=== PATIENT | male | born 1970 | race Caucasian/White ===

== ENCOUNTER 2022-06-09 16:10 | Inpatient (IN) | payer OTHER, BC, SELFPAY ==
[2022-06-09] VITALS (7 sets, daily range): BP systolic 112–177; BP diastolic 81–109; PULSE 61–67; RESP 16–20; TEMP 35.5; O2SAT 96–100; BMI 30.8
--- NOTE | 2022-06-09 17:40 | ED.GENADULT ---
HPI - General Adult General Date Seen: 06/09/22 Chief complaint: Abdominal Pain Stated complaint: Vomiting Headache Chills Time Seen by Provider: 06/09/22 17:03 Source: patient Mode of arrival: ambulatory Limitations: no limitations History of Present Illness HPI narrative: 52 Year old gentleman presents here with his son, has a history for the last 13 hours of epigastric generalized abdominal pain with pain into his back. He also has some neck discomfort, but relates this to the vomiting 11 times that he is done, and the recent surgery he had a C1-C2 fusion done at [facility] in [place] 3 weeks ago.Describes the pain as 10 out of 10 No fevers or chills, is not COVID vaccinated but then did have COVID in September. Emesis, no blood in his stools, no dysuria, does drink 6 oz of alcohol per day and recent hospitalizations secondary to pancreatitis. Is not currently on any pain medications post fusion. Severity: severe Quality: sharp and constant Pain Consistency: constant Relieving factors: movement Exacerbating factors: movement Associated symptoms: denies other symptoms, nausea/vomiting and weakness Treatments prior to arrival: none Related Data Allergies Allergy/AdvReac Type Severity Reaction Status Date / Time Penicillins Allergy Verified 06/09/22 20:29 Review of Systems Status of ROS: Reports: 10 or more systems reviewed and unremarkable except as noted in History and below [facility] Social History Smoking Status: Never smoker How many standard drinks containing alcohol do you have on a typical day: 5 or 6 How often do you have six or more drinks on one occasion: Daily or almost daily AUDIT-C Alcohol total score: 6 Non-prescribed substance use: denies use service: No Exam Const: Vital Signs, click to edit/add: Vital Signs - 24 hr 06/09/22 16:27 Temperature 95.9 F L Pulse Rate [Pulse Oximeter] 66 Respiratory Rate 20 Blood Pressure [Ri ght Upper Arm] 177/109 H Pulse Oximetry 100 Oxygen Delivery Me thod Room Air Documenting provider has reviewed patient's vital signs: yes Common normals: oriented x3 HENMT: Common normals: normocephalic, head/scalp atraumatic, hearing grossly normal bilaterally, external ears normal, EAC's normal, TM's normal bilaterally, external nose normal, nasal mucous membranes and turbinates normal, moist oral mucous membranes, oropharynx normal, dentition normal and gingiva normal Head and scalp: normocephalic and atraumatic Nose: external nose normal and nasal mucous membranes and turbinates normal External ear: external ears normal External auditory canal: EAC's normal Tympanic membrane: TM's normal bilaterally Eye: Common normals: PERRL, EOMs intact bilaterally, conjunctivae normal, no scleral icterus, no papilledema, normal visual dillard by confrontation and fundi normal bilaterally Conjunctiva: conjunctiva(e) normal Pupil: PERRL Direct Ophthalmoscopy: no papilledema and fundi normal bilaterally Neck & C-Spine: Common normals: full ROM, no lymphadenopathy, supple, no meningeal signs, no JVD, thyroid normal and no carotid bruits Thyroid: thyroid normal Other: I would from recent surgery, well healed, no swelling of his neck, Lymph: Lymphatic: no lymphadenopathy noted and no lymphedema noted Chest: Common normals: inspection of chest normal, palpation of chest normal, inspection of breasts normal and palpation of breasts normal Resp: Common normals: normal respiratory effort, no retractions, no use of accessory muscles, clear to auscultation bilaterally and percussion normal Auscultation: clear to auscultation bilaterally Percussion: percussion normal Cardio: Common normals: no JVD, regular rate, regular rhythm, S1 normal heart sound, S2 normal heart sound, no gallops, no clicks, no murmurs, no rub and peripheral pulses 2+ throughout Rate: regular rate Rhythm: regular rhythm Heart sounds: S1 normal and S2 normal Peripheral pulses: pulses 2+ throughout GI: Common normals: no hepatosplenomegaly Inspection: normal to inspection Auscultation: hypoactive bowel sounds Palpation: tender Details: epigastric and no hepatosplenomegaly Percussion: normal to percussion Rectal Exam - Male: deferred : Common normals: no CVA tenderness, external exam normal, testes normal, scrotum normal, no scrotal swelling and no hernias present Bladder/kidney exam: no CVA tenderness Back & Pelvis: Common normals: no CVA tenderness, thoracic and lumbar spine normal to inspection, no thoracic nor lumbar tenderness, thoraco-lumbar ROM normal and straight leg raise negative bilaterally Extremity: Common normals: normal to inspection, full ROM, normal capillary refill, no joint enlargement, no clubbing, cyanosis or edema, no calf tenderness and no pedal edema Neuro: Common normals: oriented x3, CN's II-XII intact bilaterally, moves all extremities, no focal motor deficits, no sensory deficits noted, deep tendon reflexes 2+ bilaterally and gait normal Meningeal signs: no meningeal signs Psych: Common normals: mental status grossly normal, thought process normal, cooperative, affect normal, speech normal, activity/motor behavior normal, denies hallucinations, denies homicidal ideation and denies suicidal ideation Speech: normal speech Thought process: normal thought process Skin: Common normals: no rashes or lesions noted, no wounds, skin turgor normal, no jaundice, no petechiae and no mottling General skin exam: no rashes or lesions noted, turgor normal and other ( melvin complexion over face,) Course Course Hospital Course: Patient's troponin is elevated, with delta of 0.10, over almost [address] spoke to Dr. Iftikhar Germain at [facility], he was unsure of the cause of the elevated troponin, but in this setting he thinks it is somehow related to alcohol, and the duodenitis. He has a lower suspicion even though the elevation is true, that this is cardiac in nature. He recommends however watching the patient, repeating the troponin, to see with the true delta is over the course of the night, consideration of an echo in the morning. Given the fact we do not have Cardiology here I did phone around the [facility], but have been unable to secure any bed at all in any institution, I did call [facility], [facility], [facility], and the [facility], [facility], and the [facility], and [facility], and [facility]. None of these had any availability for hospitalization. Given this fact we will attempt to have the patient admitted here if nothing else watched in the emergency room overnight. If he does worsen I would consider repeating his troponin, other than this morning, leaving him on telemetry, and treating him. He has pain is improved here with the use of the Dilaudid, and I did give him Protonix also. 10:47 p.m. I spoke to the patient explained to him that I have called every place in the [facility], I cannot get him admission anywhere with Cardiology, Cardiology however figures we can keep him here safely on telemetry and repeating his troponins, if he develops chest pain or his troponin bump significantly, to call them back. Heparin is not needed specially with the case of duodenitis that he has had. We views Dilaudid to good effect here along with the Protonix. I did speak to Dr. Cain Bender from inpatient who accepted him. Reevaluation(s) Reevaluation #1: Patient's pain is markedly better with the Dilaudid, aspirin Protonix, repeating his troponin, in the morning or q.6h as suggested. With further follow-up with cardiology if he becomes unstable or develops chest pain. Time: 22:10 Vital Signs Vital signs: Initial Vital Signs Temperature 95.9 F L 06/09/22 16:27 Temperature Source Temporal Artery Scan 06/09/22 16:27 Pulse Rate 66 06/09/22 16:27 Pulse Rhythm 06/09/22 16:27 Respiratory Rate 20 06/09/22 16:27 Blood Pressure 177/109 H 06/09/22 16:27 Blood Pressure Mean 131 06/09/22 16:27 Pulse Oximetry 100 06/09/22 16:27 Oxygen Delivery Method 06/09/22 16:27 Vital Signs Temperature 95.9 F L 06/09/22 16:27 Pulse Rate 66 06/09/22 16:27 Respiratory Rate 20 06/09/22 16:27 Blood Pressure 177/109 H 06/09/22 16:27 Pulse Oximetry 100 06/09/22 16:27 Oxygen Delivery Method 06/09/22 16:27 Temperature 95.9 F L 06/09/22 16:27 Pulse Rate 66 06/09/22 16:27 Respiratory Rate 20 06/09/22 16:27 Blood Pressure 177/109 H 06/09/22 16:27 Pulse Oximetry 100 06/09/22 16:27 Oxygen Delivery Method 06/09/22 16:27 Medical Decision Making MDM Narrative Medical decision making narrative: During this evaluation of this patient I considered multiple differential diagnosis is which included the life-threatening such as appendicitis, aortic aneurysm, mesenteric ischemia, bowel perforation, volvulus, and bowel obstruction. Other differential diagnosis is include but are not limited to cholecystitis, pancreatitis, hepatitis, gastritis, GERD, diverticulitis, peptic ulcer disease, pyelonephritis/UTI, renal colic/stone, testicular torsion as well as other acute scrotal processes, inflammatory bowel disease, as well as other etiologies Medical Records Medical records reviewed: Yes I reviewed the patient's medical records Lab Data Lab results reviewed: Yes I reviewed the patient's lab results Labs: Lab Results 06/09/22 06/09/22 06/09/22 Range/Units 17:26 17:46 17:46 WBC (4.50-11.00) K/uL RBC (4.30-5.90) m/uL Hgb (13.5-17.5) gm/dL Hct (37.0-53.0) % MCV (80-100) fL MCH (26-34) pg MCHC (32-36) gm/dL RDW Coeff of Juaquin (11.5-15.5) % Plt Count (140-440) K/uL Neut % (Auto) (42.0-72.0) % Lymph % (Auto) (20-44) % [place] % (Auto) (0.0-11.0) % Eos % (Auto) (0.0-7.0) % Baso % (Auto) (0.0-3.0) % Neut # (Auto) (1.7-7.0) K/uL Lymph # (Auto) (0.90-2.90) K/uL [place] # (Auto) (0.00-0.90) K/UL Eos # (Auto) (0.00-0.50) K/uL Baso # (Auto) (0.00-0.30) K/uL Abs Immat Gran (auto) (0.00-0.30) K/uL D-Dimer Quant (PE/DVT) (0.00-0.50) ug/ml Sodium (135-149) mmol/L Potassium (3.6-5.1) mmol/L Chloride (96-114) mmol/L Carbon Dioxide (20-32) mmol/L BUN (7-30) mg/dL Creatinine (0.5-1.5) mg/dL Estimated Creat Clear Estimated GFR ml/min Glucose (60-115) mg/dL Lactate (0.5-1.9) mmol/L Calcium (8.4-10.6) mg/dL Total Bilirubin (0.1-1.5) mg/dL Direct Bilirubin (0.0-0.5) mg/dL AST (12-35) U/L ALT (4-50) U/L Alkaline Phosphatase (40-150) U/L Troponin I (0.01-0.04) ng/mL C-Reactive Protein (0.5-1.0) mg/dL Total Protein (6.0-8.3) g/dL Albumin (3.3-5.0) g/dL Amylase (18-89) U/L Lipase (23-300) U/L Urine Color Yellow (Yellow) Urine Appearance Clear (Clear) Urine pH 8.5 (5.0-8.5) Ur Specific [place] 1.015 (1.000-1.030) Urine Protein 1+ A (Negative) Urine Glucose (UA) Negative (Negative) Urine Ketones Negative (Negative) Urine Blood Negative (Negative) Urine Nitrite Negative (Negative) Urine Bilirubin Negative (Negative) Urine Urobilinogen 1.0 (0.2-1.0) Ur Leukocyte Esterase Negative (Negative) Urine RBC 2-5 A (0-2) Urine WBC 2-5 (0-5) Ur Squamous Epith Cells None (None-Few) Urine Bacteria None (None) Urine Opiates Screen Negative (Negative) Ur Oxycodone Screen POSITIVE A* (Negative) Urine Methadone Screen Negative (Negative) Ur Propoxyphene Screen Negative (Negative) Ur Barbiturates Screen Negative (Negative) U Tricyclic Antidepress Negative (Negative) Ur Phencyclidine Scrn Negative (Negative) Ur Amphetamines Screen Negative (Negative) U Methamphetamines Scrn Negative (Negative) U Benzodiazepines Scrn Negative (Negative) Urine Cocaine Screen Negative (Negative) U Marijuana (THC) Screen Negative (Negative) Ur Drug Screen Comment See Note Ethyl Alcohol (0.01-0.03) % SARS-CoV-2 (PCR) (Negative) Influenza Type A (PCR) (Negative) Influenza Type B (PCR) (Negative) RSV (PCR) (Negative) POC Troponin I 0.19 H (0.01-0.04) ng/ml 06/09/22 06/09/22 06/09/22 Range/Units 17:56 17:56 17:56 WBC 13.77 H (4.50-11.00) K/uL RBC 4.47 (4.30-5.90) m/uL Hgb 14.7 (13.5-17.5) gm/dL Hct 42.3 (37.0-53.0) % MCV 95 (80-100) fL MCH 33 (26-34) pg MCHC 35 (32-36) gm/dL RDW Coeff of Juaquin 12.3 (11.5-15.5) % Plt Count 181 (140-440) K/uL Neut % (Auto) 88.9 H (42.0-72.0) % Lymph % (Auto) 6.7 L (20-44) % [place] % (Auto) 4.0 (0.0-11.0) % Eos % (Auto) 0.0 (0.0-7.0) % Baso % (Auto) 0.2 (0.0-3.0) % Neut # (Auto) 12.20 H (1.7-7.0) K/uL Lymph # (Auto) 0.90 (0.90-2.90) K/uL [place] # (Auto) 0.60 (0.00-0.90) K/UL Eos # (Auto) 0.00 (0.00-0.50) K/uL Baso # (Auto) 0.00 (0.00-0.30) K/uL Abs Immat Gran (auto) 0.03 (0.00-0.30) K/uL D-Dimer Quant (PE/DVT) (0.00-0.50) ug/ml Sodium 137 (135-149) mmol/L Potassium 3.7 (3.6-5.1) mmol/L Chloride 103 (96-114) mmol/L Carbon Dioxide 21 (20-32) mmol/L BUN 8 (7-30) mg/dL Creatinine 0.9 (0.5-1.5) mg/dL Estimated Creat Clear 99.14 Estimated GFR 103 ml/min Glucose 143 H (60-115) mg/dL Lactate 2.7 H (0.5-1.9) mmol/L Calcium 9.9 (8.4-10.6) mg/dL Total Bilirubin 1.2 (0.1-1.5) mg/dL Direct Bilirubin 0.6 H (0.0-0.5) mg/dL AST 65 H (12-35) U/L ALT 29 (4-50) U/L Alkaline Phosphatase 171 H (40-150) U/L Troponin I (0.01-0.04) ng/mL C-Reactive Protein < 0.5 L (0.5-1.0) mg/dL Total Protein 9.0 H (6.0-8.3) g/dL Albumin 4.5 (3.3-5.0) g/dL Amylase 69 (18-89) U/L Lipase 80 (23-300) U/L Urine Color (Yellow) Urine Appearance (Clear) Urine pH (5.0-8.5) Ur Specific [place] (1.000-1.030) Urine Protein (Negative) Urine Glucose (UA) (Negative) Urine Ketones (Negative) Urine Blood (Negative) Urine Nitrite (Negative) Urine Bilirubin (Negative) Urine Urobilinogen (0.2-1.0) Ur Leukocyte Esterase (Negative) Urine RBC (0-2) Urine WBC (0-5) Ur Squamous Epith Cells (None-Few) Urine Bacteria (None) Urine Opiates Screen (Negative) Ur Oxycodone Screen (Negative) Urine Methadone Screen (Negative) Ur Propoxyphene Screen (Negative) Ur Barbiturates Screen (Negative) U Tricyclic Antidepress (Negative) Ur Phencyclidine Scrn (Negative) Ur Amphetamines Screen (Negative) U Methamphetamines Scrn (Negative) U Benzodiazepines Scrn (Negative) Urine Cocaine Screen (Negative) U Marijuana (THC) Screen (Negative) Ur Drug Screen Comment Ethyl Alcohol < 0.01 L (0.01-0.03) % SARS-CoV-2 (PCR) (Negative) Influenza Type A (PCR) (Negative) Influenza Type B (PCR) (Negative) RSV (PCR) (Negative) POC Troponin I (0.01-0.04) ng/ml 06/09/22 06/09/22 06/09/22 Range/Units 17:56 17:56 18:15 WBC (4.50-11.00) K/uL RBC (4.30-5.90) m/uL Hgb (13.5-17.5) gm/dL Hct (37.0-53.0) % MCV (80-100) fL MCH (26-34) pg MCHC (32-36) gm/dL RDW Coeff of Juaquin (11.5-15.5) % Plt Count (140-440) K/uL Neut % (Auto) (42.0-72.0) % Lymph % (Auto) (20-44) % [place] % (Auto) (0.0-11.0) % Eos % (Auto) (0.0-7.0) % Baso % (Auto) (0.0-3.0) % Neut # (Auto) (1.7-7.0) K/uL Lymph # (Auto) (0.90-2.90) K/uL [place] # (Auto) (0.00-0.90) K/UL Eos # (Auto) (0.00-0.50) K/uL Baso # (Auto) (0.00-0.30) K/uL Abs Immat Gran (auto) (0.00-0.30) K/uL D-Dimer Quant (PE/DVT) 2.03 H (0.00-0.50) ug/ml Sodium (135-149) mmol/L Potassium (3.6-5.1) mmol/L Chloride (96-114) mmol/L Carbon Dioxide (20-32) mmol/L BUN (7-30) mg/dL Creatinine (0.5-1.5) mg/dL Estimated Creat Clear Estimated GFR ml/min Glucose (60-115) mg/dL Lactate (0.5-1.9) mmol/L Calcium (8.4-10.6) mg/dL Total Bilirubin (0.1-1.5) mg/dL Direct Bilirubin (0.0-0.5) mg/dL AST (12-35) U/L ALT (4-50) U/L Alkaline Phosphatase (40-150) U/L Troponin I 0.21 H* (0.01-0.04) ng/mL C-Reactive Protein (0.5-1.0) mg/dL Total Protein (6.0-8.3) g/dL Albumin (3.3-5.0) g/dL Amylase (18-89) U/L Lipase (23-300) U/L Urine Color (Yellow) Urine Appearance (Clear) Urine pH (5.0-8.5) Ur Specific [place] (1.000-1.030) Urine Protein (Negative) Urine Glucose (UA) (Negative) Urine Ketones (Negative) Urine Blood (Negative) Urine Nitrite (Negative) Urine Bilirubin (Negative) Urine Urobilinogen (0.2-1.0) Ur Leukocyte Esterase (Negative) Urine RBC (0-2) Urine WBC (0-5) Ur Squamous Epith Cells (None-Few) Urine Bacteria (None) Urine Opiates Screen (Negative) Ur Oxycodone Screen (Negative) Urine Methadone Screen (Negative) Ur Propoxyphene Screen (Negative) Ur Barbiturates Screen (Negative) U Tricyclic Antidepress (Negative) Ur Phencyclidine Scrn (Negative) Ur Amphetamines Screen (Negative) U Methamphetamines Scrn (Negative) U Benzodiazepines Scrn (Negative) Urine Cocaine Screen (Negative) U Marijuana (THC) Screen (Negative) Ur Drug Screen Comment Ethyl Alcohol (0.01-0.03) % SARS-CoV-2 (PCR) Negative SARS-CoV-2 (Negative) Influenza Type A (PCR) Negative PCR FLU A (Negative) Influenza Type B (PCR) Negative PCR FLU B (Negative) RSV (PCR) Negative PCR RSV (Negative) POC Troponin I (0.01-0.04) ng/ml 06/09/22 06/09/22 Range/Units 19:21 20:56 WBC (4.50-11.00) K/uL RBC (4.30-5.90) m/uL Hgb (13.5-17.5) gm/dL Hct (37.0-53.0) % MCV (80-100) fL MCH (26-34) pg MCHC (32-36) gm/dL RDW Coeff of Juaquin (11.5-15.5) % Plt Count (140-440) K/uL Neut % (Auto) (42.0-72.0) % Lymph % (Auto) (20-44) % [place] % (Auto) (0.0-11.0) % Eos % (Auto) (0.0-7.0) % Baso % (Auto) (0.0-3.0) % Neut # (Auto) (1.7-7.0) K/uL Lymph # (Auto) (0.90-2.90) K/uL [place] # (Auto) (0.00-0.90) K/UL Eos # (Auto) (0.00-0.50) K/uL Baso # (Auto) (0.00-0.30) K/uL Abs Immat Gran (auto) (0.00-0.30) K/uL D-Dimer Quant (PE/DVT) (0.00-0.50) ug/ml Sodium (135-149) mmol/L Potassium (3.6-5.1) mmol/L Chloride (96-114) mmol/L Carbon Dioxide (20-32) mmol/L BUN (7-30) mg/dL Creatinine (0.5-1.5) mg/dL Estimated Creat Clear Estimated GFR ml/min Glucose (60-115) mg/dL Lactate (0.5-1.9) mmol/L Calcium (8.4-10.6) mg/dL Total Bilirubin (0.1-1.5) mg/dL Direct Bilirubin (0.0-0.5) mg/dL AST (12-35) U/L ALT (4-50) U/L Alkaline Phosphatase (40-150) U/L Troponin I (0.01-0.04) ng/mL C-Reactive Protein (0.5-1.0) mg/dL Total Protein (6.0-8.3) g/dL Albumin (3.3-5.0) g/dL Amylase (18-89) U/L Lipase (23-300) U/L Urine Color (Yellow) Urine Appearance (Clear) Urine pH (5.0-8.5) Ur Specific [place] (1.000-1.030) Urine Protein (Negative) Urine Glucose (UA) (Negative) Urine Ketones (Negative) Urine Blood (Negative) Urine Nitrite (Negative) Urine Bilirubin (Negative) Urine Urobilinogen (0.2-1.0) Ur Leukocyte Esterase (Negative) Urine RBC (0-2) Urine WBC (0-5) Ur Squamous Epith Cells (None-Few) Urine Bacteria (None) Urine Opiates Screen (Negative) Ur Oxycodone Screen (Negative) Urine Methadone Screen (Negative) Ur Propoxyphene Screen (Negative) Ur Barbiturates Screen (Negative) U Tricyclic Antidepress (Negative) Ur Phencyclidine Scrn (Negative) Ur Amphetamines Screen (Negative) U Methamphetamines Scrn (Negative) U Benzodiazepines Scrn (Negative) Urine Cocaine Screen (Negative) U Marijuana (THC) Screen (Negative) Ur Drug Screen Comment Ethyl Alcohol (0.01-0.03) % SARS-CoV-2 (PCR) (Negative) Influenza Type A (PCR) (Negative) Influenza Type B (PCR) (Negative) RSV (PCR) (Negative) POC Troponin I 0.21 H 0.29 H (0.01-0.04) ng/ml Imaging Data CT scan - abdomen: Attestation: I have reviewed the pertinent imaging results. My impression: Inflammatory changes around the duodenum and head of the pancreas, Radiologist's impression: Inflammatory changes around the duodenum consistent with duodenitis or possible early ulcer formation, no evidence of aortic dissection. ECG Data Attestation: I personally reviewed and interpreted this ECG as follows: Interpretation: EKG shows no evidence of acute ST wave changes, repeat EKG shows similar. Critical Care Time Critical Care Time Critical Care Time: Yes Attestation: The patient required my highest level preparedness to intervene emergently and I personally spent this critical care time directly and personally managing the patient. This critical care time included: Obtaining a history; Examining the patient; Pulse oximetry; Ordering and reviewing of studies; Arranging urgent treatment with development of a management plan; Evaluation of patients response to treatment; Frequent reassessment discussions with other providers. This critical care time was performed to assess and manage the high probability of imminent life-threatening deterioration that could result in multiorgan failure. It was exclusive of separate billable procedures and treating other patients and teaching time. Total Critical Care Time in Minutes: 60 Discharge Plan Discharge Clinical Impression: Elevated troponin, Duodenitis Patient Disposition: Admitted As Inpatient Follow Up/Referrals: Provider,Not a Local [Primary Care Provider] -
[2022-06-09 18:01] LABS: Amphetamine Screen Urine Negative (Negative); Barbiturate Screen Urine Negative (Negative); Benzodiazepines Screen Urine Negative (Negative); Cannabinoid Screen Urine Negative (Negative); Cocaine Screen Urine Negative (Negative); Methadone Screen Urine Negative (Negative); Methamphetamines Screen Urine Negative (Negative); Opiate Screen Urine Negative (Negative); Phencyclidine Screen Urine Negative (Negative); Tricyclic Antidepressant Urine Negative (Negative)
[2022-06-09 18:02] LABS: Lactate* 2.7 mmol/L (0.5-1.9)
[2022-06-09 18:05] LABS: Basophils Percent Auto 0.2 % (0.0-3.0); Hematocrit 42.3 % (37.0-53.0); Hemoglobin* 14.7 gm/dL (13.5-17.5); Immature Granulocytes Abs Auto 0.03 K/uL (0.00-0.30); Lymphocytes Percent Auto 6.7 % (20-44); Mean Corpuscular HGB Conc 35 gm/dL (32-36); Mean Corpuscular Hemoglobin 33 pg (26-34); Mean Corpuscular Volume 95 fL (80-100); Neutrophils Percent Auto 88.9 % (42.0-72.0); Platelet Count* 181 K/uL (140-440); RDW Coefficient of Variation % 12.3 % (11.5-15.5); Red Blood Count 4.47 m/uL (4.30-5.90); Slide Review Reflex No; White Blood Count* 13.77 K/uL (4.50-11.00)
[2022-06-09 18:07] LABS: Appearance Urine Clear (Clear); Bilirubin Urine Negative (Negative); Blood Urine Negative (Negative); Color Urine Yellow (Yellow); Glucose Urine Negative (Negative); Ketones Urine Negative (Negative); Leukocyte Esterase Urine Negative (Negative); Nitrite Urine Negative (Negative); Protein Urine 1+ (Negative); Specific Gravity Urine 1.015 (1.000-1.030); pH Urine 8.5 (5.0-8.5)
[2022-06-09] MEDS: HYDROmorphone 0.5 mg/0.5 ml inj IVP ×2 (18:07→20:10)
[2022-06-09] MEDS: ONDANSETRON 2 MG/ML inj 4 MG IVP (18:07)
[2022-06-09 18:09] LABS: Troponin, Point-of-Care* 0.19 ng/ml (0.01-0.04)
[2022-06-09 18:14] LABS: Oxycodone Screen Urine POSITIVE (Negative)
[2022-06-09] MEDS: 0.9 % SODIUM CHLORIDE 1000 ml 1,000 ML IV (18:14)
[2022-06-09 18:21] LABS: Albumin* 4.5 g/dL (3.3-5.0); Chloride* 103 mmol/L (96-114); Potassium* 3.7 mmol/L (3.6-5.1); Sodium* 137 mmol/L (135-149)
[2022-06-09 18:23] LABS: Amylase* 69 U/L (18-89); Creatinine* 0.9 mg/dL (0.5-1.5); Est. Creatinine Clearance* 99.14; Estimated Glomerular Filt Rate 103 ml/min
[2022-06-09 18:24] LABS: Alkaline Phosphatase* 171 U/L (40-150); Aspartate Amino Transferase* 65 U/L (12-35); Bilirubin Direct* 0.6 mg/dL (0.0-0.5); Bilirubin Total* 1.2 mg/dL (0.1-1.5); Blood Urea Nitrogen* 8 mg/dL (7-30); Calcium* 9.9 mg/dL (8.4-10.6); Carbon Dioxide* 21 mmol/L (20-32); Glucose* 143 mg/dL (60-115); Lipase* 80 U/L (23-300)
[2022-06-09 18:25] LABS: Alanine Aminotransferase* 29 U/L (4-50)
[2022-06-09 18:31] LABS: C Reactive Protein* < 0.5 mg/dL (0.5-1.0); Ethanol* < 0.01 % (0.01-0.03)
[2022-06-09 18:38] LABS: PCR FLU A Negative PCR FLU A (Negative); PCR FLU B Negative PCR FLU B (Negative); PCR RSV Negative PCR RSV (Negative)
[2022-06-09 18:42] LABS: SARS PCR* Negative SARS-CoV-2 (Negative)
[2022-06-09 18:49] LABS: Troponin I* 0.21 ng/mL (0.01-0.04)
--- NOTE | 2022-06-09 18:53 | ED.NURSE ---
Critical lab: Troponin 0.21, handed to at 1850
--- NOTE | 2022-06-09 19:12 | CRLHL7_ITS ---
For Patients: As a result of the Century Cures Act, medical imaging exams and procedure reports are released immediately into your electronic medical record. You may view this report before your referring provider. If you have questions, please contact your health care provider. INDICATION: ELEVATED TROPONIN TECHNIQUE: Chest 2 views. COMPARISON: 02/27/21 FINDINGS: Cardiovascular and mediastinum: Heart size and vasculature are normal in caliber and appearance. Mediastinum is within normal limits. Lungs and pleural spaces: Lungs are clear. No sign of infiltrate or mass. No sign of pleural effusion. No pneumothorax. Bones and soft tissues: No significant findings. IMPRESSION: Unremarkable chest. Dictated by: Iftikhar De Jesus MD @ 06/09/2022 19:52:33 (Electronically Signed)
[2022-06-09] MEDS: ASPIRIN 81 MG TAB.CHEW 324 MG PO (19:23)
[2022-06-09 19:32] LABS: Troponin, Point-of-Care* 0.21 ng/ml (0.01-0.04)
--- NOTE | 2022-06-09 19:43 | CRLHL7_ITS ---
For Patients: As a result of the Century Cures Act, medical imaging exams and procedure reports are released immediately into your electronic medical record. You may view this report before your referring provider. If you have questions, please contact your health care provider. INDICATION: ELEVATED TROPONIN ABD PAIN TECHNIQUE: CT chest without contrast and CT chest, abdomen and pelvis acquired with 95 cc Isovue 370 intravenous contrast. Contrast, dissection protocol. COMPARISON: None. FINDINGS: CHEST: Cardiovascular structures: The unenhanced images demonstrate no evidence of aortic intramural hematoma. The entire aorta is normal in caliber and there is no sign of aortic dissection. Heart size is normal. Mediastinum and jin: No mass or adenopathy. Lungs and pleura: Lungs are clear. No pleural effusions. Incidental right apical bleb. Chest wall and axilla: No mass or adenopathy. Bones: Unremarkable for age. ABDOMEN AND PELVIS: Liver: Fatty infiltration. Gallbladder and bile ducts: Unremarkable. Pancreas: Unremarkable. Spleen: Unremarkable. Adrenal glands: Unremarkable. Kidneys: Unremarkable. GI tract: Wall thickening of the proximal duodenum, measuring up to 1 cm. Adjacent inflammatory changes noted in the surrounding fat. No free air. No abscess. Vascular structures: Unremarkable. Lymph nodes: Mildly enlarged reactive lymph nodes in the upper retroperitoneum noted measuring up to 1.2 cm. Miscellaneous: Unremarkable. No free air or significant free fluid. Pelvic Organs: Unremarkable. Bones: Unremarkable for age. IMPRESSION: No evidence of aortic dissection or pulmonary embolism. Moderately severe duodenitis involving the proximal duodenum with reactive adenopathy. This may be secondary to duodenal ulcer. No abscess or free air. Please note that all CT scans at this facility use dose modulation, iterative reconstruction, and/or weight-based dosing when appropriate to reduce radiation dose to as low as reasonably achievable. Dictated by Iftikhar Negrete MD @ 06/09/2022 8:57:44 PM (Electronically Signed)
[2022-06-09 19:44] LABS: D Dimer Quantitative* 2.03 ug/ml (0.00-0.50)
[2022-06-09] MEDS: 0.9 % SODIUM CHLORIDE 500 ML 500 ML IV (20:10)
[2022-06-09 21:22] LABS: Troponin, Point-of-Care* 0.29 ng/ml (0.01-0.04)
[2022-06-09] MEDS: PANTOPRAZOLE SODIUM 40 MG INJ IVP (21:52)
--- NOTE | 2022-06-09 23:50 | ED.NURSE ---
report to med surg, pt transported via [facility] by [facility]
[2022-06-10] VITALS (13 sets, daily range): BP systolic 117–151; BP diastolic 80–96; PULSE 52–71; RESP 16–18; TEMP 36.6–36.8; O2SAT 97–99
--- NOTE | 2022-06-10 01:18 | P.IMCN_ITS ---
Date of Consult Consult date: 06/10/22 Primary Care Provider: Not a Local Provider Consult Narrative Narrative: Deepak Lerma Hospitalist ADMISSION SUPPORT NOTE eHospitalist was contacted by Dr. Bender with request of admission support. Chief complaint: Epigastric pain HPI: The patient reports that around 5 AM he just was not feeling well. He developed pain in his upper abdomen that radiated to his back and then he also developed pain in his neck with associated headache. He then started vomiting and had about 11 episodes of bilious vomiting. The pain in his upper abdomen was constant, described as stabbing in nature however the pain in his back and neck were just a constant ache. Work-up in the ED revealed concern for duodenitis. Review of systems other than mentioned above is negative Home Medications: Patient unable to remember the name of his medications Pertinent Medical History: GERD, depression, gout, BPH, hypertension, neck surgery about 3 and half weeks ago, back surgery Pertinent Social History: , quit smoking about 12 years ago, denies drugs of abuse however drinks about 6 beers per night on average. 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 [facility] Medical History Acid reflux Anxiety Depression Enlarged prostate Gout Hypertension Social History Highest level of school completed/degree received: high school graduate Smoking Status: Former smoker What tobacco products do you use: cigarettes Smoking quit date/years: <= 15 years ago Do you use any of these nicotine containing products: None Second hand tobacco smoke exposure: No How often do you have a drink containing alcohol: 4 or more times a week Alcohol type: beer Alcohol type details: 6 beers/day How many standard drinks containing alcohol do you have on a typical day: 5 or 6 How often do you have six or more drinks on one occasion: Daily or almost daily AUDIT-C Alcohol total score: 10 Non-prescribed substance use: denies use Caffeine: Yes (rare) service: No Meds Home Medications and Allergies Home Medications Medication Instructions Recorded Confirmed Type Unobtainable 06/10/22 06/10/22 History Allergies Allergy/AdvReac Type Severity Reaction Status Date / Time Penicillins Allergy Verified 06/09/22 20:29 Exam Narrative: Exam Narrative: Exam (performed via interactive video with assistance of bedside nurse): General: Alert, cooperative, no acute distress HEENT: Pupils reported ERRL, oral mucosa pink and moist without erythema Lungs: Clear to auscultation bilaterally without crackle or wheeze CV: Regular rate and rhythm without loud murmur rub or gallop Abd does exhibit signs of pain with palpation done by bedside nurse in the upper abdomen with voluntary guarding, soft Ext: No pitting edema noted Skin: No rashes, bruises or lesions appreciated on gross visualization of exposed skin Neuro: Alert, oriented x 3. CN III -VII, XI, XII grossly intact, moves all extremities without any significant focal deficit appreciated Const: Vital Signs, click to edit/add: Vital Signs - 24 hr 06/09/22 16:27 06/09/22 23:40 06/09/22 23:00 Temperature 95.9 F L Pulse Rate Pulse Rate [Pulse Oximeter] 66 67 66 Pulse Rate [Right Pulse Oximeter] Respiratory Rate 20 16 16 Blood Pressure [Ri ght Arm] Blood Pressure [Ri ght Upper Arm] 177/109 H 137/86 130/104 H Pulse Oximetry 100 98 97 Oxygen Delivery Wy thod Room Air Room Air Room Air 06/09/22 22:20 06/09/22 21:40 06/09/22 21:00 Temperature Pulse Rate Pulse Rate [Pulse Oximeter] 61 61 61 Pulse Rate [Right Pulse Oximeter] Respiratory Rate 16 16 16 Blood Pressure [Ri ght Arm] Blood Pressure [Ri ght Upper Arm] 138/102 H 112/88 147/81 H Pulse Oximetry 97 96 97 Oxygen Delivery Wy thod Room Air Room Air Room Air 06/09/22 20:20 06/10/22 00:19 06/10/22 00:23 Temperature Pulse Rate 63 Pulse Rate [Pulse Oximeter] 64 Pulse Rate [Right Pulse Oximeter] Respiratory Rate 16 16 Blood Pressure [Ri ght Arm] Blood Pressure [Ri ght Upper Arm] 145/90 H Pulse Oximetry 98 97 Oxygen Delivery Wy thod Room Air Room Air 06/10/22 00:59 Temperature 98 F Pulse Rate Pulse Rate [Pulse Oximeter] Pulse Rate [Right Pulse Oximeter] 65 Respiratory Rate 16 Blood Pressure [Ri ght Arm] 151/95 H Blood Pressure [Ri ght Upper Arm] Pulse Oximetry 97 Oxygen Delivery Wy thod Room Air Labs Labs: Short CBC 06/09/22 Range/Units 17:56 WBC 13.77 H (4.50-11.00) K/uL Hgb 14.7 (13.5-17.5) gm/dL Hct 42.3 (37.0-53.0) % Plt Count 181 (140-440) K/uL BMP 06/09/22 17:56 Sodium 137 Potassium 3.7 Chloride 103 Carbon Dioxide 21 BUN 8 Creatinine 0.9 Glucose 143 H Calcium 9.9 Cardiac Enzymes 06/09/22 Range/Units 18:15 Troponin I 0.21 H* (0.01-0.04) ng/mL Liver Function 06/09/22 Range/Units 17:56 Total Bilirubin 1.2 (0.1-1.5) mg/dL Direct Bilirubin 0.6 H (0.0-0.5) mg/dL AST 65 H (12-35) U/L ALT 29 (4-50) U/L Alkaline Phosphatase 171 H (40-150) U/L Albumin 4.5 (3.3-5.0) g/dL Urine 06/09/22 Range/Units 17:46 Urine Color Yellow (Yellow) Urine Appearance Clear (Clear) Urine pH 8.5 (5.0-8.5) Ur Specific [place] 1.015 (1.000-1.030) Urine Protein 1+ A (Negative) Urine Glucose (UA) Negative (Negative) Assessment and Plan Assessment and plan (1) Duodenitis: Status: Acute (2) Elevated troponin: Status: Acute Plan EKG: Per my interpretation showed NSR at 75 bpm with no ischemic changes Assessment and Plan: 1. Upper abdominal pain-secondary to duodenitis with concern for peptic ulcer disease. He will be placed on Protonix twice daily. Kept n.p.o. until he can be seen by surgery. I am uncertain whether an EGD is planned for tomorrow versus outpatient to evaluate and obtain biopsies. 2. Daily alcohol use-of at least 6 beers per day. Concern for alcohol withdrawal. Placed on CIWA with Ativan as well as thiamine and folic acid 3. Hypertension-he does not remember his medications however resume once medications reconciled 4. Depression-resume antidepressants once medications reconciled. Stable. 5. Gout-stable. Continue allopurinol once reconciled 6. BPH-stable. Continue Flomax once reconciled. 7. Elevated troponin-Per report, the ED provider discussed with cardiology who did not feel like the elevated troponin is related to coronary artery disease however more so to duodenitis. Continue to trend troponin. 8. DVT prophylaxis-SCDs 9. CODE STATUS full code discussed with patient Chart review was performed as well as evaluation of the patient via video. Thank you for involving ehospitalist. Please contact [phone] if further assistance is needed.
[2022-06-10] MEDS: OXYCODONE 5 MG TABLET PO ×4 (01:47→20:03)
[2022-06-10] MEDS: ACETAMINOPHEN 325 MG TABLET 650 MG PO ×4 (01:48→20:04)
[2022-06-10 02:02] LABS: Lactate* 0.9 mmol/L (0.5-1.9)
[2022-06-10 02:36] LABS: Troponin I* 0.44 ng/mL (0.01-0.04)
[2022-06-10 06:25] LABS: Basophils Absolute Auto 0.03 K/uL (0.00-0.30); Basophils Percent Auto 0.3 % (0.0-3.0); Eosinophils Absolute Auto 0.08 K/uL (0.00-0.50); Eosinophils Percent Auto 0.8 % (0.0-7.0); Hematocrit 38.4 % (37.0-53.0); Immature Granulocytes Abs Auto 0.02 K/uL (0.00-0.30); Lymphocytes Percent Auto 19.1 % (20-44); Mean Corpuscular HGB Conc 34 gm/dL (32-36); Mean Corpuscular Hemoglobin 33 pg (26-34); Mean Corpuscular Volume 98 fL (80-100); Monocytes Percent Auto 7.2 % (0.0-11.0); Neutrophils Percent Auto 72.4 % (42.0-72.0); Platelet Count* 158 K/uL (140-440); RDW Coefficient of Variation % 12.7 % (11.5-15.5); Red Blood Count 3.91 m/uL (4.30-5.90); White Blood Count* 9.96 K/uL (4.50-11.00)
[2022-06-10 06:43] LABS: Albumin* 3.9 g/dL (3.3-5.0); Chloride* 105 mmol/L (96-114)
[2022-06-10 06:44] LABS: Potassium* 3.4 mmol/L (3.6-5.1); Sodium* 138 mmol/L (135-149)
[2022-06-10 06:46] LABS: Alkaline Phosphatase* 133 U/L (40-150); Aspartate Amino Transferase* 55 U/L (12-35); Bilirubin Total* 0.9 mg/dL (0.1-1.5); Blood Urea Nitrogen* 9 mg/dL (7-30); Carbon Dioxide* 23 mmol/L (20-32); Creatinine* 0.9 mg/dL (0.5-1.5); Est. Creatinine Clearance* 99.14; Estimated Glomerular Filt Rate 103 ml/min; Total Protein* 7.7 g/dL (6.0-8.3)
[2022-06-10 06:47] LABS: Alanine Aminotransferase* 21 U/L (4-50); Calcium* 8.8 mg/dL (8.4-10.6); Glucose* 102 mg/dL (60-115)
[2022-06-10 06:57] LABS: Hemoglobin A1C* 5.08 % (0-5.6)
[2022-06-10 07:05] LABS: Slide Review Reflex No
[2022-06-10 07:16] LABS: Troponin I* 0.69 ng/mL (0.01-0.04)
[2022-06-10] MEDS: 0.9 % SODIUM CHLORIDE 500 ML 500 ML IV (07:36)
[2022-06-10] MEDS: MORPHINE 4 MG/ML INJ IVP ×3 (07:36→22:31)
--- NOTE | 2022-06-10 07:41 | PC.NURSE ---
Pt pleasant and cooperative. indep in room. Rating pain 4/10 in right upper abd, Oxy given with relief. Denies chest pain. Denies palpations. No BM. Lula urine output. BP elevated. Other VSS & WNL. Tele = NSR. No Ativan needed per [facility] protocol. ?
--- NOTE | 2022-06-10 07:50 | P.IMHP_ITS ---
Hospitalist- H&P: HPI History of Present Illness Date Seen: 06/10/22 Chief complaint: Vomiting Headache Chills Narrative: Jonathan Cancino is a 52 year old male who presented to the emergency room last night for abdominal pain. Starting yesterday morning, he began having pain in his epigastrium, radiating into his back. This is accompanied by nausea and bilious emesis. He denied hematemesis. No chest pain or dyspnea. No lower extremity edema. ER course and findings: - CT scan of chest abdomen and pelvis was negative for pancreatitis or acute aortic process; positive for duodenitis - troponin elevated - no acute changes on EKG. ER physician discussed case with Cardiology, who felt that patient could be monitored on telemetry with close follow-up - Admitted by [facility] telehospitalist overnight, started on BID PPI When I see patient this morning, he is hungry and has no other complaints. He specifically denies chest pain or dyspnea. His troponin has continued to increase without acute changes on EKG. Past medical history includes essential hypertension, anxiety, and gout. Also has GERD and BPH. Had a head injury approximately 2 years ago, with some chronic neck pain as result. Had a neck surgery within the past year, no problems with anesthesia. 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 He was admitted to the hospital at that time, seen by Neurology, treated with anti epileptics for a short time, has not been on anti seizure medications for > 6 months and has had no seizures since. Nonsmoker (quit 12 years ago). Drinks 5-6 light beers every night. No history of withdrawal. 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 His half brother had a heart attack, no other significant family history for coronary artery disease. Review of Systems Status of ROS: Reports: 10 or more systems reviewed and unremarkable except as noted in History and below [facility] Medical History (Updated 06/10/22 @ 15:52 by Kimberley Rivera MD) Acid reflux Alcohol abuse, daily use Anxiety Depression Enlarged prostate Essential hypertension Gout Hypertension Perianal abscess Surgical History (Updated 06/10/22 @ 13:20 by Marybel Lopes MD) S/P cervical spinal fusion S/P knee surgery Social History (Updated 06/10/22 @ 13:21 by Marybel Lopes MD) Narrative: Not working currently secondary to disability from spine surgery. Highest level of school completed/degree received: high school graduate Smoking Status: Former smoker What tobacco products do you use: cigarettes Smoking quit date/years: <= 15 years ago Do you use any of these nicotine containing products: None Second hand tobacco smoke exposure: No How often do you have a drink containing alcohol: 4 or more times a week Alcohol type: beer Alcohol type details: 6 beers/day How many standard drinks containing alcohol do you have on a typical day: 5 or 6 How often do you have six or more drinks on one occasion: Daily or almost daily AUDIT-C Alcohol total score: 10 Non-prescribed substance use: denies use Caffeine: Yes (rare) service: No Meds Home Medications and Allergies Home Medications Medication Instructions Recorded Confirmed Type allopurinol 300 mg tablet 300 mg PO DAILY 06/10/22 06/10/22 History atenolol 100 mg tablet 100 mg PO DAILY 06/10/22 06/10/22 History bupropion HCl 300 mg 24 hr tablet, 300 mg PO DAILY 06/10/22 06/10/22 History extended release citalopram 10 mg tablet 10 mg PO DAILY 06/10/22 06/10/22 History hydroxyzine HCl 25 mg tablet 25 mg PO QID PRN 06/10/22 06/10/22 History lisinopril 10 1 tab PO DAILY 06/10/22 06/10/22 History mg-hydrochlorothiazide 12.5 mg tablet omeprazole 20 mg capsule,delayed 20 mg PO DAILY 06/10/22 06/10/22 History release tamsulosin 0.4 mg capsule 0.4 mg PO DAILY 06/10/22 06/10/22 History Allergies Allergy/AdvReac Type Severity Reaction Status Date / Time Penicillins Allergy Verified 06/09/22 20:29 Exam Narrative: Exam Narrative: GEN: Alert and oriented, answering questions appropriately HEENT: Normal external ears, EOMIs bilaterally, no scleral icterus CV: RRR, No concerning murmurs, rubs, or gallops R: LCTA bilaterally without concerning wheezing, rales, or rhonchi Abdomen: Soft, mild tenderness to palpation over the epigastrium Ext: wwp, no concerning edema Skin: No concerning skin lesions or rashes on exposed skin Neuro: Nonfocal Psych: Appropriate Const: Vital Signs, click to edit/add: Vital Signs - 24 hr 06/09/22 16:27 06/09/22 23:40 06/09/22 23:00 Temperature 95.9 F L Pulse Rate Pulse Rate [Pulse Oximeter] 66 67 66 Pulse Rate [Right Pulse Oximeter] Respiratory Rate 20 16 16 Blood Pressure [Ri ght Arm] Blood Pressure [Ri ght Upper Arm] 177/109 H 137/86 130/104 H Pulse Oximetry 100 98 97 Oxygen Delivery Me thod Room Air Room Air Room Air 06/09/22 22:20 06/09/22 21:40 06/09/22 21:00 Temperature Pulse Rate Pulse Rate [Pulse Oximeter] 61 61 61 Pulse Rate [Right Pulse Oximeter] Respiratory Rate 16 16 16 Blood Pressure [Ri ght Arm] Blood Pressure [Ri ght Upper Arm] 138/102 H 112/88 147/81 H Pulse Oximetry 97 96 97 Oxygen Delivery Ia thod Room Air Room Air Room Air 06/09/22 20:20 06/10/22 00:19 06/10/22 00:23 Temperature Pulse Rate 63 Pulse Rate [Pulse Oximeter] 64 Pulse Rate [Right Pulse Oximeter] Respiratory Rate 16 16 Blood Pressure [Ri ght Arm] Blood Pressure [Ri ght Upper Arm] 145/90 H Pulse Oximetry 98 97 Oxygen Delivery Ia thod Room Air Room Air 06/10/22 00:59 06/10/22 02:48 06/10/22 03:17 Temperature 98 F 97.8 F Pulse Rate 71 Pulse Rate [Pulse Oximeter] Pulse Rate [Right Pulse Oximeter] 65 71 Respiratory Rate 16 18 Blood Pressure [Ri ght Arm] 151/95 H 138/89 Blood Pressure [Ri ght Upper Arm] Pulse Oximetry 97 99 Oxygen Delivery Me thod Room Air Room Air 06/10/22 07:46 Temperature 98.2 F Pulse Rate Pulse Rate [Pulse Oximeter] Pulse Rate [Right Pulse Oximeter] 55 L Respiratory Rate 16 Blood Pressure [Ri ght Arm] 144/96 H Blood Pressure [Ri ght Upper Arm] Pulse Oximetry 98 Oxygen Delivery Ia thod Room Air Hospitalist - H&P: Result Labs Labs: Short CBC 06/09/22 06/10/22 Range/Units 17:56 06:05 WBC 13.77 H 9.96 (4.50-11.00) K/uL Hgb 14.7 13.0 L (13.5-17.5) gm/dL Hct 42.3 38.4 (37.0-53.0) % Plt Count 181 158 (140-440) K/uL BMP 06/09/22 06/10/22 17:56 06:05 Sodium 137 138 Potassium 3.7 3.4 L Chloride 103 105 Carbon Dioxide 21 23 BUN 8 9 Creatinine 0.9 0.9 Glucose 143 H 102 Calcium 9.9 8.8 Cardiac Enzymes 06/09/22 06/10/22 06/10/22 Range/Units 18:15 01:55 06:05 Troponin I 0.21 H* 0.44 H* 0.69 H* (0.01-0.04) ng/mL Liver Function 06/09/22 06/10/22 Range/Units 17:56 06:05 Total Bilirubin 1.2 0.9 (0.1-1.5) mg/dL Direct Bilirubin 0.6 H (0.0-0.5) mg/dL AST 65 H 55 H (12-35) U/L ALT 29 21 (4-50) U/L Alkaline Phosphatase 171 H 133 (40-150) U/L Albumin 4.5 3.9 (3.3-5.0) g/dL Urine 06/09/22 Range/Units 17:46 Urine Color Yellow (Yellow) Urine Appearance Clear (Clear) Urine pH 8.5 (5.0-8.5) Ur Specific [place] 1.015 (1.000-1.030) Urine Protein 1+ A (Negative) Urine Glucose (UA) Negative (Negative) ECG ECG interpretation date: 06/10/22 ECG interpretation time: 07:10 Assessment and Plan Assessment and plan (1) NSTEMI (non-ST elevated myocardial infarction): Status: Acute Assessment and Plan: Patient has reassuring EKG findings and no chest pain. Discussed the case with Dr. Turk of Cardiology at [facility]; he does not feel that any acute pharmacologic interventions are necessary at this time. He recommends a nuclear stress test which we are unable to perform today; TTE will be obtained and we will obtain nuclear med stress test as an outpatient. Follow troponins to [facility]. Add statin to home medications. (2) Elevated troponin: Status: Acute (3) Duodenitis: Status: Acute Assessment and Plan: Reviewed case with Dr. Lopes of general surgery, appreciate her input. Will continue to keep patient NPO at this time, continue IV PPI BID. Trend hemoglobin, guaiac stool, H Pylori pending. (4) Essential hypertension: Status: Acute Assessment and Plan: Restart home meds today, BP stable. (5) Alcohol abuse, daily use: Status: Acute Assessment and Plan: Started on thiamine by ARIELLE overnight, no history of withdrawal. Follow CIWA scores.
[2022-06-10] MEDS: lisinopriL 10 MG TABLET PO (08:21)
[2022-06-10] MEDS: buPROPion XL 150 MG TABLET 300 MG PO (08:21)
[2022-06-10] MEDS: FOLIC ACID 1 MG TABLET PO (08:22)
[2022-06-10] MEDS: THIAMINE 100 MG TABLET PO (08:22)
[2022-06-10] MEDS: hydroCHLOROthiazide 12.5 MG CAPSULE PO (08:22)
[2022-06-10] MEDS: TAMSULOSIN HCL 0.4 MG CAPSULE PO (08:23)
[2022-06-10] MEDS: atenoloL 50 MG TABLET 100 MG PO (08:23)
[2022-06-10] MEDS: PANTOPRAZOLE SODIUM 40 MG INJ IVP ×2 (08:23→20:06)
[2022-06-10] MEDS: CITALOPRAM HYDROBROMIDE 20 MG TABLET 10 MG PO (08:23)
[2022-06-10] MEDS: 0.9 % SODIUM CHLORIDE 1000 ml 1,000 ML 100 ML IV ×2 (11:42→22:32)
--- NOTE | 2022-06-10 13:21 | P.GSCN_ITS ---
History of Present Illness Consult details Date Seen: 06/10/22 Consult date: 06/10/22 Narrative: The patient is a 52-year-old male who presents to the emergency department last evening with feeling unwell and developing epigastric and right upper quadrant pain. He states that he was working in his garage until 3:00 a.m. yesterday morning and then at 5:00 a.m. began feeling unwell. He states that he had developed right upper quadrant epigastric pain as well as bloating and vomited 11 times. After that he had some back and neck pain but thinks this is because he recently had a cervical spine fusion 3 weeks ago. He had shortness of breath 20 presented to the emergency department but no chest pain. He did not vomited any blood. He has not had a bowel movement since this occurred but he has not had blood in his stool. In the emergency department he was found to have severe duodenitis. He states that he has had that before and was hospitalized here. He thinks he has had an upper endoscopy previously. He feels better today and would like to eat but his pain is still there (though improved). Review of Systems Status of ROS: Reports: 10 or more systems reviewed and unremarkable except as noted in History and below [facility] Medical History (Updated 06/10/22 @ 13:20 by Marybel Lopes MD) Acid reflux Alcohol abuse, daily use Anxiety Depression Enlarged prostate Essential hypertension Gout Hypertension Perianal abscess Surgical History (Updated 06/10/22 @ 13:20 by Marybel Lopes MD) S/P cervical spinal fusion S/P knee surgery Social History (Updated 06/10/22 @ 13:21 by Marybel Lopes MD) Narrative: Not working currently secondary to disability from spine surgery. Highest level of school completed/degree received: high school graduate Smoking Status: Former smoker What tobacco products do you use: cigarettes Smoking quit date/years: <= 15 years ago Do you use any of these nicotine containing products: None Second hand tobacco smoke exposure: No How often do you have a drink containing alcohol: 4 or more times a week Alcohol type: beer Alcohol type details: 6 beers/day How many standard drinks containing alcohol do you have on a typical day: 5 or 6 How often do you have six or more drinks on one occasion: Daily or almost daily AUDIT-C Alcohol total score: 10 Non-prescribed substance use: denies use Caffeine: Yes (rare) service: No Meds Home Medications and Allergies Home Medications Medication Instructions Recorded Confirmed Type allopurinol 300 mg tablet 300 mg PO DAILY 06/10/22 06/10/22 History atenolol 100 mg tablet 100 mg PO DAILY 06/10/22 06/10/22 History bupropion HCl 300 mg 24 hr tablet, 300 mg PO DAILY 06/10/22 06/10/22 History extended release citalopram 10 mg tablet 10 mg PO DAILY 06/10/22 06/10/22 History hydroxyzine HCl 25 mg tablet 25 mg PO QID PRN 06/10/22 06/10/22 History lisinopril 10 1 tab PO DAILY 06/10/22 06/10/22 History mg-hydrochlorothiazide 12.5 mg tablet omeprazole 20 mg capsule,delayed 20 mg PO DAILY 06/10/22 06/10/22 History release tamsulosin 0.4 mg capsule 0.4 mg PO DAILY 06/10/22 06/10/22 History Allergies Allergy/AdvReac Type Severity Reaction Status Date / Time Penicillins Allergy Verified 06/09/22 20:29 Exam Narrative: Exam Narrative: General appearance: Alert, cooperative, and in no distress Eyes: PERRLA, eye lids clear, and sclera white HENT Head: Normocephalic Pulmonary: CTAB Cardiovascular Heart: RRR Gastrointestinal Abdominal: No scars, tender in epigastric region and RUQ. No rebound or guarding Musculoskeletal: Extremities: Upper: Both upper extremities have normal joint range of motion and intact strength. Lower: Both lower extremities have normal joint range of motion and intact strength. Skin: Normal skin color, texture, and turgor. No rashes or lesions. Neurologic: No focal deficits Psychiatric: Alert, oriented, cooperative, normal affect. Const: Vital Signs, click to edit/add: Vital Signs - 24 hr 06/09/22 16:27 06/09/22 23:40 06/09/22 23:00 Temperature 95.9 F L Pulse Rate Pulse Rate [Pulse Oximeter] 66 67 66 Pulse Rate [Right Pulse Oximeter] Respiratory Rate 20 16 16 Blood Pressure [Ri ght Arm] Blood Pressure [Ri ght Upper Arm] 177/109 H 137/86 130/104 H Pulse Oximetry 100 98 97 Oxygen Delivery Me thod Room Air Room Air Room Air 06/09/22 22:20 06/09/22 21:40 06/09/22 21:00 Temperature Pulse Rate Pulse Rate [Pulse Oximeter] 61 61 61 Pulse Rate [Right Pulse Oximeter] Respiratory Rate 16 16 16 Blood Pressure [Ri ght Arm] Blood Pressure [Ri ght Upper Arm] 138/102 H 112/88 147/81 H Pulse Oximetry 97 [address] [facility] Room Air Room Air Room Air 06/09/22 20:20 06/10/22 00:19 06/10/22 00:23 Temperature Pulse Rate 63 Pulse Rate [Pulse Oximeter] 64 Pulse Rate [Right Pulse Oximeter] Respiratory Rate 16 16 Blood Pressure [Ri ght Arm] Blood Pressure [Ri ght Upper Arm] 145/90 H Pulse Oximetry [address] [facility] Room Air Room Air 06/10/22 00:59 06/10/22 02:48 06/10/22 03:17 Temperature 98 F 97.8 F Pulse Rate 71 Pulse Rate [Pulse Oximeter] Pulse Rate [Right Pulse Oximeter] 65 71 Respiratory Rate 16 18 Blood Pressure [Ri ght Arm] 151/95 H 138/89 Blood Pressure [Ri ght Upper Arm] Pulse Oximetry [address] [facility] Room Air Room Air 06/10/22 07:46 06/10/22 07:55 06/10/22 11:37 Temperature 98.2 F 97.9 F Pulse Rate 62 Pulse Rate [Pulse Oximeter] Pulse Rate [Right Pulse Oximeter] 55 L 55 L Respiratory Rate 16 16 Blood Pressure [Ri ght Arm] 144/96 H 117/80 Blood Pressure [Ri ght Upper Arm] Pulse Oximetry [address] [facility] Room Air Room Air Results Labs Labs: Abnormal lab results 06/09/22 06/09/22 06/09/22 Range/Units 17:26 17:46 17:46 WBC (4.50-11.00) K/uL RBC (4.30-5.90) m/uL Hgb (13.5-17.5) gm/dL Neut % (Auto) (42.0-72.0) % Lymph % (Auto) (20-44) % Neut # (Auto) (1.7-7.0) K/uL D-Dimer Quant (PE/DVT) (0.00-0.50) ug/ml Potassium (3.6-5.1) mmol/L Glucose (60-115) mg/dL Lactate (0.5-1.9) mmol/L Direct Bilirubin (0.0-0.5) mg/dL AST (12-35) U/L Alkaline Phosphatase (40-150) U/L Troponin I (0.01-0.04) ng/mL C-Reactive Protein (0.5-1.0) mg/dL Total Protein (6.0-8.3) g/dL Urine Protein 1+ A (Negative) Urine RBC 2-5 A (0-2) Ur Oxycodone Screen POSITIVE A* (Negative) Ethyl Alcohol (0.01-0.03) % POC Troponin I 0.19 H (0.01-0.04) ng/ml 06/09/22 06/09/22 06/09/22 Range/Units 17:56 17:56 17:56 WBC 13.77 H (4.50-11.00) K/uL RBC (4.30-5.90) m/uL Hgb (13.5-17.5) gm/dL Neut % (Auto) 88.9 H (42.0-72.0) % Lymph % (Auto) 6.7 L (20-44) % Neut # (Auto) 12.20 H (1.7-7.0) K/uL D-Dimer Quant (PE/DVT) (0.00-0.50) ug/ml Potassium (3.6-5.1) mmol/L Glucose 143 H (60-115) mg/dL Lactate 2.7 H (0.5-1.9) mmol/L Direct Bilirubin 0.6 H (0.0-0.5) mg/dL AST 65 H (12-35) U/L Alkaline Phosphatase 171 H (40-150) U/L Troponin I (0.01-0.04) ng/mL C-Reactive Protein < 0.5 L (0.5-1.0) mg/dL Total Protein 9.0 H (6.0-8.3) g/dL Urine Protein (Negative) Urine RBC (0-2) Ur Oxycodone Screen (Negative) Ethyl Alcohol < 0.01 L (0.01-0.03) % POC Troponin I (0.01-0.04) ng/ml 06/09/22 06/09/22 06/09/22 Range/Units 17:56 18:15 19:21 WBC (4.50-11.00) K/uL RBC (4.30-5.90) m/uL Hgb (13.5-17.5) gm/dL Neut % (Auto) (42.0-72.0) % Lymph % (Auto) (20-44) % Neut # (Auto) (1.7-7.0) K/uL D-Dimer Quant (PE/DVT) 2.03 H (0.00-0.50) ug/ml Potassium (3.6-5.1) mmol/L Glucose (60-115) mg/dL Lactate (0.5-1.9) mmol/L Direct Bilirubin (0.0-0.5) mg/dL AST (12-35) U/L Alkaline Phosphatase (40-150) U/L Troponin I 0.21 H* (0.01-0.04) ng/mL C-Reactive Protein (0.5-1.0) mg/dL Total Protein (6.0-8.3) g/dL Urine Protein (Negative) Urine RBC (0-2) Ur Oxycodone Screen (Negative) Ethyl Alcohol (0.01-0.03) % POC Troponin I 0.21 H (0.01-0.04) ng/ml 06/09/22 06/10/22 06/10/22 Range/Units 20:56 01:55 06:05 WBC (4.50-11.00) K/uL RBC 3.91 L (4.30-5.90) m/uL Hgb 13.0 L (13.5-17.5) gm/dL Neut % (Auto) 72.4 H (42.0-72.0) % Lymph % (Auto) 19.1 L (20-44) % Neut # (Auto) 7.20 H (1.7-7.0) K/uL D-Dimer Quant (PE/DVT) (0.00-0.50) ug/ml Potassium (3.6-5.1) mmol/L Glucose (60-115) mg/dL Lactate (0.5-1.9) mmol/L Direct Bilirubin (0.0-0.5) mg/dL AST (12-35) U/L Alkaline Phosphatase (40-150) U/L Troponin I 0.44 H* (0.01-0.04) ng/mL C-Reactive Protein (0.5-1.0) mg/dL Total Protein (6.0-8.3) g/dL Urine Protein (Negative) Urine RBC (0-2) Ur Oxycodone Screen (Negative) Ethyl Alcohol (0.01-0.03) % POC Troponin I 0.29 H (0.01-0.04) ng/ml 06/10/22 Range/Units 06:05 WBC (4.50-11.00) K/uL RBC (4.30-5.90) m/uL Hgb (13.5-17.5) gm/dL Neut % (Auto) (42.0-72.0) % Lymph % (Auto) (20-44) % Neut # (Auto) (1.7-7.0) K/uL D-Dimer Quant (PE/DVT) (0.00-0.50) ug/ml Potassium 3.4 L (3.6-5.1) mmol/L Glucose (60-115) mg/dL Lactate (0.5-1.9) mmol/L Direct Bilirubin (0.0-0.5) mg/dL AST 55 H (12-35) U/L Alkaline Phosphatase (40-150) U/L Troponin I 0.69 H* (0.01-0.04) ng/mL C-Reactive Protein (0.5-1.0) mg/dL Total Protein (6.0-8.3) g/dL Urine Protein (Negative) Urine RBC (0-2) Ur Oxycodone Screen (Negative) Ethyl Alcohol (0.01-0.03) % POC Troponin I (0.01-0.04) ng/ml Diabetes panel 06/09/22 06/10/22 06/10/22 Range/Units 17:56 06:05 06:05 Sodium 137 138 (135-149) mmol/L Potassium 3.7 3.4 L (3.6-5.1) mmol/L Chloride 103 105 (96-114) mmol/L Carbon Dioxide 21 23 (20-32) mmol/L BUN 8 9 (7-30) mg/dL Creatinine 0.9 0.9 (0.5-1.5) mg/dL Glucose 143 H 102 (60-115) mg/dL Hemoglobin A1c 5.08 (0-5.6) % Calcium 9.9 8.8 (8.4-10.6) mg/dL AST 65 H 55 H (12-35) U/L ALT 29 21 (4-50) U/L Alkaline Phosphatase 171 H 133 (40-150) U/L Total Protein 9.0 H 7.7 (6.0-8.3) g/dL Albumin 4.5 3.9 (3.3-5.0) g/dL Calcium panel 06/09/22 06/10/22 Range/Units 17:56 06:05 Calcium 9.9 8.8 (8.4-10.6) mg/dL Albumin 4.5 3.9 (3.3-5.0) g/dL Pituitary panel 06/09/22 06/10/22 Range/Units 17:56 06:05 Sodium 137 138 (135-149) mmol/L Potassium 3.7 3.4 L (3.6-5.1) mmol/L Chloride 103 105 (96-114) mmol/L Carbon Dioxide 21 23 (20-32) mmol/L BUN 8 9 (7-30) mg/dL Creatinine 0.9 0.9 (0.5-1.5) mg/dL Glucose 143 H 102 (60-115) mg/dL Calcium 9.9 8.8 (8.4-10.6) mg/dL Adrenal panel 06/09/22 06/10/22 Range/Units 17:56 06:05 Sodium 137 138 (135-149) mmol/L Potassium 3.7 3.4 L (3.6-5.1) mmol/L Chloride 103 105 (96-114) mmol/L Carbon Dioxide 21 23 (20-32) mmol/L BUN 8 9 (7-30) mg/dL Creatinine 0.9 0.9 (0.5-1.5) mg/dL Glucose 143 H 102 (60-115) mg/dL Calcium 9.9 8.8 (8.4-10.6) mg/dL Total Bilirubin 1.2 0.9 (0.1-1.5) mg/dL AST 65 H 55 H (12-35) U/L ALT 29 21 (4-50) U/L Alkaline Phosphatase 171 H 133 (40-150) U/L Total Protein 9.0 H 7.7 (6.0-8.3) g/dL Albumin 4.5 3.9 (3.3-5.0) g/dL All other labs normal. Imaging Abdomen CT scan report/results: report reviewed (Diagnostic Imaging Report Patient: Jonathan Cancino WMR#: [id number]: 1970Acct:[id number]: EDService Date: 06/09/22Attending Dr: Ordering Physician: Aryan Lunsford M.D. Date of Service: 06/09/22 Procedure(s): CT aortic dissection Accession Number(s): [id number] cc: Provider,Not a Local ) and image reviewed CT scan - chest: report reviewed and image reviewed Assessment and Plan Assessment and plan (1) Duodenitis: Status: Acute (2) Essential hypertension: Status: Acute (3) Elevated troponin: Status: Acute (4) Alcohol abuse, daily use: Status: Acute Plan The patient is a 52-year-old who presents epigastric and right upper quadrant pain with CT showing duodenitis. Hemoglobin drift slightly, however no sign of GI bleed (patient had copious vomiting yesterday without blood and has not had any bloody stools). Consider guaiac testing. I do not see record of the patient having had an endoscopy here previously. Recommend NPO, IV PPI as well as consideration for empiric treatment of H pylori.
[2022-06-10 14:50] LABS: Basophils Absolute Auto 0.05 K/uL (0.00-0.30); Basophils Percent Auto 0.6 % (0.0-3.0); Eosinophils Absolute Auto 0.12 K/uL (0.00-0.50); Eosinophils Percent Auto 1.5 % (0.0-7.0); Hematocrit 39.9 % (37.0-53.0); Hemoglobin* 13.3 gm/dL (13.5-17.5); Immature Granulocytes Abs Auto 0.01 K/uL (0.00-0.30); Lymphocytes Percent Auto 23.8 % (20-44); Mean Corpuscular HGB Conc 33 gm/dL (32-36); Mean Corpuscular Hemoglobin 33 pg (26-34); Mean Corpuscular Volume 99 fL (80-100); Monocytes Percent Auto 7.4 % (0.0-11.0); Neutrophils Absolute Auto 5.33 K/uL (1.7-7.0); Neutrophils Percent Auto 66.6 % (42.0-72.0); Platelet Count* 143 K/uL (140-440); RDW Coefficient of Variation % 12.7 % (11.5-15.5); Red Blood Count 4.02 m/uL (4.30-5.90)
[2022-06-10 14:54] LABS: Slide Review Reflex No
--- NOTE | 2022-06-10 15:00 | PC.NURSE ---
End of shift note: Patient had right upper gastric pain and a headache at the beginning of shift. These areas of pain have improved with PO tylenol and oxycodone. Patient did get 1 dose of IV morphine this morning. Patient denies shortness of breath and chest pain. Troponins have been increasing but EKGs have been normal. Patient's hemaglobin is being trended and order for GUIAC is in place. Also an order for Hpylori is in place. Unfortunately, patient has not had a BM since 06/08/22. Patient had echo this afternoon per cardiology recommendation. Patient will be NPO per General Surgery recommendation. Maybe start clears tomorrow if pain is tolerable. Denies nausea. PIVs are patent in right and left AC. Fluids running at 100/hr. Telemetry is NSR. Voiding small amounts and MD is aware of low urine output. Vital signs are within normal limits. Patient alert an oriented X3. Ambulates independently in room.
[2022-06-10 15:22] LABS: Troponin I* 0.93 ng/mL (0.01-0.04)
--- NOTE | 2022-06-10 18:47 | PC.NURSE ---
End of shift [id number]-- Pleasant and cooperative, alert and oriented patient. VSS and pt is afebrile. SpO2 maintained >90% on RA. Pt did c/o some RUQ abdominal pain this shift which he rated as high as 4-5 out of 10 and was given Morphine and stated relief. Telemetry shows Sinus bradycardia. LS CTA. BS+ x4 and pt denied any nausea this evening. He stated that he is hungry but is NPO per MD order. He was up to the BR and took a shower this evening independently and tolerated it well. Incision to left side of neck is RITA, well approximated and appears to be healing well. Report to oncoming shift.
[2022-06-10 21:22] LABS: Hemoglobin* 12.6 gm/dL (13.5-17.5)
[2022-06-10 22:07] LABS: Troponin I* 0.62 ng/mL (0.01-0.04)
[2022-06-11] VITALS (9 sets, daily range): BP systolic 131–171; BP diastolic 83–103; PULSE 54–64; RESP 16–18; TEMP 36.6–37.1; O2SAT 96–100
[2022-06-11] MEDS: ACETAMINOPHEN 325 MG TABLET 650 MG PO ×4 (02:36→20:48)
[2022-06-11] MEDS: OXYCODONE 5 MG TABLET PO ×4 (06:26→20:48)
[2022-06-11 07:21] LABS: Basophils Absolute Auto 0.04 K/uL (0.00-0.30); Basophils Percent Auto 0.5 % (0.0-3.0); Eosinophils Absolute Auto 0.13 K/uL (0.00-0.50); Eosinophils Percent Auto 1.5 % (0.0-7.0); Immature Granulocytes Abs Auto 0.01 K/uL (0.00-0.30); Lymphocytes Percent Auto 17.2 % (20-44); Mean Corpuscular HGB Conc 33 gm/dL (32-36); Mean Corpuscular Hemoglobin 33 pg (26-34); Mean Corpuscular Volume 100 fL (80-100); Neutrophils Percent Auto 74.7 % (42.0-72.0); Platelet Count* 142 K/uL (140-440); RDW Coefficient of Variation % 12.6 % (11.5-15.5); Red Blood Count 3.59 m/uL (4.30-5.90)
[2022-06-11 07:26] LABS: Slide Review Reflex No
[2022-06-11 07:31] LABS: Albumin* 3.8 g/dL (3.3-5.0); Chloride* 105 mmol/L (96-114)
[2022-06-11 07:32] LABS: Potassium* 3.6 mmol/L (3.6-5.1); Sodium* 137 mmol/L (135-149)
[2022-06-11 07:34] LABS: Aspartate Amino Transferase* 89 U/L (12-35); Bilirubin Total* 0.8 mg/dL (0.1-1.5); Blood Urea Nitrogen* 11 mg/dL (7-30); Carbon Dioxide* 21 mmol/L (20-32); Creatinine* 0.9 mg/dL (0.5-1.5); Est. Creatinine Clearance* 99.14; Estimated Glomerular Filt Rate 103 ml/min; Total Protein* 7.6 g/dL (6.0-8.3)
[2022-06-11 07:35] LABS: Alanine Aminotransferase* 27 U/L (4-50); Alkaline Phosphatase* 123 U/L (40-150); Calcium* 8.9 mg/dL (8.4-10.6); Glucose* 83 mg/dL (60-115)
--- NOTE | 2022-06-11 08:07 | PC.NURSE ---
: pt pleasant and cooperative. Walked halls x 1. indep. No BM, still need stool sample for Hpylori and guaiac test. NPO, sips and chips ok which helps satisfy pt, although he was stating he was feeling a sensation of ?being full? while PO intake is minimal. ?c/o pain in right upper quadrant, see emar. VSS. Afebrile.
[2022-06-11] MEDS: 0.9 % SODIUM CHLORIDE 1000 ml 1,000 ML 100 ML IV ×2 (08:20→19:18)
[2022-06-11] MEDS: buPROPion XL 150 MG TABLET 300 MG PO (08:49)
[2022-06-11] MEDS: CITALOPRAM HYDROBROMIDE 20 MG TABLET 10 MG PO (08:50)
[2022-06-11] MEDS: hydroCHLOROthiazide 12.5 MG CAPSULE PO (08:50)
[2022-06-11] MEDS: THIAMINE 100 MG TABLET PO (08:53)
[2022-06-11] MEDS: TAMSULOSIN HCL 0.4 MG CAPSULE PO (08:53)
[2022-06-11] MEDS: atenoloL 50 MG TABLET 100 MG PO (08:53)
[2022-06-11] MEDS: MORPHINE 4 MG/ML INJ IVP (08:54)
[2022-06-11] MEDS: PANTOPRAZOLE SODIUM 40 MG INJ IVP ×2 (08:54→20:48)
[2022-06-11] MEDS: lisinopriL 10 MG TABLET PO (08:55)
[2022-06-11] MEDS: FOLIC ACID 1 MG TABLET PO (08:55)
--- NOTE | 2022-06-11 10:57 | PM.IMPN1 ---
Progress Note: A&P Assessment and plan (1) NSTEMI (non-ST elevated myocardial infarction): Problem details: Troponin peak of 0.93. Statin added to medication regimen 06/10. Needs outpatient nuclear stress test after discharge. Final Impressions: 1. Normal LV size, normal global systolic function with an estimated EF of 55 - 60%. 2. No definite regional wall motion abnormality. 3. Right ventricular cavity size is normal, global systolic RV function is normal. 4. Mildly enlarged left atrium. 5. No significant valve disease detected. 6. The aortic sinus is normal for age/sex/bsa with a maximal diameter of 3.8 cm. Status: Acute Assessment and Plan: Patient remains asymptomatic, will need close outpatient f/u with PCP. (2) Elevated troponin: Status: Acute Assessment and Plan: per above (3) Duodenitis: Problem details: On IV PPI. Status: Acute Assessment and Plan: Hgb has trended downward from 14.7-->12. Normal BUN, no evidence of acute bleeding. Has not yet stooled for guaiac testing. (4) Essential hypertension: Status: Acute Assessment and Plan: Age appropriate control on home medications. (5) Alcohol abuse, daily use: Status: Acute Assessment and Plan: No concern for withdrawal. Plan 52 yo male, admitted for duodenitis in the setting of epigastric abdominal pain. Also found to have elevated troponin, peak at 0.93. - Advance diet today to clears. - Appreciate input from General Surgery. - Reassuring bedside TTE 06/10. Needs nuclear stress test as an outpatient, and close outpatient f/u. - SCDs for ppx, hold pharmacologic anticoagulation given duodenitis. Time Spent With Patient Total time spent: 35, >50% in chart review, coordination of care, phone update to . Subjective Date Seen: 06/11/22 Interval history: Jonathan feels better today, ready to advance diet. No CP or dyspnea. Reassuring TTE. Dr. Lopes of General Surgery also following. Exam Narrative: Exam Narrative: GEN: Alert and oriented, sitting comfortably in bed, answering questions appropriately HEENT: Normal external ears, EOMIs bilaterally, no scleral icterus CV: RRR, No concerning murmurs, rubs, or gallops R: LCTA bilaterally without concerning wheezing, rales, or rhonchi Abdomen: Soft, mild tenderness to palpation but improving. No distension Ext: wwp, no concerning edema Skin: No concerning skin lesions or rashes on exposed skin Neuro: Nonfocal Psych: Appropriate Const: Vital Signs, click to edit/add: Vital Signs - 24 hr 06/10/22 11:37 06/10/22 15:00 06/10/22 15:00 Temperature 97.9 F 97.8 F Pulse Rate 53 L Pulse Rate [Right Pulse Oximeter] 55 L 55 L Respiratory Rate 16 18 Blood Pressure [Ri ght Arm] 117/80 126/82 Pulse Oximetry 99 99 Oxygen Delivery Me thod Room Air Room Air 06/10/22 15:00 06/10/22 19:00 06/10/22 22:46 Temperature 97.9 F Pulse Rate 52 L Pulse Rate [Right Pulse Oximeter] 55 L 55 L Respiratory Rate 18 18 Blood Pressure [Ri ght Arm] 148/90 H Pulse Oximetry 97 Oxygen Delivery Me thod Room Air 06/10/22 22:56 06/10/22 22:58 06/10/22 22:58 Temperature 97.8 F 97.8 F Pulse Rate Pulse Rate [Right Pulse Oximeter] 55 L 55 L 55 L Respiratory Rate 18 18 18 Blood Pressure [Ri ght Arm] 136/85 136/85 Pulse Oximetry 98 98 Oxygen Delivery Me thod Room Air Room Air 06/11/22 02:36 06/11/22 03:00 06/11/22 03:00 Temperature 97.8 F 98.2 F 98.2 F Pulse Rate Pulse Rate [Right Pulse Oximeter] 63 63 Respiratory Rate 18 18 Blood Pressure [Ri ght Arm] 131/83 131/83 Pulse Oximetry 96 96 Oxygen Delivery Wa thod Room Air Room Air 06/11/22 07:00 Temperature 98.1 F Pulse Rate Pulse Rate [Right Pulse Oximeter] 64 Respiratory Rate 16 Blood Pressure [Ri ght Arm] 153/92 H Pulse Oximetry 98 Oxygen Delivery Me thod Room Air Labs Labs: Laboratory Results - last 24 hr 06/10/22 06/10/22 06/10/22 14:38 14:38 21:09 WBC 8.00 RBC 4.02 L Hgb 13.3 L 12.6 L Hct 39.9 MCV 99 MCH 33 MCHC 33 RDW Coeff of [place] 12.7 Plt Count 143 Neut % (Auto) 66.6 Lymph % (Auto) 23.8 [place] % (Auto) 7.4 Eos % (Auto) 1.5 Baso % (Auto) 0.6 Neut # (Auto) 5.33 Lymph # (Auto) 1.90 [place] # (Auto) 0.60 Eos # (Auto) 0.12 Baso # (Auto) 0.05 Abs Immat Gran (auto) 0.01 Sodium Potassium Chloride Carbon Dioxide BUN Creatinine Estimated Creat Clear Estimated GFR Glucose Calcium Total Bilirubin AST ALT Alkaline Phosphatase Troponin I 0.93 H* Total Protein Albumin 06/10/22 06/11/22 06/11/22 21:09 06:25 06:25 WBC 8.50 RBC 3.59 L Hgb 12.0 L Hct 36.0 L MCV 100 MCH 33 MCHC 33 RDW Coeff of [place] 12.6 Plt Count 142 Neut % (Auto) 74.7 H Lymph % (Auto) 17.2 L [place] % (Auto) 6.0 Eos % (Auto) 1.5 Baso % (Auto) 0.5 Neut # (Auto) 6.30 Lymph # (Auto) 1.50 [place] # (Auto) 0.50 Eos # (Auto) 0.13 Baso # (Auto) 0.04 Abs Immat Gran (auto) 0.01 Sodium 137 Potassium 3.6 Chloride 105 Carbon Dioxide 21 BUN 11 Creatinine 0.9 Estimated Creat Clear 99.14 Estimated GFR 103 Glucose 83 Calcium 8.9 Total Bilirubin 0.8 AST 89 H ALT 27 Alkaline Phosphatase 123 Troponin I 0.62 H* 0.40 H* Total Protein 7.6 Albumin 3.8
[2022-06-11] MEDS: ROSUVASTATIN CALCIUM 10 MG TABLET PO (11:50)
[2022-06-11 17:57] LABS: H pylori Ag Stool* Negative (Negative)
--- NOTE | 2022-06-11 19:55 | PC.NURSE ---
: Pt. up indep. in room/halls this shift. RUQ pain rated 1-4/10, alleviated w/oxycodone. CIWAs negative. Good urine output this shift, pt. also had 200cc brown diarrhea w/few small chunks this afternoon. Stool sample sent to lab to check for H.pylori, and guiac negative x1. Requested pt. call staff if has another BM; he agreed. Tolerated advancing to clear liquid diet w/out additional symptoms. Mild full feeling, but subsided. Left AC IV removed d/t leaking. Troponin trending down to 0.40 this morning. Tele reading sinus aamir to normal sinus. Report given to TABITHA Quiroz. IVF running @ 100/hr.
[2022-06-12] VITALS (12 sets, daily range): BP systolic 151–183; BP diastolic 90–99; PULSE 53–64; RESP 16–20; TEMP 36.2–36.8; O2SAT 93–99
[2022-06-12] MEDS: OXYCODONE 5 MG TABLET PO ×5 (01:00→19:54)
[2022-06-12] MEDS: ACETAMINOPHEN 325 MG TABLET 650 MG PO ×5 (01:00→19:54)
[2022-06-12] MEDS: MAG HYDROX/ALUMINUM HYD/SIMETH 30 ML ORAL.SUSP 15 ML PO (01:01)
[2022-06-12] MEDS: 0.9 % SODIUM CHLORIDE 1000 ml 1,000 ML 100 ML IV ×2 (05:01→16:28)
--- NOTE | 2022-06-12 06:49 | PC.NURSE ---
Shift Note -: Pt vitals remain elevated BP, bradycardic HR, CIWAs have been ranging from 0-2. PIV in R AC is patent and asymptomatic with NS running at 100mL. Pt had 2 loose stools in the evening, negative GUIAC. Tele shows NSR with episodes of sinus aamir. Pt continued to c/o pain in right upper quadrant, just under the ribs. Pt consistently rated pain 4/10 prior to medication and 3/10 post medication administration. Pt requested to advance diet to regular for breakfast stating that he was hungry. Pt education provided on disease process and contraindications with abdominal pain. Pt was advised to discuss with MD in AM. Pt requested to shower at 0100. Tele was removed fo20 min while Pt showered, then was replaced. see eMAR for medication administration.
[2022-06-12 07:00] LABS: Basophils Absolute Auto 0.02 K/uL (0.00-0.30); Basophils Percent Auto 0.3 % (0.0-3.0); Eosinophils Absolute Auto 0.18 K/uL (0.00-0.50); Eosinophils Percent Auto 2.5 % (0.0-7.0); Hematocrit 33.6 % (37.0-53.0); Hemoglobin* 11.3 gm/dL (13.5-17.5); Immature Granulocytes Abs Auto 0.02 K/uL (0.00-0.30); Lymphocytes Absolute Auto 1.66 K/uL (0.90-2.90); Lymphocytes Percent Auto 23.1 % (20-44); Mean Corpuscular HGB Conc 34 gm/dL (32-36); Mean Corpuscular Hemoglobin 33 pg (26-34); Mean Corpuscular Volume 99 fL (80-100); Monocytes Percent Auto 7.2 % (0.0-11.0); Neutrophils Absolute Auto 4.78 K/uL (1.7-7.0); Neutrophils Percent Auto 66.6 % (42.0-72.0); Platelet Count* 117 K/uL (140-440); RDW Coefficient of Variation % 12.3 % (11.5-15.5); Red Blood Count 3.39 m/uL (4.30-5.90); White Blood Count* 7.18 K/uL (4.50-11.00)
[2022-06-12 07:08] LABS: Slide Review Reflex No
[2022-06-12 07:16] LABS: Chloride* 104 mmol/L (96-114); Potassium* 3.5 mmol/L (3.6-5.1); Sodium* 135 mmol/L (135-149)
[2022-06-12 07:19] LABS: Carbon Dioxide* 22 mmol/L (20-32); Creatinine* 0.8 mg/dL (0.5-1.5); Est. Creatinine Clearance* 111.53; Estimated Glomerular Filt Rate 106 ml/min
[2022-06-12 07:20] LABS: Blood Urea Nitrogen* 8 mg/dL (7-30); Calcium* 8.5 mg/dL (8.4-10.6); Glucose* 81 mg/dL (60-115)
[2022-06-12] MEDS: buPROPion XL 150 MG TABLET 300 MG PO (09:39)
[2022-06-12] MEDS: atenoloL 50 MG TABLET 100 MG PO (09:39)
[2022-06-12] MEDS: lisinopriL 10 MG TABLET PO (09:40)
[2022-06-12] MEDS: TAMSULOSIN HCL 0.4 MG CAPSULE PO (09:41)
[2022-06-12] MEDS: FOLIC ACID 1 MG TABLET PO (09:41)
[2022-06-12] MEDS: hydroCHLOROthiazide 12.5 MG CAPSULE PO (09:42)
[2022-06-12] MEDS: CITALOPRAM HYDROBROMIDE 20 MG TABLET 10 MG PO (09:42)
[2022-06-12] MEDS: ROSUVASTATIN CALCIUM 10 MG TABLET PO (09:43)
[2022-06-12] MEDS: PANTOPRAZOLE SODIUM 40 MG INJ IVP ×2 (09:44→19:55)
[2022-06-12] MEDS: THIAMINE 100 MG TABLET PO (09:44)
[2022-06-12] MEDS: LORazepam 2 MG/ML inj IVP (12:11)
[2022-06-12] MEDS: PHENobarbitaL 260 MG in 0.9 % SODIUM CHLORIDE 100 ml 100 ML 208 MG IVPB (13:00)
--- NOTE | 2022-06-12 17:00 | P.IMPN_ITS ---
Progress Note: A&P Assessment and plan (1) Duodenitis: Problem details: On IV PPI. Status: Acute Assessment and Plan: 1. Advanced diet from clear liquids to full liquids as tolerated. (2) Elevated troponin: Status: Acute (3) NSTEMI (non-ST elevated myocardial infarction): Problem details: Troponin peak of 0.93. Statin added to medication regimen 06/10. Needs outpatient nuclear stress test after discharge. Final Impressions: 1. Normal LV size, normal global systolic function with an estimated EF of 55 - 60%. 2. No definite regional wall motion abnormality. 3. Right ventricular cavity size is normal, global systolic RV function is normal. 4. Mildly enlarged left atrium. 5. No significant valve disease detected. 6. The aortic sinus is normal for age/sex/bsa with a maximal diameter of 3.8 cm. Status: Acute Assessment and Plan: 1. Asymptomatic. Continue with above stated plans. (4) Essential hypertension: Status: Acute Assessment and Plan: 1. Continue with supportive efforts. (5) Alcoholism: Status: Acute Assessment and Plan: 1. Discuss this with him. Emphasize to him that his body is speaking loudly and clearly that it is not able to continue to tolerate the alcohol exposure that it has had of recent. He tells me that he ordinarily drinks 6-8 light beers per day. He is contemplative about long-term abstinence and chemical dependency treatment. (6) Alcohol withdrawal: Status: Acute Assessment and Plan: 1. CIWA driven protocol with lorazepam. 2. Single dose of phenobarbital 260 mg IV. (7) Alcohol abuse, daily use: Status: Acute Plan 1. Reviewed my impressions and plans with patient as stated above. 2. Answered his questions to satisfaction Time Spent With Patient Total time spent: 30 minutes Subjective Time Seen by Provider: 11:00 Date Seen: 06/12/22 Interval history: 52-year-old man presents with epigastric pain and on assessment is found to have severe duodenitis. Now tolerating clear liquids. Pain still present but much less problematic than previously. Denies any chest heaviness, pressure, tightness, or pain. Denies syncope or near-syncope. Denies palpitations or fluttering. Denies cough, dyspnea at rest, dyspnea with exertion, paroxysmal nocturnal dyspnea, or orthopnea. Denies nausea or vomiting. Tells me that he is hungry now. Acknowledges feeling somewhat shaky. Exam Narrative: Exam Narrative: No acute distress. Mildly diaphoretic and tremulous. Rhinophyma. No icterus or jaundice. Scattered telangiectasias of skin. Lungs clear to auscultation. Heart tones with regular rhythm. Abdomen with active bowel sounds, soft. Mild distention. Extremities without edema. No focal motor neurologic deficits. Mild tremor. Const: Vital Signs, click to edit/add: Vital Signs - 24 hr 06/11/22 19:00 06/11/22 23:00 06/11/22 23:00 Temperature 98.7 F Pulse Rate Pulse Rate [Right Pulse Oximeter] 54 L 54 L Respiratory Rate 16 16 16 Blood Pressure [Ri ght Arm] 156/97 H Pulse Oximetry 96 Oxygen Delivery Me thod Room Air 06/11/22 23:00 06/12/22 03:00 06/11/22 23:00 Temperature 97.9 F 98.3 F Pulse Rate 62 Pulse Rate [Right Pulse Oximeter] 57 L 59 L Respiratory Rate 16 16 Blood Pressure [Ri ght Arm] 171/103 H 160/96 H Pulse Oximetry 100 95 Oxygen Delivery Me thod Room Air Room Air 06/12/22 08:01 06/12/22 09:28 06/12/22 09:28 Temperature 97.9 F Pulse Rate Pulse Rate [Right Pulse Oximeter] 54 L 63 63 Respiratory Rate 16 18 18 Blood Pressure [Ri ght Arm] 170/98 H Pulse Oximetry 97 Oxygen Delivery Me thod Room Air 06/12/22 09:25 06/12/22 07:00 06/12/22 11:00 Temperature 97.9 F 98.2 F Pulse Rate 55 L Pulse Rate [Right Pulse Oximeter] 63 60 Respiratory Rate 18 18 Blood Pressure [Ri ght Arm] 170/98 H 151/96 H Pulse Oximetry 97 97 Oxygen Delivery Me thod Room Air Room Air 06/12/22 13:05 06/12/22 14:35 06/12/22 16:22 Temperature 98 F 98.2 F 97.2 F L Pulse Rate Pulse Rate [Right Pulse Oximeter] 61 64 56 L Respiratory Rate 20 20 20 Blood Pressure [Ri ght Arm] 151/94 H 183/98 H 156/90 H Pulse Oximetry 97 93 98 Oxygen Delivery Me thod Room Air Room Air Room Air Documenting provider has reviewed patient's vital signs: yes Labs Labs: Laboratory Results - last 24 hr 06/11/22 06/12/22 06/12/22 17:01 06:23 06:23 WBC 7.18 RBC 3.39 L Hgb 11.3 L Hct 33.6 L MCV 99 MCH 33 MCHC 34 RDW Coeff of Juaquin 12.3 Plt Count 117 L Neut % (Auto) 66.6 Lymph % (Auto) 23.1 Moore % (Auto) 7.2 Eos % (Auto) 2.5 Baso % (Auto) 0.3 Neut # (Auto) 4.78 Lymph # (Auto) 1.66 Moore # (Auto) 0.50 Eos # (Auto) 0.18 Baso # (Auto) 0.02 Abs Immat Gran (auto) 0.02 Sodium 135 Potassium 3.5 L Chloride 104 Carbon Dioxide 22 BUN 8 Creatinine 0.8 Estimated Creat Clear 111.53 Estimated GFR 106 Glucose 81 Calcium 8.5 Stool H. pylori Ag Negative
[2022-06-12 20:10] LABS: C.Difficile Negative (Negative); CDIFFEPI 027 PRESUMPTIVE NEGATIVE (Negative)
--- NOTE | 2022-06-12 20:19 | PC.NURSE ---
0: Noted from overnight staff pt. slept very little. Pt. up indep. in room and walking in halls. Tele sinus aamir to NSR, denies chest pain or pressure. Pain consistently rated 3-4/10 in URQ, alleviated w/PRN medication. Bowel sounds hypo to active x4. CIWA scores 0-11 throughout day, symptoms alleviated w/ativan IV x1. Pt. slept for a few hours after this. Clear liquids causing increased fullness in belly, educated on need to back off on fluids if this causes discomfort. Pt. agreeable and has been walking more. 4 loose stools, all guiac checks negative. Stool sample sent to lab, returned negative for C-diff. Received phenobarbital IV this morning per orders.
[2022-06-13] VITALS (11 sets, daily range): BP systolic 120–175; BP diastolic 75–105; PULSE 56–68; RESP 16–20; TEMP 36.6–36.8; O2SAT 94–99
[2022-06-13] MEDS: LORazepam 1 MG TABLET PO (01:06)
[2022-06-13] MEDS: OXYCODONE 5 MG TABLET PO ×4 (01:07→21:24)
[2022-06-13] MEDS: ACETAMINOPHEN 325 MG TABLET 650 MG PO ×4 (01:07→21:24)
[2022-06-13] MEDS: 0.9 % SODIUM CHLORIDE 1000 ml 1,000 ML 100 ML IV (01:08)
--- NOTE | 2022-06-13 05:48 | PC.NURSE ---
Shift Note : Pt pleasant and cooperative, BP remains elevated @ 164/93, 159/101, 161/96. Other VSS and afebrile. Discussed pain scale and provided written information on rating pain. Pt stated that he may have been rating his pain incorrectly since admission and says that his abdominal pain is 4-5/10 rather than 3-4/10. CIWA score of 9 @ 0000 scoring for Ativan, 1mg administered, Pt able to fall asleep for about 90 min, then awake again. Tele shows sinus aamir, C-Diff neg. Pt weight is up 4lbs since admission, Pt reports feeling like his abdomen is puffy
[2022-06-13 07:16] LABS: Hematocrit 34.9 % (37.0-53.0); Mean Corpuscular HGB Conc 34 gm/dL (32-36); Mean Corpuscular Hemoglobin 33 pg (26-34); Mean Corpuscular Volume 97 fL (80-100); Platelet Count* 119 K/uL (140-440); Red Blood Count 3.61 m/uL (4.30-5.90); White Blood Count* 6.87 K/uL (4.50-11.00)
[2022-06-13 07:18] LABS: Slide Review Reflex No
[2022-06-13 07:29] LABS: Potassium* 3.2 mmol/L (3.6-5.1)
[2022-06-13 07:39] LABS: INR 1.12 (0.91-1.10); Prothrombin Time 14.8 Seconds
[2022-06-13] MEDS: POTASSIUM BICARB 25 MEQ EFFERVESCENT TAB PO ×3 (08:37→15:50)
[2022-06-13] MEDS: atenoloL 50 MG TABLET 100 MG PO (08:38)
[2022-06-13] MEDS: buPROPion XL 150 MG TABLET 300 MG PO (08:39)
[2022-06-13] MEDS: CITALOPRAM HYDROBROMIDE 20 MG TABLET 10 MG PO (08:39)
[2022-06-13] MEDS: ROSUVASTATIN CALCIUM 10 MG TABLET PO (08:39)
[2022-06-13] MEDS: hydroCHLOROthiazide 12.5 MG CAPSULE PO (08:40)
[2022-06-13] MEDS: FOLIC ACID 1 MG TABLET PO (08:41)
[2022-06-13] MEDS: TAMSULOSIN HCL 0.4 MG CAPSULE PO (08:42)
[2022-06-13] MEDS: lisinopriL 10 MG TABLET PO (08:42)
[2022-06-13] MEDS: PANTOPRAZOLE SODIUM 40 MG INJ IVP ×2 (08:43→21:25)
[2022-06-13] MEDS: THIAMINE 100 MG TABLET PO (08:43)
--- NOTE | 2022-06-13 11:19 | PC.NURSE ---
0700 shift: Pt. woken for vitals this AM. Rating abd. pain in RUQ and RLQ 6/10 per FLACC scale at bedside, more so w/palpation, rebound tenderness. Denied nausea or chest pain. No stool since overnight. Walking in halls regularly, saline locked d/t high urine output and feeling puffy, per patient. Denied incr. pain/nausea after eating (oatmeal, pudding, coffee). 2 of 3 oral potassium supplements administered. Pt. reported increased pain after 100cc liquid bowel movement, and now RUQ, RLQ and epigastric region. Updated MD. DAVID ordered, pt. updated; NPO at ths time. Aqua K given for relief earlier today as well as PRN medication. Notes headache (chronic) also worse this AM during initial assessment. Blood pressures have been elevated past 24 hours, now 122/77. 1025cc urine output so far since 0600.
--- NOTE | 2022-06-13 11:28 | CRLHL7_ITS ---
For Patients: As a result of the Cures Act, medical imaging exams and procedure reports are released immediately into your electronic medical record. You may view this report before your referring provider. If you have questions, please contact your health care provider. INDICATION: Epigastric pain. COMPARISON: June 09, 2020. TECHNIQUE: Two views, 4 radiographs of the abdomen. FINDINGS: Lung bases clear. No evidence of free air on upright films. Nonobstructive bowel-gas pattern. No acute osseous abnormality. IMPRESSION: Nonobstructive bowel gas pattern. Dictated by Abdelrahman Suero MD @ 06/13/2022 12:23:38 PM (Electronically Signed)
--- NOTE | 2022-06-13 11:43 | PC.NURSE ---
Addendum entered by Melissa Young RN 06/13/22 20:29: Frequent walking in halls today, 4-5 times, tolerating well. Guarding and rebound tenderness noted across abdomen. Updated Dr. Simms about poor sleep past 48 hours. PRN ambien ordered. Addendum entered by Melissa Young RN 06/13/22 17:21: Per Dr. Hein, pt returned to clear liquids. Saw pt. after this, who was visibly upset, but appropriate. Expressed frustration about backsliding. Discussed whether pt. would like RN to call and update his spouse, which he said he would think about, noting a disagreement over the phone. No need for ativan per CIWA scores. Pain diffuse across abdomen, rated 5-8/10, alleviated w/PRN meds and Aqua K pad. Addendum entered by Melissa Young RN 06/13/22 14:10: Pt. returned from radiology w/out issue. Still awaiting okay from MD to resume current diet or keep NPO status. Pt. noting more diffuse pain in abdomen. Original Note: Patient to radiology.
--- NOTE | 2022-06-13 15:39 | P.IMPN_ITS ---
Progress Note: A&P Assessment and plan (1) Duodenitis: Problem details: On IV PPI. Status: Acute Assessment and Plan: 1. Still has relatively significant discomfort. This discomfort was worsened wi th attempt to increase diet to full liquids. Will resume clear liquids today and reassess tomorrow. (2) Elevated troponin: Status: Acute Assessment and Plan: 1. Trending downward. Will reassess. (3) NSTEMI (non-ST elevated myocardial infarction): Problem details: Troponin peak of 0.93. Statin added to medication regimen 06/10. Needs outpatient nuclear stress test after discharge. Final Impressions: 1. Normal LV size, normal global systolic function with an estimated EF of 55 - 60%. 2. No definite regional wall motion abnormality. 3. Right ventricular cavity size is normal, global systolic RV function is no rmal. 4. Mildly enlarged left atrium. 5. No significant valve disease detected. 6. The aortic sinus is normal for age/sex/bsa with a maximal diameter of 3.8 cm. Status: Acute (4) Essential hypertension: Status: Acute Assessment and Plan: 1. Will stop the hydrochlorothiazide portion of his anti hypertensive regimen given his persistent hypokalemia. 2. Will check magnesium level. (5) Alcoholism: Status: Acute (6) Alcohol withdrawal: Status: Acute Assessment and Plan: 1. Appears to no longer be actively withdrawing from alcohol at this time. (7) Alcohol abuse, daily use: Status: Acute Plan 1. Reviewed my impression with patient and answered his questions. 2. Reviewed my recommendations with the patient, answered his questions, he is agreeable. Time Spent With Patient Total time spent: 40 minutes over the course of the day Subjective Time Seen by Provider: 09:00 Date Seen: 06/13/22 Interval history: Hospital day 4. 52-year-old man who presented with severe epigastric pain and on assessment is f ound to have severe duodenitis. Now tolerating clear liquids. Attempted to advance to full liquids and had recurrence of severe epigastric pain. Has been NPO since 9:00 a.m. this morning until 3:00 this afternoon in the epigastric discomfort is again improved. Has not had any blood loss of any sort. Has not had any nausea vomiting. Denies any chest heaviness, pressure, tightness, or pain. Denies syncope or near-syncope. Denies palpitations or fluttering. Denies cough, dyspnea at rest, dyspnea with exertion, paroxysmal nocturnal dyspnea, or orthopnea. No longer feeling feeling shaky or tremulous as he was yesterday. Tolerating increased activities. Denies orthostasis. Denies lightheadedness. Exam Narrative: Exam Narrative: When I assessed him he does not appear to be in any distress. He appears comfortable. In fact he is sound asleep and I arouse and by touching him and calling his name. He arouses easily. Alert, oriented to self, place, time, situation. Articulate, friendly, cooperative. Mood and affect are congruent. Neck is supple. Midline trachea. No JVD, hepatojugular reflux, or carotid bruits. Lungs clear to auscultation without wheezing, rhonchi, or rales. Heart tones with regular rhythm, normal S1-S2. Abdomen with active bowel sounds. Subjective discomfort to palpation without rebound or guarding. Independent in transfer, station, and gait. Extremities without edema. Capillary refill less than 3 seconds in the periphery. Const: Vital Signs, click to edit/add: Vital Signs - 24 hr 06/12/22 16:22 06/12/22 19:00 06/13/22 00:59 Temperature 97.2 F L 98.3 F 97.9 F Pulse Rate Pulse Rate [Right Pulse Oximeter] 56 L 55 L 63 Respiratory Rate 20 16 16 Blood Pressure [Ri ght Arm] 156/90 H 160/99 H 164/93 H Pulse Oximetry 98 97 99 Oxygen Delivery Me thod Room Air Room Air Room Air 06/13/22 02:15 06/12/22 23:00 06/12/22 23:00 Temperature Pulse Rate 54 L Pulse Rate [Right Pulse Oximeter] 61 54 L Respiratory Rate 18 18 Blood Pressure [Ri ght Arm] Pulse Oximetry Oxygen Delivery Me thod 06/12/22 23:00 06/13/22 03:15 06/13/22 03:00 Temperature 97.9 F 98.2 F 98.2 F Pulse Rate Pulse Rate [Right Pulse Oximeter] 63 64 64 Respiratory Rate 16 18 18 Blood Pressure [Ri ght Arm] 164/93 H 159/101 H 159/101 H Pulse Oximetry 99 97 97 Oxygen Delivery Me thod Room Air Room Air Room Air 06/13/22 04:00 06/13/22 08:00 06/13/22 08:00 Temperature 98.2 F Pulse Rate 63 Pulse Rate [Right Pulse Oximeter] 68 Respiratory Rate 16 19 Blood Pressure [Ri ght Arm] 161/96 H Pulse Oximetry 94 Oxygen Delivery Me thod Room Air 06/13/22 08:00 06/13/22 11:05 06/13/22 15:00 Temperature 98.1 F 97.8 F Pulse Rate Pulse Rate [Right Pulse Oximeter] 60 62 63 Respiratory Rate 19 20 20 Blood Pressure [Ri ght Arm] 175/101 H 122/77 Pulse Oximetry 97 99 Oxygen Delivery Me thod Room Air Room Air Labs Labs: Laboratory Results - last 24 hr 06/12/22 06/13/22 06/13/22 18:50 06:41 06:41 WBC 6.87 RBC 3.61 L Hgb 12.0 L Hct 34.9 L MCV 97 MCH 33 MCHC 34 Plt Count 119 L INR 1.12 H Potassium Stl C.difficile Tox PCR Negative St C. diff Tox Epid 027 PRESUMPTIVE NEGATIVE 06/13/22 06:41 WBC RBC Hgb Hct MCV MCH MCHC Plt Count INR Potassium 3.2 L Stl C.difficile Tox PCR St C. diff Tox Epid 027 Imaging Abdominal x-ray: Attestation: I have reviewed the pertinent imaging results. Radiologist's impression: No free air in the abdomen.
[2022-06-13 15:52] LABS: Magnesium* 1.4 mg/dL (1.5-2.6)
[2022-06-13] MEDS: LACTOBACILLUS ACIDOPHILUS 1 TABLET 2 TAB PO (18:04)
[2022-06-13] MEDS: ZOLPIDEM 5 MG TABLET PO (21:24)
[2022-06-13] MEDS: SODIUM CHLORIDE 0.9 % (FLUSH) 10 ML SYRINGE 5 ML IVF (21:26)
[2022-06-14] VITALS (7 sets, daily range): BP systolic 119–168; BP diastolic 73–99; PULSE 56–98; RESP 16–18; TEMP 36.7–36.9; O2SAT 92–99
[2022-06-14] MEDS: ACETAMINOPHEN 325 MG TABLET 650 MG PO ×2 (02:42→14:28)
[2022-06-14] MEDS: OXYCODONE 5 MG TABLET PO ×4 (02:42→20:50)
--- NOTE | 2022-06-14 06:25 | PC.NURSE ---
Shift Note -: Pt pleasant and cooperative, VSS with continued elevated BP, tele shows NSR, BS active in all quads, no episode of loose stool. Pt continues to rate abd pain 5-6/10, but reports pain tolerable. Pt seemed in a low mood this shift. Ambien started at HS PRN for better sleep. Pt able to sleep most of the night waking for BRP only. CIWAs remained below intervention threshold.
[2022-06-14 07:22] LABS: Potassium* 3.5 mmol/L (3.6-5.1)
[2022-06-14 07:28] LABS: C Reactive Protein* 1.9 mg/dL (0.5-1.0)
[2022-06-14 07:35] LABS: Troponin I* 0.05 ng/mL (0.01-0.04)
[2022-06-14] MEDS: MORPHINE 4 MG/ML INJ IVP (08:32)
[2022-06-14] MEDS: PANTOPRAZOLE SODIUM 40 MG INJ IVP ×2 (08:33→20:50)
[2022-06-14] MEDS: buPROPion XL 150 MG TABLET 300 MG PO (08:33)
[2022-06-14] MEDS: CITALOPRAM HYDROBROMIDE 20 MG TABLET 10 MG PO (08:33)
[2022-06-14] MEDS: FOLIC ACID 1 MG TABLET PO (08:34)
[2022-06-14] MEDS: TAMSULOSIN HCL 0.4 MG CAPSULE PO ×2 (08:34→08:35)
[2022-06-14] MEDS: atenoloL 50 MG TABLET 100 MG PO (08:34)
[2022-06-14] MEDS: lisinopriL 10 MG TABLET PO (08:34)
[2022-06-14] MEDS: LACTOBACILLUS ACIDOPHILUS 1 TABLET 2 TAB PO ×3 (08:34→17:54)
[2022-06-14] MEDS: ROSUVASTATIN CALCIUM 10 MG TABLET PO (08:34)
[2022-06-14] MEDS: THIAMINE 100 MG TABLET PO (08:34)
[2022-06-14] MEDS: SODIUM CHLORIDE 0.9 % (FLUSH) 10 ML SYRINGE 5 ML IVF ×2 (08:35→20:50)
--- NOTE | 2022-06-14 09:16 | PC.NURSE ---
Inspector And Mender received call from ED regarding patient's MIR scan tomorrow 06/15/22 at 0900. Pt will be picked up for this. Pt is to be NPO 3H prior to exam. Gown is ok. HOLD ANY BETA BLOCKERS AND CAFFEINE 24H PRIOR TO SCAN.
--- NOTE | 2022-06-14 15:38 | PM.IMPN1 ---
Progress Note: A&P Assessment and plan (1) Duodenitis: Problem details: On IV PPI. Status: Acute Assessment and Plan: 1. Finally pain is much better controlled. 2. Tolerating increased diet with full liquids at this juncture. 3. Continue with full liquid diet for today. 4. [facility] to consult with him tomorrow in regard to a possible home diet recommendation. (2) Elevated troponin: Status: Acute (3) NSTEMI (non-ST elevated myocardial infarction): Problem details: Troponin peak of 0.93. Statin added to medication regimen 06/10. Needs outpatient nuclear stress test. Final Impressions: 1. Normal LV size, normal global systolic function with an estimated EF of 55 - 60%. 2. No definite regional wall motion abnormality. 3. Right ventricular cavity size is normal, global systolic RV function is normal. 4. Mildly enlarged left atrium. 5. No significant valve disease detected. 6. The aortic sinus is normal for age/sex/bsa with a maximal diameter of 3.8 cm. Status: Acute Assessment and Plan: 1. Patient is set up for a.m. nuclear stress test tomorrow. (4) Essential hypertension: Status: Acute Assessment and Plan: 1. Consider adding spironolactone. 2. For now continue to monitor. (5) Alcoholism: Status: Acute Assessment and Plan: 1. I have asked our social studies department chair staff to visit with him about recommendations for alcoholism assessment and treatment. (6) Alcohol withdrawal: Status: Acute Assessment and Plan: 1. No longer going through withdrawals. (7) Alcohol abuse, daily use: Status: Acute Plan 1. Patient agreeable to above stated plans and recommendations. 2. Answered patient's questions to satisfaction. Time Spent With Patient Total time spent: 30 minutes Subjective Time Seen by Provider: 10:00 Date Seen: 06/14/22 Interval history: Hospital day 5. 52-year-old man who presented with severe epigastric pain and on assessment is found to have severe duodenitis. We advanced his diet to full liquids today. He is tolerating this. Denies worsening of abdominal pain with this. Has not had any nausea vomiting. Denies any chest heaviness, pressure, tightness, or pain. Denies syncope or near-syncope. Denies palpitations or fluttering. Denies cough, dyspnea at rest, dyspnea with exertion, paroxysmal nocturnal dyspnea, or orthopnea. No longer feeling feeling shaky or tremulous as he was yesterday. Tolerating increased activities. Denies orthostasis. Denies lightheadedness. Bowel and bladder function are satisfactory. Denies blood loss of any sort. Patient volunteers that his is asking for a divorce. He tells me he has not had a job for 2 years because of a work related injury he sustained 2 years ago. He tells me that it is difficult for him to continue to carry on. Denies suicidal or homicidal thoughts or ideations. He tells me he wants to carry on and work through this. Exam Narrative: Exam Narrative: No acute distress. Appears comfortable when I visit with him. Alert, oriented to self, place, time, situation. Articulate, cooperative, friendly. Mood and affect are congruent. Lungs are clear to auscultation. Heart tones with regular rhythm. Abdomen with active bowel sounds, soft, nontender. Extremities without edema. Independent transfer, station, and gait. No tremor, asterixis or ataxia. Skin is warm, dry, intact. Const: Vital Signs, click to edit/add: Vital Signs - 24 hr 06/13/22 15:45 06/13/22 15:45 06/13/22 19:00 Temperature 98.1 F 98.2 F Pulse Rate 59 L Pulse Rate [Right Pulse Oximeter] 57 L 65 Respiratory Rate 20 18 Blood Pressure [Ri ght Arm] 162/101 H 163/105 H Pulse Oximetry 99 97 Oxygen Delivery Me thod Room Air Room Air 06/13/22 23:00 06/13/22 23:00 06/13/22 23:00 Temperature Pulse Rate 56 L Pulse Rate [Right Pulse Oximeter] 66 66 Respiratory Rate 18 18 Blood Pressure [Ri ght Arm] 120/75 Pulse Oximetry 96 Oxygen Delivery Me thod Room Air 06/14/22 03:02 06/14/22 03:05 06/14/22 07:00 Temperature 98.4 F 98.4 F 98.1 F Pulse Rate Pulse Rate [Right Pulse Oximeter] 58 L 58 L 67 Respiratory Rate 16 16 16 Blood Pressure [Ri ght Arm] 161/99 H 161/99 H 155/84 H Pulse Oximetry 97 97 94 Oxygen Delivery Me thod Room Air Room Air Room Air 06/14/22 07:00 06/14/22 07:00 06/14/22 11:00 Temperature 98.1 F Pulse Rate 58 L Pulse Rate [Right Pulse Oximeter] 67 98 Respiratory Rate 18 18 Blood Pressure [Ri ght Arm] 160/92 H Pulse Oximetry 92 Oxygen Delivery Me thod Room Air Documenting provider has reviewed patient's vital signs: yes Labs Labs: Laboratory Results - last 24 hr 06/13/22 06/14/22 06:41 06:13 Potassium 3.5 L Magnesium 1.4 L Troponin I 0.05 H C-Reactive Protein 1.9 H
[2022-06-14] MEDS: POTASSIUM BICARB 25 MEQ EFFERVESCENT TAB PO ×3 (16:58→20:49)
--- NOTE | 2022-06-14 19:54 | PC.NURSE ---
Pt pleasant and cooperative. up ambulating in hallway. No BM today. tolerating full liquid. MIR scan tomorrow with bean picker machine operator [id number]. pain reported 5-03/26. Replaced K+ today. see emar for pain control.
[2022-06-14] MEDS: ZOLPIDEM 5 MG TABLET PO (23:37)
[2022-06-15 03:00] VITALS: BP 165/99; PULSE 56; RESP 18; TEMP 36.7; O2SAT 95
--- NOTE | 2022-06-15 06:41 | PC.NURSE ---
Alert and oriented x4. Vitals stable. No new neuro changes. On continuous telemetry with no new tele changes. Pain managed with oxycodone. Denies concerns at this time. Kept NPO post midnight. Will continue to monitor and assess
[2022-06-15 07:00] VITALS: BP 146/96; PULSE 64; PULSE 96; RESP 16; TEMP 37; O2SAT 98
[2022-06-15] MEDS: MORPHINE 4 MG/ML INJ IVP (08:25)
--- NOTE | 2022-06-15 08:30 | NM_ITS ---
Patient: GIGI BETHEA Facility:?[facility] Patient ID:?[id number] Site Patient ID:?[id number]. Site :?[id number] Study:?NM-Cardiac Procedure Myocardial Perfusion-06/15/2022 11:59:29 AM Ordering Physician:Betty Chu Final Report: MYOCARDIAL PERFUSION SCAN - [facility] ? [facility] CLINICAL HISTORY: 52-year-old male. Hypertension. Hyperlipidemia. Pre-diabetes. Previous myocardial infarction. 209 pounds. TECHNIQUE: Resting SPECT and stress gated SPECT with wall motion and ejection fraction) Stress: Pharmacologic ? Lexiscan (0.4 mg) IV Dose (Stress/Rest): 29.7 mCi/7.88 mCi Tc-99m Sestamibi IV Comparison: None FINDINGS: There is good uptake of activity by the left ventricle. There is borderline left ventricular enlargement. CLV=407 mL. ESV=51 mL. There is soft tissue attenuation. No other significant fixed or reversible defects are identified. The gated images demonstrate a normal left ventricular ejection fraction of 66 percent. No regional wall motion abnormalities are identified. IMPRESSION: 1. There is no evidence of significant myocardial ischemia or infarction. 2. Normal left ventricular ejection fraction of 66 percent. 3. There is borderline left ventricular enlargement. This study was jointly reviewed by radiology and cardiology. ENOC HDZ M.D. [email or web address] GRB/[id number] D& Transcribed: 2:20 p.m. KIM JOLLY M.D. CO-READ[facility] Department of Cardiology MICHELLE/Dictated by: Enoc Hdz MD @ 06/15/2022 1:43:00 PM Signed by:?Enoc Hdz MD @06/15/2022 2:44:19 PM (Electronic Signature)
--- NOTE | 2022-06-15 09:27 | PC.SOCIAL ---
Went into room to see pt and discuss possible resources upon discharge. Pt stated that he is going to his home and declined resources. Pt stated he may need a passenger flagman but he will look for a safety deposit clerk when he is out of the hospital. Offered resources for substance abuse treatment and pt declined. Provided information on the [facility] in [place] if pt is in need of a place to go to locate resources after discharge from the hospital. Pt stated he will go to the [facility] if things are not working out at home. Informed pt that he can reach out to the [employer] [facility] if anything changes before discharge and he would like additional assistance.
[2022-06-15] MEDS: REGADENOSON 0.4 MG/5 ML SYRINGE IVP (10:45)
[2022-06-15] MEDS: SODIUM CHLORIDE 0.9 % (FLUSH) 10 ML SYRINGE IVF (11:01)
--- NOTE | 2022-06-15 11:42 | PM.ST ---
Stress Test Note Date Date Seen: 06/15/22 Date of test: 06/15/22 Providers Referring provider: Kimberley Rivera Primary care provider: TALI JOYCE Stress test physician: Aryan Lunsford Stress Test Note Stress test ordered: Lexiscotilio Indication for test: Elevated troponin epigastric pain Stress test medicine: Lexiscan Results discussion: Patient is a very nice inpatient that was referred for the above test after in [place] physician and discussed with Cardiology. I discussed with Mr. Rogers the risks benefits and side effects of the treatment course. He accepts these and we proceeded with the Lexiscan per protocol. He had absolutely no symptoms, there is no chest pain shortness of breath or any other anginal equivalents. Review of the tracing shows no evidence of ST wave changes there is no dysrhythmias Impression: Negative electrographic portion Lexiscan Follow up suggested: Follow up with Cardiology, Cardiology and nuclear Medicine will review the nuclear portion, clinical correlation with this will be needed.
[2022-06-15 11:45] VITALS: BP 142/88; PULSE 69; RESP 16; TEMP 36.6; O2SAT 97
[2022-06-15 12:22] LABS: Hematocrit 37.3 % (37.0-53.0); Hemoglobin* 12.7 gm/dL (13.5-17.5); Mean Corpuscular HGB Conc 34 gm/dL (32-36); Mean Corpuscular Hemoglobin 33 pg (26-34); Mean Corpuscular Volume 98 fL (80-100); Platelet Count* 151 K/uL (140-440); Red Blood Count 3.82 m/uL (4.30-5.90); White Blood Count* 8.35 K/uL (4.50-11.00)
[2022-06-15] MEDS: CITALOPRAM HYDROBROMIDE 20 MG TABLET 10 MG PO (12:28)
[2022-06-15] MEDS: buPROPion XL 150 MG TABLET 300 MG PO (12:28)
[2022-06-15] MEDS: ROSUVASTATIN CALCIUM 10 MG TABLET PO (12:28)
[2022-06-15] MEDS: PANTOPRAZOLE SODIUM 40 MG INJ IVP (12:28)
[2022-06-15] MEDS: lisinopriL 10 MG TABLET PO (12:29)
[2022-06-15] MEDS: TAMSULOSIN HCL 0.4 MG CAPSULE PO (12:29)
[2022-06-15] MEDS: atenoloL 50 MG TABLET 100 MG PO (12:30)
[2022-06-15] MEDS: THIAMINE 100 MG TABLET PO (12:30)
[2022-06-15 12:31] LABS: Slide Review Reflex No
[2022-06-15] MEDS: SODIUM CHLORIDE 0.9 % (FLUSH) 10 ML SYRINGE 5 ML IVF (12:31)
[2022-06-15] MEDS: FOLIC ACID 1 MG TABLET PO (12:31)
[2022-06-15 12:34] LABS: Potassium* 3.5 mmol/L (3.6-5.1)
[2022-06-15] MEDS: LACTOBACILLUS ACIDOPHILUS 1 TABLET 2 TAB PO (12:48)
[2022-06-15] MEDS: OXYCODONE 5 MG TABLET PO (12:49)
--- NOTE | 2022-06-15 13:01 | NUTR.NU ---
RDN with MD consult for diet education related to deudenitis, alcoholism, and hypertension. Patient agreed to visit. Nutrition education provided on a low sodium diet related to hypertension.? Verbal and written information provided. Recommend limiting sodium to 2,000 mg per day.? Discussed foods recommended and to avoid.? Handouts provided from [facility] on hypertension nutrition therapy and myplate mission planner.?Patient verbalized understanding. RDN's contact information was provided and patient was encouraged to call with questions.?
[2022-06-15 15:00] VITALS: BP 162/98; PULSE 55; RESP 18; TEMP 36.6; O2SAT 98
--- NOTE | 2022-06-15 15:08 | PC.NURSE ---
shift [id number] Pt this shift resting comfortably on arrival, requested pain meds in AM. IV in R arm leaking, dc'd, new IV L forearm. No BM, voiding clear filomena. Pt joking with staff, calm and cooperative. Pt off floor for about 3 hours. NPO prior to test, no tray ordered after. All morning meds held until after test.
--- NOTE | 2022-06-15 17:55 | PC.NURSE ---
Discharge Summary: Patient discharged home at 1600 with all personal belongings. Discharge instructions including diagnosis, medication and follow up plan discussed with patient and voiced understanding. SL removed.
--- NOTE | 2022-06-22 08:08 | P.DS_ITS ---
DS: Providers Provider Time Seen by Provider: 12:00 Date Seen: 06/15/22 Date of admission: 06/10/22 14:32 Primary care physician: TALI JOYCE DO Admitting Clinician: Norman Bender MD Consults: 06/15/22 08:00 Consult to Nutrition [CONS] Routine Comment: Now tolerating full liquids. Reason for consult:: Miscellaneous Comment: Home recommendations Consult to Community Relations Representative [CONS] Routine Comment: Alcoholism assessment and treatment options Reason for Consult:: Discharge Planning Needs Attending Physician on discharge: Swapnil Hein MD Date of Discharge: 06/15/22 DS: Diagnosis Discharge Diagnosis (1) Duodenitis: Status: Acute Problem details: On IV PPI. (2) Elevated troponin: Status: Acute (3) NSTEMI (non-ST elevated myocardial infarction): Status: Acute Problem details: Troponin peak of 0.93. Statin added to medication regimen 06/10. Needs outpatient nuclear stress test. Final Impressions: 1. Normal LV size, normal global systolic function with an estimated EF of 55 - 60%. 2. No definite regional wall motion abnormality. 3. Right ventricular cavity size is normal, global systolic RV function is normal. 4. Mildly enlarged left atrium. 5. No significant valve disease detected. 6. The aortic sinus is normal for age/sex/bsa with a maximal diameter of 3.8 cm. (4) Alcohol abuse, daily use: Status: Acute (5) Alcoholism: Status: Acute (6) Alcohol withdrawal: Status: Acute (7) Essential hypertension: Status: Acute DS: Summary Hospital Course Hospital Course: Jonathan Cancino is a 52 year old male who presented to the emergency room for abdominal pain. The day prior to presentation, he began having pain in his epigastrium, radiating into his back.? This is accompanied by nausea and bilious emesis.? He denied hematemesis.? No chest pain or dyspnea.? No lower extremity edema.? ER course and findings: ?- CT scan of chest abdomen and pelvis was negative for pancreatitis or acute aortic process; positive for duodenitis: No evidence of aortic dissection or pulmonary embolism. Moderately severe duodenitis involving the proximal duodenum with reactive adenopathy. This may be secondary to duodenal ulcer. No abscess or free air. ?- troponin elevated ?- no acute changes on EKG.? ER physician discussed case with Cardiology, who felt that patient could be monitored on telemetry with close follow-up. Echocardiogram demonstrates: No regional wall motion abnormalities. Left ventricular ejection fraction 55- 60%. Otherwise benign assessment. ?- Admitted by [facility] telehospitalist overnight, started on BID PPI Treated conservatively. NPO, IV fluids, analgesia, antiemetics. We attempt to advance his diet slowly, at times having to stop the diet advancement due to pain or nausea and vomiting. In time he is able to tolerate and advance to a soft diet. Patient remained on telemetry throughout much of the hospitalization. No dysrhythmia. Repeat electrocardiograms demonstrated no ischemic changes. Troponin I peaked at 0.93. On date of discharge a myocardial perfusion Lexiscan was undertaken and demonstrated the followin. There is no evidence of significant myocardial ischemia or infarction. 2. Normal left ventricular ejection fraction of 66 percent. 3. There is borderline left ventricular enlargement. This study was jointly reviewed by radiology and cardiology. Time Spent with Patient Time attestation: Total time spent providing and/or coordinating discharge services: Exam Narrative: Exam Narrative: No acute distress.? Appears comfortable when I visit with him. Alert, oriented to self, place, time, situation.? Articulate, cooperative, friendly.? Mood and affect are congruent.? Lungs are clear to auscultation.? Heart tones with regular rhythm.? Abdomen with active bowel sounds, soft, nontender.? Extremities without edema.? Independent transfer, station, and gait.? No tremor, asterixis or ataxia. Skin is warm, dry, intact. Const: Documenting provider has reviewed patient's vital signs: yes Discharge Plan Discharge Disposition: Home, Self-Care Date of Admission: 06/10/22 14:32 Attending Provider on Discharge: Swapnil Hein Primary Care Provider: TALI JOYCE Condition: Improved Anticipated Discharge Date/Time: 06/15/22 16:00 Discharge Medications: New folic acid 1 mg Tablet 1 mg PO DAILY 30 Days Qty: 30 0RF Lactobacillus acidophilus 0.5 mg (100 million cell) Tablet 1 mg PO TIDWM 90 Days Qty: 180 0RF Rx Instructions: May substitute with a different pro-biotic, following the directions on the product label, for a total of 3 months. lisinopril 10 mg Tablet 10 mg PO DAILY 30 Days Qty: 30 1RF oxycodone 5 mg Tablet 5 mg PO TID PRN (Reason: Pain) 7 Days Qty: 15 0RF thiamine mononitrate (vit B1) 100 mg tablet 100 mg PO DAILY Qty: 90 0RF Continued allopurinol 300 mg tablet 300 mg PO DAILY atenolol 100 mg tablet 100 mg PO DAILY bupropion HCl 300 mg tablet extended release 24 hr 300 mg PO DAILY citalopram 10 mg tablet 10 mg PO DAILY omeprazole 20 mg capsule,delayed release(DR/EC) 20 mg PO DAILY tamsulosin 0.4 mg capsule 0.4 mg PO DAILY hydroxyzine HCl 25 mg tablet 25 mg PO QID PRN Discontinued lisinopril-hydrochlorothiazide 10-12.5 mg tablet 1 tab PO DAILY Discharge Orders: Discharge Order (Routine); Ordered 06/15/22 Ordered By: Swapnil Hein Patient Education: Lisinopril (By mouth), Thiamine (By mouth), Folic Acid (By mouth), Oxycodone, Rapid Release (By mouth), Probiotic (By mouth), Acute Nausea and Vomiting (DC), Abdominal Pain (ED), Alcohol Dependence (GEN), Duodenitis (GEN) Activity Restrictions/Additional Instructions: 1. Follow-up with primary care physician in 5-10 days; 2. Seek out and obtain treatment for alcoholism/alcohol dependence; 3. Avoid the use of any aspirin containing products or non-steroidal anti- inflammatory medications (such as Motrin) for the next 1 month minimum. Activity Level: No Restrictions and Activity as Tolerated Discharge Diet: Regular Diet Detail: Soft diet for next 5-10 days, advance gradually to regular textured diet. Follow Up Appointments: Stress test, Blessing scan [Other] - 06/15/22 9:30 am Provider,Not a Local [Referring] - TALI JOYCE DO [Primary Care Provider] - 06/24/22 1:35 am (Follow up with PCP on this date) Forms: [employer] Info Instructions
== END 2022-06-15 16:00 | disposition home or self-care (01) | DRG 391 ==
LOC: ED 22:49 → MEDSURG 06-10 00:06
PROVIDERS: Family Medicine; Internal Medicine; Admitting Provider Internal Medicine; Emergency Provider Family Medicine; PCP Student in an Organized Health Care Education/Training Program; Visit Provider Internal Medicine
DX: K29.80 Duodenitis without bleeding (principal); I21.4 Non-ST elevation (NSTEMI) myocardial infarction; F10.239 Alcohol dependence with withdrawal, unspecified; K21.9 Gastro-esophageal reflux disease without esophagitis; F32.A Depression, unspecified; M10.9 Gout, unspecified; I10 Essential (primary) hypertension; N40.0 Benign prostatic hyperplasia without lower urinary tract symptoms; M43.22 Fusion of spine, cervical region; F41.9 Anxiety disorder, unspecified; M54.2 Cervicalgia
CPT/HCPCS: 36415; 71046; 71270; 74019; 74177; 78452; 80048; 80053; 80076; 80306; 81001; 82077; 82150; 83036; 83605; 83690; 83735; 84132; 84484; 85018; 85025; 85027; 85379; 85610; 86140; 86850; 86900; 86901; 87338; 87493; 87502; 87634; 87635; 93005; 93016; 93017; 93306; 99285; 99291; G0378; A9270; A9500; C9113; J1170; J2060; J2270; J2405; J2560; J2785; J7030; J7120; Q9967

== ENCOUNTER 2022-08-29 16:35 | Inpatient (IN) | payer OTHER, BC, SELFPAY ==
[2022-08-29] VITALS (7 sets, daily range): BP systolic 164–191; BP diastolic 102–109; PULSE 60–75; RESP 18–22; TEMP 36.6–36.9; O2SAT 95–99; BMI 30.4
--- NOTE | 2022-08-29 17:04 | CRLHL7_ITS ---
For Patients: As a result of the Century Cures Act, medical imaging exams and procedure reports are released immediately into your electronic medical record. You may view this report before your referring provider. If you have questions, please contact your health care provider. Indication: ABD PAIN/RIGHT SIDED Technique: Postcontrast CT abdomen and pelvis. 100 cc Isovue 370 intravenous contrast. Please note that all CT scans at this facility use dose modulation, iterative reconstruction, and/or weight-based dosing when appropriate to reduce radiation dose to as low as reasonably achievable. Comparison: 06/09/2022, 08/06/2021 Findings: Chronic inflammatory changes above uncinate process of pancreas again noted with adjacent retroperitoneal adenopathy extending to the portal caval region. Similar thickening of the adjacent duodenum. No gastric outlet obstruction. No drainable fluid collection. Kidneys and adrenal glands are normal without hydronephrosis or adrenal mass. Mild hepatic steatosis. No intrahepatic mass or stigmata of cirrhosis. Gallbladder and spleen normal. Vascular calcifications. No aneurysm. Lung bases clear. No free air. Degenerative changes at the sacroiliac joints and symphysis pubis. The bladder wall is mildly prominent likely related to incomplete distention. There is sigmoid diverticulosis. No diverticulitis. No evidence of inflammatory bowel disease. Impression: Chronic inflammatory changes involving the uncinate process of the pancreas with extension to the adjacent duodenum including retroperitoneal stranding and adenopathy. Correlation with GI consultation recommended if this has been performed. Additional imaging recommendations would include MRCP/ERCP. Hepatic steatosis. No cirrhosis. No drainable fluid collection. Sigmoid diverticulosis. No diverticulitis. Mild bladder wall thickening which may be due to incomplete distention, correlate with possible cystitis. Please note that all CT scans at this facility use dose modulation, iterative reconstruction, and/or weight-based dosing when appropriate to reduce radiation dose to as low as reasonably achievable. Dictated by Iftikhar Negrete MD @ 08/29/2022 6:11:57 PM (Electronically Signed)
--- NOTE | 2022-08-29 17:07 | ED.GENADULT ---
HPI - General Adult General Time Seen by Provider: 17:08 Date Seen: 08/29/22 Chief complaint: Nausea/Vomiting Stated complaint: Vomiting,Upper Rt Abdominal Pain Time Seen by Provider: 08/29/22 16:37 Source: patient Mode of arrival: ambulatory Limitations: no limitations History of Present Illness HPI narrative: Patient is a 52 year white male who drinks 3-4 beers a day, is had alcohol lives a mint listed on his past medical history as well alcohol withdrawal , history of duodenitis, but he denies any history of a esophageal varices presents with a couple day history of nausea vomiting some right upper quadrant pain. As mention is had duodenitis in the past. He has had pancreatitis in the past. He reports his drinking is been stable but persistent. Denies chest pain, shortness of breath, fevers, chills, leg swelling or edema. No blood in his stool no blood in his vomitus, but he did notice some darkish vomit before some bilious vomit which he describes as green Related Data Home Medications Medication Instructions Recorded Confirmed allopurinol 300 mg tablet 300 mg PO DAILY 06/10/22 08/29/22 atenolol 100 mg tablet 100 mg PO DAILY 06/10/22 08/29/22 bupropion HCl 300 mg 24 hr tablet, 300 mg PO DAILY 06/10/22 08/29/22 extended release citalopram 10 mg tablet 10 mg PO DAILY 06/10/22 08/29/22 hydroxyzine HCl 25 mg tablet 25 mg PO QID PRN 06/10/22 08/29/22 omeprazole 20 mg capsule,delayed 20 mg PO DAILY 06/10/22 08/29/22 release tamsulosin 0.4 mg capsule 0.4 mg PO DAILY 06/10/22 08/29/22 Previous Rx's Medication Instructions Recorded Lactobacillus acidophilus 0.5 mg 1 mg PO TIDWM 90 days #180 tabs 06/15/22 (100 million cell) tablet folic acid 1 mg tablet 1 mg PO DAILY 30 days #30 tabs 06/15/22 lisinopril 10 mg tablet 10 mg PO DAILY 30 days #30 tabs 06/15/22 oxycodone 5 mg tablet 5 mg PO TID PRN Pain 7 days #15 06/15/22 tabs thiamine mononitrate (vit B1) 100 100 mg PO DAILY #90 tabs 06/15/22 mg tablet Allergies Allergy/AdvReac Type Severity Reaction Status Date / Time Penicillins Allergy Verified 08/29/22 17:34 PFSH PFS Medical History (Updated 08/29/22 @ 19:50 by Demetrius Brennan MD) Acid reflux Alcohol abuse, daily use Anxiety Depression Enlarged prostate Essential hypertension Gout Hepatic steatosis Hypertension Perianal abscess Surgical History (Updated 08/29/22 @ 19:41 by Demetrius Brennan MD) S/P cervical spinal fusion S/P knee surgery Social History (Updated 08/29/22 @ 19:42 by Demetrius Brennan MD) Narrative: Not working currently secondary to disability from spine surgery. Injury occurred June 2020. He has been on disability since that time. He lives with his and his 16-year-old son. He has a 19-year-old daughter who is in college in [place]. He does not smoke. He reports 4-5 beers per day alcohol consumption Highest level of school completed/degree received: high school graduate Smoking Status: Former smoker Do you use any of these nicotine containing products: None Second hand tobacco smoke exposure: No How often do you have a drink containing alcohol: 4 or more times a week Alcohol type: beer Alcohol type details: 5 beers/day How many standard drinks containing alcohol do you have on a typical day: 5 or 6 How often do you have six or more drinks on one occasion: Daily or almost daily AUDIT-C Alcohol total score: 10 Non-prescribed substance use: denies use Caffeine: No (rare) service: No Exam Narrative: Exam Narrative: Objective: Vital signs unremarkable other than elevated blood pressure Alert orient x3, pleasant, does not appear intoxicated, skin warm and dry HEENT unremarkable Neck is supple Chest clear Heart rhythm regular with 2/6 systolic ejection murmur Abdomen benign soft other than right upper quadrant and mid abdomen subxiphoid area he has some mild tenderness to palpation mild voluntary guarding bowel sounds normoactive Extremities are no edema Neurologic nonfocal can not good peripheral perfusion noted Skin warm and dry as mention Const: Vital Signs, click to edit/add: Vital Signs - 24 hr 08/29/22 16:51 Temperature 98.4 F Pulse Rate [Pulse Oximeter] 75 Respiratory Rate 18 Blood Pressure [Le ft Upper Arm] 164/105 H Pulse Oximetry 95 Oxygen Delivery Me thod Room Air Course Vital Signs Vital signs: Initial Vital Signs Temperature 98.4 F 08/29/22 16:51 Temperature Source Temporal Artery Scan 08/29/22 16:51 Pulse Rate 75 08/29/22 16:51 Respiratory Rate 18 08/29/22 16:51 Blood Pressure 164/105 H 08/29/22 16:51 Blood Pressure Mean 124 08/29/22 16:51 Blood Pressure Position Supine 08/29/22 16:51 Pulse Oximetry 95 08/29/22 16:51 Oxygen Delivery Method 08/29/22 16:51 Vital Signs Temperature 98.4 F 08/29/22 16:51 Pulse Rate 75 08/29/22 16:51 Respiratory Rate 18 08/29/22 16:51 Blood Pressure 164/105 H 08/29/22 16:51 Pulse Oximetry 95 08/29/22 16:51 Oxygen Delivery Method 08/29/22 16:51 Temperature 97.8 F 08/29/22 21:14 Pulse Rate 71 08/29/22 21:35 Respiratory Rate 20 08/29/22 21:14 Blood Pressure 185/102 H 08/29/22 21:14 Pulse Oximetry 99 08/29/22 21:14 Oxygen Delivery Method 08/29/22 21:14 Medical Decision Making MDM Narrative Medical decision making narrative: Patient is a 52-year-old male who drinks regularly with history of duodenitis, with vomiting right upper quadrant and mid subxiphoid pain. I suspect he has alcoholic gastritis or duodenitis. Will check labs as above disposition pending findings, CT of the abdomen pelvis with contrast, labs, hemoglobin, IV Protonix and IV fluid, alcohol level. Disposition pending findings above his clinical response Addendum: The patient has a CT scan that shows chronic uncinate inflammation inflammatory changes of his pancreatic area, he also has some duodenal thickening that could be consistent with duodenitis as well perhaps even inflammation from his pancreas causing this. His lipase is markedly elevated in the 2000 range. At this point he feels a little better with IV fluids and pain medicine, I think given he has pancreatitis she keep him NPO, admit him to the hospital will discuss with hospitalist. Course he needs to quit drinking. Addendum: Per cardiac catheterization technologist, gallbladder ultrasound looks unremarkable Lab Data Labs: Lab Results 08/29/22 08/29/22 08/29/22 Range/Units 17:20 17:20 17:20 WBC 16.66 H (4.50-11.00) K/uL RBC 4.98 (4.30-5.90) m/uL Hgb 15.7 (13.5-17.5) gm/dL Hct 46.5 (37.0-53.0) % MCV 93 (80-100) fL MCH 32 (26-34) pg MCHC 34 (32-36) gm/dL RDW Coeff of Juaquin 13.8 (11.5-15.5) % Plt Count 209 (140-440) K/uL Neut % (Auto) 82.2 H (42.0-72.0) % Lymph % (Auto) 10.3 L (20-44) % [place] % (Auto) 6.8 (0.0-11.0) % Eos % (Auto) 0.3 (0.0-7.0) % Baso % (Auto) 0.2 (0.0-3.0) % Neut # (Auto) 13.70 H (1.7-7.0) K/uL Lymph # (Auto) 1.70 (0.90-2.90) K/uL [place] # (Auto) 1.10 H (0.00-0.90) K/UL Eos # (Auto) 0.00 (0.00-0.50) K/uL Baso # (Auto) 0.00 (0.00-0.30) K/uL Abs Immat Gran (auto) 0.00 (0.00-0.30) K/uL Imm/Tot Granulo (auto) 0.2 % Sodium 136 (135-149) mmol/L Potassium 3.6 (3.6-5.1) mmol/L Chloride 100 (96-114) mmol/L Carbon Dioxide 24 (20-32) mmol/L BUN 14 (7-30) mg/dL Creatinine 0.8 (0.5-1.5) mg/dL Estimated Creat Clear 111.53 Estimated GFR 106 ml/min Glucose 114 (60-115) mg/dL Calcium 10.0 (8.4-10.6) mg/dL Magnesium 2.1 (1.5-2.6) mg/dL Total Bilirubin 1.0 (0.1-1.5) mg/dL Direct Bilirubin 0.3 (0.0-0.5) mg/dL AST 42 H (12-35) U/L ALT 26 (4-50) U/L Alkaline Phosphatase 140 (40-150) U/L Troponin I < 0.01 L (0.01-0.04) ng/mL C-Reactive Protein 1.0 (0.5-1.0) mg/dL NT-Pro-B Natriuret Pep 3280 H (0-125) PG/mL Total Protein 9.4 H (6.0-8.3) g/dL Albumin 4.9 (3.3-5.0) g/dL Amylase 227 H (18-89) U/L Lipase 2486 H (23-300) U/L Ethyl Alcohol (0.01-0.03) % SARS-CoV-2 (PCR) Negative SARS-CoV-2 (Negative) 08/29/22 Range/Units 17:20 WBC (4.50-11.00) K/uL RBC (4.30-5.90) m/uL Hgb (13.5-17.5) gm/dL Hct (37.0-53.0) % MCV (80-100) fL MCH (26-34) pg MCHC (32-36) gm/dL RDW Coeff of Juaquin (11.5-15.5) % Plt Count (140-440) K/uL Neut % (Auto) (42.0-72.0) % Lymph % (Auto) (20-44) % [place] % (Auto) (0.0-11.0) % Eos % (Auto) (0.0-7.0) % Baso % (Auto) (0.0-3.0) % Neut # (Auto) (1.7-7.0) K/uL Lymph # (Auto) (0.90-2.90) K/uL [place] # (Auto) (0.00-0.90) K/UL Eos # (Auto) (0.00-0.50) K/uL Baso # (Auto) (0.00-0.30) K/uL Abs Immat Gran (auto) (0.00-0.30) K/uL Imm/Tot Granulo (auto) % Sodium (135-149) mmol/L Potassium (3.6-5.1) mmol/L Chloride (96-114) mmol/L Carbon Dioxide (20-32) mmol/L BUN (7-30) mg/dL Creatinine (0.5-1.5) mg/dL Estimated Creat Clear Estimated GFR ml/min Glucose (60-115) mg/dL Calcium (8.4-10.6) mg/dL Magnesium (1.5-2.6) mg/dL Total Bilirubin (0.1-1.5) mg/dL Direct Bilirubin (0.0-0.5) mg/dL AST (12-35) U/L ALT (4-50) U/L Alkaline Phosphatase (40-150) U/L Troponin I (0.01-0.04) ng/mL C-Reactive Protein (0.5-1.0) mg/dL NT-Pro-B Natriuret Pep (0-125) PG/mL Total Protein (6.0-8.3) g/dL Albumin (3.3-5.0) g/dL Amylase (18-89) U/L Lipase (23-300) U/L Ethyl Alcohol < 0.01 L (0.01-0.03) % SARS-CoV-2 (PCR) (Negative) Discharge Plan Discharge Clinical Impression: Alcohol abuse, daily use, Abdominal pain with vomiting Patient Disposition: Admitted As Inpatient
[2022-08-29 17:25] LABS: Basophils Percent Auto 0.2 % (0.0-3.0); Eosinophils Percent Auto 0.3 % (0.0-7.0); Hematocrit 46.5 % (37.0-53.0); Hemoglobin* 15.7 gm/dL (13.5-17.5); Immature Granulocytes Pct Auto 0.2 %; Lymphocytes Percent Auto 10.3 % (20-44); Mean Corpuscular HGB Conc 34 gm/dL (32-36); Mean Corpuscular Hemoglobin 32 pg (26-34); Mean Corpuscular Volume 93 fL (80-100); Monocytes Percent Auto 6.8 % (0.0-11.0); Neutrophils Percent Auto 82.2 % (42.0-72.0); Platelet Count* 209 K/uL (140-440); RDW Coefficient of Variation % 13.8 % (11.5-15.5); Red Blood Count 4.98 m/uL (4.30-5.90); White Blood Count* 16.66 K/uL (4.50-11.00)
[2022-08-29] MEDS: MORPHINE 4 MG/ML INJ IVP (17:25)
[2022-08-29] MEDS: PANTOPRAZOLE SODIUM 40 MG INJ IVP (17:26)
[2022-08-29 17:33] LABS: Slide Review Reflex No
--- NOTE | 2022-08-29 17:36 | CRLHL7_ITS ---
For Patients: As a result of the Century Cures Act, medical imaging exams and procedure reports are released immediately into your electronic medical record. You may view this report before your referring provider. If you have questions, please contact your health care provider. INDICATION: Right upper quadrant abdomen pain. TECHNIQUE: Ultrasound abdomen limited. Sonographic images of the right upper quadrant were obtained using moran-scale and color Doppler images. COMPARISON: Abdominal CT from the same day. FINDINGS: Liver: Enlarged, measuring 19.5 cm. Mild diffuse increased hepatic echogenicity. No suspicious masses. No intrahepatic biliary dilatation. Gallbladder: No stones or sludge. Normal wall thickness. No pericholecystic fluid. Common bile duct: 3 mm. Pancreas: Unremarkable. Right kidney: Normal in size. Normal echotexture and cortex. No suspicious masses, stones, or hydronephrosis. Vasculature: Proximal abdominal aorta and IVC are unremarkable. IMPRESSION: Hepatomegaly with mild hepatic steatosis. Normal gallbladder. Dictated by Kaiden Quiroga MD @ 08/29/2022 7:15:11 PM (Electronically Signed)
[2022-08-29 17:38] LABS: Albumin* 4.9 g/dL (3.3-5.0); Chloride* 100 mmol/L (96-114)
[2022-08-29 17:39] LABS: Potassium* 3.6 mmol/L (3.6-5.1); Sodium* 136 mmol/L (135-149)
[2022-08-29 17:40] LABS: Amylase* 227 U/L (18-89)
[2022-08-29 17:41] LABS: Aspartate Amino Transferase* 42 U/L (12-35); Bilirubin Direct* 0.3 mg/dL (0.0-0.5); Carbon Dioxide* 24 mmol/L (20-32); Creatinine* 0.8 mg/dL (0.5-1.5); Est. Creatinine Clearance* 111.53; Estimated Glomerular Filt Rate 106 ml/min; Total Protein* 9.4 g/dL (6.0-8.3)
[2022-08-29 17:42] LABS: Alanine Aminotransferase* 26 U/L (4-50); Alkaline Phosphatase* 140 U/L (40-150); Blood Urea Nitrogen* 14 mg/dL (7-30); Ethanol* < 0.01 % (0.01-0.03); Glucose* 114 mg/dL (60-115)
[2022-08-29] MEDS: 0.9 % SODIUM CHLORIDE 1000 ml 1,000 ML 6000 ML IV (17:45)
--- OUTSIDE RECORDS SUMMARY | 2022-08-29 17:46 | XMS_ITS | Encounter Summary ---
:1970 Author Organization [facility] Address [address] [place] [address] Care Team Providers Name Role Phone None Reported, Pcp Primary Care Provider Unavailable Encounter Details Date Type Department Care Team Description 05/22/2021 Clinical Communication Department of Neurology Jony Cabrera M.D. in [facility] [address] [facility] [address] [place] [id number] [phone] Social History Tobacco Use Types Packs/Day Years Used Date Smoking Tobacco: Every Day Cigarettes Smokeless Tobacco: Current Chew Alcohol Use Standard Drinks/Week Comments Never 0 (1 standard drink = 0.6 oz pure alcoho l) Alcohol Habits Answer Date Recorded How often do you have a drink containing 4 or more times a w [place] 05/15/2021 alcohol? How many drinks containing alcohol do you have 7 to 9 05/15/2021 on a typical day when you are drinking? How often do you have six or more drinks on one Daily or senthil ost daily 05/15/2021 occasion? Social Isolation Answer Date Recorded In a typical week, how many times do you More than three soledad es a week 05/15/2021 talk on the phone with family, friends, or neighbors? How often do you get together with friends Once a week 05/15/2021 or relatives? How often do you attend orthodox or Patient refused 2020 jain services? Do you belong to any clubs or Yes 05/15/2021 organizations such as orthodox groups, unions, fraternal or athletic groups, or school groups? How often do you attend meetings of the Patient refused 05/15/2021 clubs or organizations you belong to? Are you now , , , 05/15/2021 , never or living with a partner? Physical Activity Answer Date Recorded On average, how many days per week do you engage in moderate to 2 days 05/15/2021 strenuous exercise (like walking fast, running, jogging, dancing, swimming, biking, or other activities that cause a light or heavy sweat)? On average, how many minutes do you engage in exercise at th is 20 min 05/15/2021 level? Food Insecurity Answer Date Recorded Within the past 12 months, you worried that your food would Never true 05/15/2021 run out before you got money to buy more. Within the past 12 months, the food you bought just didn't N ever true 05/15/2021 last and you didn't have money to get more. Transportation Needs Answer Date Recorded In the past 12 months, has lack of transportation kept you f rom No 05/15/2021 medical appointments or from getting medications? In the past 12 months, has lack of transportation kept you f rom No 05/15/2021 meetings, work, or getting things needed for daily living? Housing Stability Answer Date Recorded In the last 12 months, was there a time when you were Patien t refused 05/15/2021 not able to pay the mortgage or rent on time? In the last 12 months, how many places have you lived? 1 05/15/2021 In the last 12 months, was there a time when you did No 05/15/[address] to sleep or slept in a assisted (including now)? Education Answer Date Recorded What is the highest level of school you have completed or 12 th grade 05/15/2021 the highest degree you have received? Sex Assigned at Date Recorded Not on file documented as of this encounter Miscellaneous Notes Addendum Note - Lula Franklin, R.N. - 05/22/2021 1:53 PM CDT Addended by: LULA RFANKLIN on: 05/22/2021 01:53 PM Modules accepted: Orders Telephone Encounter - Lula Franklin R.N. - 05/22/2021 1:53 PM CDT Done. Telephone Encounter - Jony Pringle M.D. - 05/22/2021 1:45 PM CDT To Epilepsy RN, Kindly help me arrange for the patient to have his blood drawn for epilepsy autoimmune antibody panel, at [facility] Thank you , E. So. documented in this encounter Plan of Treatment Not on filedocumented as of this encounter Visit Diagnoses Diagnosis Other Seizures (HCC) - Primary documented in this encounter Care Teams Equipment Operator Relationship Specialty Start Date End Date None Reported, Pcp PCP - General Family Medicine 03/13/21 documented as of this encounter
--- OUTSIDE RECORDS SUMMARY | 2022-08-29 17:46 | XMS_ITS | Encounter Summary ---
:1970 Author Organization [facility] Address [address] [place] [address] Care Team Providers Name Role Phone None Reported, Pcp Primary Care Provider Unavailable Encounter Details Date Type Department Care Team Description 05/20/2021 Hospital Encounter Department of Jony Pringle Other Se izures (FORM[facility]LY [facility]) Laboratory Medicine M.D. in [place], [facility] [address] [place], [place] [address] [place] [address] [place], [place] [phone] (Work) [phone] Social History Tobacco Use Types Packs/Day Years Used Date Smoking Tobacco: Every Day Cigarettes Smokeless Tobacco: Current Chew Alcohol Use Standard Drinks/Week Comments Never 0 (1 standard drink = 0.6 oz pure alcoho l) Alcohol Habits Answer Date Recorded How often do you have a drink containing 4 or more times a w [place] 05/15/2021 alcohol? How many drinks containing alcohol [...] or relatives? How often do you attend jew or Patient refused 2020 jewish services? Do you belong to any clubs or Yes 05/15/2021 organizations such as jew groups, unions, fraternal or athletic groups, or [...] place to sleep or slept in a detention (including now)? Education Answer Date Recorded What is the highest level of school you have completed or 12 th grade 05/15/2021 the highest degree you have received? Sex Assigned at Date Recorded Not on file documented as of this encounter Medications at Time of Discharge Medication Sig Dispensed Refills Start Date End Date allopurinoL (ZYLOPRIM) 300 Daily 0 0 mg tablet atenoloL (TENORMIN) 100 mg Take 100 mg by mouth 0 12/05/2020 tablet daily. buPROPion XL (WELLBUTRIN Take 300 mg by mouth 0 0 02/06/2021 XL) 300 mg 24 hr tablet daily. citalopram (CeleXA) 10 mg Take 10 mg by mouth 0 0 02/06/2021 tablet daily. levETIRAcetam (KEPPRA) Take 0.5 pill twice 60 tablet 11 04/18 1,000 mg tabletIndications: a day. Other Seizures (HCC) lisinopril-hydroCHLOROthiaz Take 1 tablet by 0 phil (PRINZIDE,ZESTORETIC) mouth daily. 10-12.5 mg per tablet omeprazole (PriLOSEC) 20 mg Take 20 mg by mouth 0 08/05/2020 DR capsule daily. documented as of this encounter Plan of Treatment Not on filedocumented as of this encounter Procedures Procedure Name Priority Date/Time Associated Comments Diagnosis MONOCLONAL GAMMOPATHY Routine 05/20/2021 9:01 AM Other Seizure s Results for this DIAGNOSTIC, S CDT (HCC) procedure are in the results section. PERNICIOUS ANEMIA Routine 05/20/2021 9:01 AM Other Seizures Re sults for this CASCADE, S CDT (HCC) procedure are i n the results section. LEVETIRACETAM LEVEL, S Routine 05/20/2021 9:01 AM Other Seizur es Results for this CDT (HCC) procedure are i n the results section. THYROID-STIMULATING Routine 05/20/2021 9:01 AM Other Seizures Results for this HORMONE-SENSITIVE CDT (HCC) procedure are in (S-TSH) the results section. GLUCOSE, FASTING, S/P Routine 05/20/2021 9:01 AM Other Seizure s Results for this CDT (HCC) procedure are i n the results section. documented in this encounter Results (ABNORMAL) Levetiracetam Level (05/20/2021 9:01 AM CDT) P athologist Signature Levetiracetam, 6.6 (L) 10.0 - 05/21/2021 [facility] S 40.0 12:03 PM CDT mcg/mL Comment: ----ADDITIONAL INFORMATION---- This test was developed and its performa nce characteristics determined by [facility] in a manner consistent with CLIA requirements. This test has not been cleared or approved by the [place] d and Drug Administration. Specimen Anatomical Collection Method Collection Time Receive d Time (Source) Location / / Volume Laterality Blood (Blood, 05/20/2021 9:01 AM 05/21/20 7:29 Venous) CDT AM CDT Jony Pringle M.D. LAB BLOOD NON ADD-ON Performing Organization Address City/State/ZIP Code Phon e Number [facility] [address] [place], [place] [address] SUPPORT CENTER [facility] [place] [address] Laboratory Medicine and Pathology [address] (ABNORMAL) Monoclonal Gammopathy Diagnostic (05/20/2021 9:01 AM CDT) Component Value Ref Range Test Analysis Performed Pathologis t Method Time At Signature Therapeutic No SDSC Antibody 1 6:14 AM Administered? CDT Total 7.3 6.3 - 7.9 [facility] Protein, S g/dL 1 7:06 AM CDT [place] Free 2.55 (H) 0.3300 - SD[facility] Light Chain, 1.94 mg/dL 1 8:53 AM S CDT Lambda Free 2.87 (H) 0.5700 - [facility] Light Chain, 2.63 mg/dL 1 8:53 AM S CDT [place]/Lambda 0.8885 0.2600 - SD[facility] FLC Ratio 1.65 1 8:53 AM CDT Albumin 3.3 (L) 3.4 - 4.7 [facility] g/dL 1 12:41 PM CDT Alpha-1 0.2 0.1 - 0.3 [facility] Globulin g/dL 1 12:41 PM CDT Alpha-2 1.1 (H) 0.6 - 1.0 [facility] Globulin g/dL 1 12:41 PM CDT Beta-Globulin 1.0 0.7 - 1.2 SDSC g/dL 1 12:41 PM CDT Gamma-Globuli 1.7 (H) 0.6 - 1.6 SD[facility] n g/dL 1 12:41 PM CDT A/G Ratio 0.81 [facility]SC 1 12:41 PM CDT Impression Polyclonal hypergammaglobulinemia 05/21 SDSC 1 12:41 See Isotype. PM CDT Flag, Negative Negative SDSC M-protein 1 9:33 PM Isotype CDT M-protein No monoclonal protein SDSC Isotype detected. 1 9:33 PM MALDI-TOF MS CDT Comment: ----ADDITIONAL INFORMATION---- The submitted sample was assayed by five separate immunopurifications for IgG, IgA, IgM, kappa and lambda. ??The r esult reflects the findings of either no monoclonal protein detected or those monoclonal immunoglobulins that were detected. This test was developed and its performa nce characteristics determined by [facility] in a manner consistent with CLIA requirements. This test has not been cleared or approved by the U.[place]. [place] d and Drug Administration. Specimen Anatomical Collection Method Collection Time Receive d Time (Source) Location / / Volume Laterality Blood (Blood, 05/20/2021 9:01 AM 05/21/20 6:14 Venous) CDT AM CDT Narrative [facility] [place] R - 05/21/2021 9:33 PM CDT Specimen Information: Specimen ID: [id number] Specimen Type: Blood Specimen Collection Start Date: 1 ??9:01 AM Specimen Received Date: 05/21/2021 ??6:14 AM Specimen ID: [id number] Specimen Type: Blood Specimen Collection Start Date: 1 ??9:01 AM Specimen Received Date: 05/21/2021 ??6:14 AM Jony Pringle M.D. LAB BLOOD ADD-ON Performing Organization Address City/State/ZIP Code Phon e Number [facility] [address] [place] [address] SUPPORT [facility] [place] [address] Laboratory Medicine and Pathology [address] [place] [address] Pernicious Anemia [place] (05/20/2021 9:01 AM CDT) athologist Signature Vitamin B12 [phone] 05/21/2021 SDSC Assay, S ng/L 9:58 AM CDT Specimen Anatomical Collection Method Collection Time Receive d Time (Source) Location / / Volume Laterality Blood (Blood, 05/20/2021 9:01 AM 05/21/20 7:45 Venous) CDT AM CDT Jony Pringle M.D. LAB BLOOD NON ADD-ON Performing Organization Address City/State/ZIP Code Phon e Number [facility] [address] [place] [address] [place] [address] C[facility] [place] [address] Laboratory Medicine and Pathology [address] S-TSH (Thyroid-Stimulating Hormone - Sensitive) (05/20/2021 9:01 AM CDT) athologist Signature TSH, Sensitive 2.2 0.3 - 4.2 05/20/2021 NPRG mIU/L 9:40 AM CDT Specimen Anatomical Collection Method Collection Time Receive d Time (Source) Location / / Volume Laterality Blood (Blood, 05/20/2021 9:01 AM 05/20/20 9:05 Venous) CDT AM CDT Jony Pringle M.D. LAB BLOOD ADD-ON Performing Organization Address City/State/ZIP Code Phon e Number [place] [address] [facility] [address] Glucose, Fasting (05/20/2021 9:01 AM CDT) athologist Signature Glucose, P 84 70 - 100 05/20/2021 NPRG mg/dL 10:08 AM CDT Last Intake 16 hr 05/20/2021 NPRG 9:05 AM CDT Specimen Anatomical Collection Method Collection Time Receive d Time (Source) Location / / Volume Laterality Blood (Blood, 05/20/2021 9:01 AM 05/20/20 9:05 Venous) CDT AM CDT Jony Pringle M.D. LAB BLOOD NON ADD-ON Performing Organization Address City/State/ZIP Code Phon e Number [place] [address] [facility] [address] documented in this encounter Visit Diagnoses Diagnosis Other Seizures (HCC) documented in this encounter Care Teams Agitator Operator Relationship Specialty Start Date End Date None Reported, Pcp PCP - General Family Medicine 03/13/21 documented as of this encounter
--- OUTSIDE RECORDS SUMMARY | 2022-08-29 17:46 | XMS_ITS | Encounter Summary ---
:1970 Author Organization [facility] Address [address] [place] [address] Care Team Providers Name Role Phone None Reported, Pcp Primary Care Provider Unavailable Reason for Visit Outpatient (Routine) - Closed Specialty Diagnoses / Procedures Referred By Contact Refer red To Contact Neurology Diagnoses Neuropathy Jony Pringle M.D. [facility] Procedures Neurology - Peripheral nerve eConsult [address] [place], [place] [address] Referral ID Status Reason Start Date Expiration Date Visits Requ ested Visits Authorized [id number] Closed 05/22/2021 05/22/2022 1 1 Encounter Details Date Type Department Care Team Description 06/04/2021 Internal E-Consult Department of Neurology Joe Ontiveros, Neuropathy in [facility] zoila Cobos [address] [facility] [address] [place] [address] [place], [place] [phone] (Wo rk) Social History Tobacco Use Types Packs/Day Years Used Date Smoking Tobacco: Every Day Cigarettes Smokeless Tobacco: Current Chew Alcohol Use Standard Drinks/Week Comments Never 0 (1 standard drink = 0.6 oz pure alcoho l) Alcohol Habits Answer Date Recorded How often do you have a drink containing 4 or more times a w [place] 05/15/2021 alcohol? How many drinks containing alcohol [...] or relatives? How often do you attend baptism or Patient refused 2020 pentecostalism services? Do you belong to any clubs or Yes 05/15/2021 organizations such as baptism groups, unions, fraternal or athletic groups, or [...] place to sleep or slept in a jail (including now)? Education Answer Date Recorded What is the highest level of school you have completed or 12 th grade 05/15/2021 the highest degree you have received? Sex Assigned at Date Recorded Not on file documented as of this encounter Consult Notes Rody Ontiveros M.D. - 06/04/2021 3:00 PM CDT SUBJECTIVE Ordering Physician: Jony Pringle M.D. The patient was not personally interviewed or examined. The history and examination findings are based on the clinical documentation provided and/or discussed with a physician or provider who had personally interviewed and examined the patient. Time spent: Fifteen minutes or more of medical review. Chief Complaint / Reason for Visit A consult was placed regarding Jonathan Cancino, a 51 y.o. male. Clinical question to be answered: Axonal neuropathy. Abnormal protein studies. History of Present Illness Mr. 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 The history and course of the neuropathy is not outlined for my review, but it appears as though the neuropathy is asymptomatic. There is a note of alcohol overuse. Physical examination is notable for reduced pinprick to the level of the knees. Absent ankle jerks were noted. Laboratory testing revealed a normal B12, TSH, and fasting blood glucose. Monoclonal protein study revealed no evidence of a monoclonal protein but he did have an elevated kappa and lambda free light chain with a normal kappa lambda ratio and a note of polyclonal hypergammaglobulinemia. The following portions of the patient's history were reviewed and updated as appropriate: allergies,current medications, family history, medical history, social history, surgical history and problem list. OBJECTIVE Physical examination by Dr. Pringle is notable for reduced pinprick to the level of the knees. Absent ankle jerks were noted. 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 Cancino is a 51-year-old gentleman who was found to have an asymptomatic sensory predominant axonal peripheral neuropathy. The cause of the neuropathy is unclear. Alcohol overuse can lead to neuropathy and vitamin deficiencies associated with neuropathy and thus vitamin levels such as folate, B1,B6 and copper could be evaluated. In terms of medications, Allopurinol can rarely be associated withan axonal neuropathy. Polyclonal hypergammaglobulinemia in and of itself is not a cause of neuropathy. There is no evidence of a monoclonal protein. Potential causes of polyclonal hypergammaglobulinemia include chronic liver disease, chronic infections, inflammatory or rheumatologic disorders or neoplastic disorders. Chronic liver disease, rheumatoid arthritis and Sjogren syndrome are common causes. A complete metabolic panel, CBC, connective tissue cascade, RF and ERNIE panel would be reasonable to assess in addition to an internal medicine evaluation. documented in this encounter Plan of Treatment Not on filedocumented as of this encounter Visit Diagnoses Diagnosis Neuropathy documented in this encounter Care Teams Composite Laminator Relationship Specialty Start Date End Date None Reported, Pcp PCP - General Family Medicine 03/13/21 documented as of this encounter
--- OUTSIDE RECORDS SUMMARY | 2022-08-29 17:46 | XMS_ITS | Clinical Summary ---
:1970 Author Organization [facility] Address [address] [place] [address] Care Team Providers Name Role Phone Elsewhere, Pcp Primary Care Provider Unavailable Source Comments Patient records contain information from all sites at [facility]. For routine questions regarding patient records, call [phone] during business hours, M-F 8:00 AM - 5:00 PM Central Time. Record requests for emergency care only can be directed to [phone] at any time.[facility] Allergies Active Allergy Reactions Severity Noted Date Comments Penicillins Hives 03/13/2021 Medications Medication Sig Dispensed Refills Start Date End Date Status buPROPion XL Take 300 mg by 0 02/06/2021 A ctive (WELLBUTRIN XL) 300 mg mouth daily. 24 hr tablet citalopram (CeleXA) 10 Take 10 mg by 0 02/06/2021 Active mg tablet mouth daily. atenoloL (TENORMIN) Take 100 mg by 0 12/05/2020 Active 100 mg tablet mouth daily. lisinopril-hydroCHLORO Take 1 tablet by 0 08/05/2020 Active thiazide mouth daily. (PRINZIDE,ZESTORETIC) 10-12.5 mg per tablet omeprazole (PriLOSEC) Take 20 mg by 0 08/05/[address] capsule mouth daily. allopurinoL (ZYLOPRIM) Daily 0 08/05/2020 Active 300 mg tablet levETIRAcetam (KEPPRA) Take 0.5 pill 60 tablet 11 05/15/2021 Active 1,000 mg twice a day. tabletIndications: Other Seizures (HCC) lacosamide (VIMPAT) 50 Take one pill 120 tablet 4 05/22/2021 Active mg tabletIndications: twice a day for Other Seizures (HCC) one week. After 1 week, increase to 2 pills twice a day. Active Problems No known active problems Social History Tobacco Use Types Packs/Day Years Used Date Smoking Tobacco: Every Day Cigarettes Smokeless Tobacco: Current Chew Alcohol Use Standard Drinks/Week Comments Never 0 (1 standard drink = 0.6 oz pure alcoho l) Alcohol Habits Answer Date Recorded How often do you have a drink containing 4 or more times a w [place] 05/15/2021 alcohol? How many drinks containing alcohol [...] or relatives? How often do you attend christian or Patient refused 2020 scientology services? Do you belong to any clubs or Yes 05/15/2021 organizations such as christian groups, unions, fraternal or athletic groups, or [...] Assigned at Date Recorded Not on file Last Filed Vital Signs Vital Sign Reading Time Taken Comments Blood Pressure 155/83 03/13/2021 9:15 PM CDT Pulse 85 03/13/2021 9:15 PM CDT Temperature 36.5 ??C (97.7 ??F) 03/13/2021 7:04 PM CDT Respiratory Rate 21 03/13/2021 9:15 PM CDT Oxygen Saturation 98% 03/13/2021 9:15 PM CDT Inhaled Oxygen Concentration - - Weight 93 kg (205 lb 0.4 oz) 05/15/2021 9:06 AM CDT Height 179 cm (5' 10.47) 05/15/2021 9:06 AM CDT Body Mass Index 29.03 05/15/2021 9:06 AM CDT Plan of Treatment Health Maintenance Due Date Last Done Comments CT Colonography 1970 Cologuard 1970 Colonoscopy 1970 Colorectal Cancer Screening 1970 FIT 1970 HIV Screening 1970 Hepatitis C Screening 1970 Tobacco Cessation counseling 1970 COVID-19 Vaccine (#1) 1970 Zoster Vaccines (1 of 2) 02/27/2020 Depression Screening (Annual 10/17/2021 PHQ-2) Creatinine Level 07/09/2022 07/09/2021, 03/13/2021, 12/26/2020, Additional history exists Potassium Level 07/09/2022 07/09/2021, 03/13/2021, 12/26/2020, Additional history exists Sodium Level 07/09/2022 07/09/2021, 03/13/2021, 12/26/2020, Additional history exists Fasting Glucose for Diabetes 07/09/2024 07/09/2021, 021, Screening 03/13/2021, Additional history exists Lipid (Cholesterol) Screening 08/06/2024 08/06/2019 DTaP,Tdap,and Td Vaccines (3 - Td 08/06/2029 08/06/2019, or Tdap) Hepatitis B Vaccines Completed 05/20/2003, 01/15/2003, 12/17/2002 Influenza Vaccine Completed 06/24/2022, 08/09/2021, 08/05/2020, Additional history exists Pneumococcal vaccine (0-64 years) Completed 06/24/2022 Insurance Payer Benefit Plan / Subscriber ID Effective Phone Address T ype Group Dates [facility] [id number] 2019-Pre [phone] PPO OPEN ACCESS sent [phone] [phone] [facility] [facility] [id number] 2016-Pre [phone] [address] PPO SHIELD 1 sent [phone] [id number] Care Teams Pecan Cleaner Relationship Specialty Start Date End Date Elsewhere, Pcp PCP - General 02/07/22
--- OUTSIDE RECORDS SUMMARY | 2022-08-29 17:46 | XMS_ITS | Encounter Summary ---
:1970 Author Organization [facility] Address [address] [place] [address] Care Team Providers Name Role Phone None Reported, Pcp Primary Care Provider Unavailable Reason for Referral Outpatient (Routine) - Closed Specialty Diagnoses / Procedures Referred By Contact Refer red To Contact Diagnoses Other Seizures (HCC) Jony Pringle M.D. [facility] Procedures EEG routine - awake and sleep [address] [place] [address] Referral ID Status Reason Start Date Expiration Date Visits Requ ested Visits Authorized [id number] Closed 05/15/2021 05/15/2022 1 1 Reason for Visit Outpatient (Routine) - Closed Specialty Diagnoses / Procedures Referred By Contact Refer red To Contact Diagnoses Other Seizures (HCC) Jony Pringle M.D. [facility] Procedures EEG routine - awake and sleep [address] [place] [address] Referral ID Status Reason Start Date Expiration Date Visits Requ ested Visits Authorized [id number] Closed 05/15/2021 05/15/2022 1 1 Encounter Details Date Type Department Care Team Description 05/18/2021 Hospital Encounter Department of Jony Pringle Other Se izures (HCC) Neurology in [place], [place] [address] [facility] [address] [place] [id number] Social History Tobacco Use Types Packs/Day Years Used Date Smoking Tobacco: Every Day Cigarettes Smokeless Tobacco: Current Chew Alcohol Use Standard Drinks/Week Comments Never 0 (1 standard drink = 0.6 oz pure alcoho l) Alcohol Habits Answer Date Recorded How often do you have a drink containing 4 or more times a w [place] 05/15/2021 alcohol? How many drinks containing alcohol [...] or relatives? How often do you attend rastafarian or Patient refused 2020 episcopalian services? Do you belong to any clubs or Yes 05/15/2021 organizations such as rastafarian groups, unions, fraternal or athletic groups, or [...] place to sleep or slept in a alf (including now)? Education Answer Date Recorded What [...] encounter Procedures Procedure Name Priority Date/Time Associated Diagnosis Comme nts EEG ROUTINE - AWAKE Routine 05/18/2021 11:12 AM Other Seizures (HCC) Results for this AND SLEEP CDT procedure are i n the results section. documented in this encounter Results EEG routine - awake and sleep (05/18/2021 11:12 AM CDT) Specimen (Source) Anatomical Location Collection Method / Collectio n Time Received Time / Laterality Volume Narrative [facility] - 05/18/2021 12:46 PM CDT Clinical Interpretation: Normal EEG during wakefulness and drowsiness. ??No potentially epileptogenic activity was p resent during the recording. Classification: SPECIAL STUDY - Short-te rm video EEG. Normal (awake and drowsy). Sleep - unsuccessful EKG channel. Report: The short-term video EEG recordi ng during wakefulness contains 9-10 Hz alpha activity over the posterio r head regions. ??No abnormal activity occurred at rest or with photic stimulation. Hyperventilation was omitted due to COVID precautions During the recording, the patient became drowsy but did not fall asleep. The EKG channel was unremarkable. Yajaira Muse MD FINANCIAL ACCOUNTANT/Epilepsy Fellow Jony Pringle M.D. NEUROLOGY ORDERABLES Performing Organization Address City/State/ZIP Code Phon e Number [facility] NA documented in this encounter Visit Diagnoses Diagnosis Other Seizures (HCC) documented in this encounter Care Teams Tours Captain Relationship Specialty Start Date End Date None Reported, Pcp PCP - General Family Medicine 03/13/21 documented as of this encounter
--- OUTSIDE RECORDS SUMMARY | 2022-08-29 17:46 | XMS_ITS | Encounter Summary ---
:1970 Author Organization [facility] Address [address] [place] [address] Care Team Providers Name Role Phone None Reported, Pcp Primary Care Provider Unavailable Reason for Referral Outpatient (Routine) - Closed Specialty Diagnoses / Procedures Referred By Contact Refer red To Contact Diagnoses Other Seizures (HCC) Eduardo Frank M.D. [facility] Procedures [facility] [address] [place] [address] Referral ID Status Reason Start Date Expiration Date Visits Requ ested Visits Authorized [id number] Closed 05/15/2021 05/15/2022 1 1 Reason for Visit Outpatient (Routine) - Closed Specialty Diagnoses / Procedures Referred By Contact Refer red To Contact Diagnoses Other Seizures (HCC) Eduardo Frank M.D. [facility] Procedures [facility] [address] [place] [address] Referral ID Status Reason Start Date Expiration Date Visits Requ ested Visits Authorized [id number] Closed 05/15/2021 05/15/2022 1 1 Encounter Details Date Type Department Care Team Description 05/18/2021 Hospital Encounter Department of Eduardo Frank Other Se izures (HCC) Neurology in [place], [place] [address] [facility] [address] [place] [phone] Social History Tobacco Use Types Packs/Day Years Used Date Smoking Tobacco: Every Day Cigarettes Smokeless Tobacco: Current Chew Alcohol Use Standard Drinks/Week Comments Never 0 (1 standard drink = 0.6 oz pure alcoho l) Alcohol Habits Answer Date Recorded How often do you have a drink containing 4 or more times a w [place] 05/15/2021 alcohol? How many drinks containing alcohol [...] or relatives? How often do you attend anabaptist or Patient refused 2020 episcopalian services? Do you belong to any clubs or Yes 05/15/2021 organizations such as anabaptist groups, unions, fraternal or athletic groups, or [...] place to sleep or slept in a halfway (including now)? Education Answer Date Recorded What [...] Name Priority Date/Time Associated Diagnosis Comme nts EMG Routine 05/18/2021 8:02 AM Other Seizures (HCC) R esults for this CDT procedure are i n the results section . documented in this encounter Results EMG (05/18/2021 8:02 AM CDT) Specimen (Source) Anatomical Collection Method Collection Time Re ceived Time Location / / Volume Laterality 05/18/2021 8:45 AM CDT Narrative EMG - 05/18/2021 9:01 AM CDT 18-May-2021 ? Electromyography ? Final Report Study Number: 1 EMG Regional Operations Director: Michael Ennis 127 or [phone] Referred by: EDUARDO FRANK (127 or [phone]) Referred for: PN Referral Code: ?200 RX: 205 SUMMARY: Prior to starting the procedure , the patient's identity was verified, pertinent available records were reviewed, the nature of the procedure was explained, the appropriate sites of the exam were confirmed directly with the pa tient, and a pre-procedure pause was performed for final verification of all of the above. ?? In the left lower extremity the peroneal motor response was in the low normal range, 1 the tibial response was normal. ??The the left medial plantar sensory response could not be re corded, while the sural sensory response had a borderline amplitude for age. ??In the right upper extremity, the ulnar motor response was normal. ??The median antidromic sensory response had a low am plitude slow conduction velocity. ??The ulnar antidromic sensory response was normal. ??F-waves w ere within F estimates. Concentric needle electromyography demonstrated reduced re cruitment of long duration high- amplitude motor units in a length-dependent fashion in the left low er limb. CLINICAL INTERPRETATION: This is an abno rmal study. 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 Kita Ennis (127 or [phone])/[facility] NERVE CONDUCTIONS ??Record Rep ?? Normal ??Normal Distal Normal F-Wave F-Wave Temp Nerve Type Site Stim Side Amp Amp CV CV Lat Lat Lat Est (??C) Fibular Motor EDB ??L 2.8 (> 2.0) 42 (> 41) 6.1 (< 6.6) 61.8 62.1 31.2 Tibial Motor AH ??L 7.5 (> 4.0) 40 (> 40 ) 4.5 (< 6.1) 60.6 64.0 30.7 Medial Plantar Sensory Ankle ??L NR (> 7 .0) ??(> 46) NR (< 4.0) ?? 30.9 Sural Sensory Ankle ??L 7 (> 6.0) 45 (> 40) 3.9 (< 4.5) ?? 27.9 Ulnar Motor ADM ??L 10.7 (> 6.0) 55 (> 5 1) 2.7 (< 3.6) 32.8 28.2 33.7 Median Sensory Dig II ??L 8 (> 15.0) 55 (> 56) 3.2 (< 3.6) ?? 32.9 Ulnar Sensory Dig V ??L 14 (> 10.0) ??(> 54) 2.6 (< 3.1) ?? 33.1 NEEDLE EMG ??Ins Spont ??MUP ??Recruitment ??Durat ion ??Amplitude ??Phases ?? Muscle Side Act Fib Fasc Normal Activ Re duced Rapid Long Short High Low % Turns First dorsal interosseous L NL 0 0 NL ? Vastus medialis L NL 0 0 NL ? Gastrocnemius (medial head) L NL 0 0 NL ? Tibialis anterior L NL 0 0 ? +/- ??+ ? Peroneus tertius L NL 0 0 ?? +/- ??+ ??+ ??15% + This interpretation has been electron ically signed: Michael Ennis, [facility], PhD at 05/18/2021 8:59:31 AM CDT Procedure Note Michael Ennis M.B., B.Ch., Ph.D. - 05/18/2021 18-May-2021 Electromyography Final Repor t Study Number: 1 EMG Regional Operations Director: Michael Ennis 127 or [phone] Referred by: EDUARDO FRANK (127 or [phone]) Referred for: PN Referral Code: 200 RX: 205 SUMMARY: Prior to starting the procedure , the patient's identity was verified, pertinent available records were reviewed, the nature of the procedure was explained, the appropriate sites of the exam were confirmed directly with the pa tient, and a pre-procedure pause was performed for final verification of all of the above. In the left lower extremity the peroneal motor response was in the low normal range, 1 the tibial response was normal. The the left medial plantar sensory response could not be re corded, while the sural sensory response had a borderline amplitude for age. In the right upper ex tremity, the ulnar motor response was normal. The median antidromic sensory response had a low am plitude slow conduction velocity. The ulnar antidromic sensory response was normal. F-waves wer e within F estimates. Concentric needle electromyography demonstrated reduced re cruitment of long duration high- amplitude motor units in a length-dependent fashion in the left low er limb. CLINICAL INTERPRETATION: This is an abno rmal study. 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 Kita Ennis (127 or [phone])/[facility]ERVE CONDUCTIONS Record Rep Normal Normal Distal Normal F-Wave F-Wave Temp Nerve Type Site Stim Side Amp Amp CV CV Lat Lat Lat Est (??C) Fibular Motor EDB L 2.8 (> 2.0) 42 (> 41 ) 6.1 (< 6.6) 61.8 62.1 31.2 Tibial Motor AH L 7.5 (> 4.0) 40 (> 40) 4.5 (< 6.1) 60.6 64.0 30.7 Medial Plantar Sensory Ankle L NR (> 7.0 ) (> 46) NR (< 4.0) 30.9 Sural Sensory Ankle L 7 (> 6.0) 45 (> 40 ) 3.9 (< 4.5) 27.9 Ulnar Motor ADM L 10.7 (> 6.0) 55 (> 51) 2.7 (< 3.6) 32.8 28.2 33.7 Median Sensory Dig II L 8 (> 15.0) 55 (> 56) 3.2 (< 3.6) 32.9 Ulnar Sensory Dig V L 14 (> 10.0) (> 54) 2.6 (< 3.1) 33.1 NEEDLE EMG Ins Spont MUP Recruitment Duration Ampl itude Phases Muscle Side Act Fib Fasc Normal Activ Re duced Rapid Long Short High Low % Turns First dorsal interosseous L NL 0 0 NL Vastus medialis L NL 0 0 NL Gastrocnemius (medial head) L NL 0 0 NL Tibialis anterior L NL 0 0 +/- + Peroneus tertius L NL 0 0 +/- + + 15% + This interpretation has been electron ically signed: Michael Ennis [facility], PhD at 05/18/2021 8:59:31 AM CDT Eduardo Frank M.D. NEUROLOGY ORDERABLES Performing Organization Address City/State/ZIP Code Phon e Number [facility] documented in this encounter Visit Diagnoses Diagnosis Other Seizures (HCC) documented in this encounter Care Teams Regulatory Consultant Relationship Specialty Start Date End Date None Reported, Pcp PCP - General Family Medicine 03/13/21 documented as of this encounter
--- OUTSIDE RECORDS SUMMARY | 2022-08-29 17:46 | XMS_ITS | Encounter Summary ---
:1970 Author Organization [facility] Address [address] [place] [address] Care Team Providers Name Role Phone None Reported, Pcp Primary Care Provider Unavailable Reason for Visit Reason Comments Triage Encounter Details Date Type Department Care Team Description 03/17/2021 Clinical Communication Department of Peri Jenkins, Triage Neurology in [address] [phone] Social History Tobacco Use Types Packs/Day Years Used Date Smoking Tobacco: Never Smokeless Tobacco: Current Chew Alcohol Use Standard Drinks/Week Comments Never 0 (1 standard drink = 0.6 oz pure alcoho l) Alcohol Habits Answer Date Recorded How often do you have a drink containing 4 or more times a w elim ira 05/15/2021 alcohol? How many drinks containing alcohol [...] or relatives? How often do you attend confucianist or Patient refused 2020 shinto services? Do you belong to any clubs or Yes 05/15/2021 organizations such as confucianist groups, unions, fraternal or athletic groups, or [...] place to sleep or slept in a retirement (including now)? Sex Assigned at Date Recorded Not on file documented as of this encounter Miscellaneous Notes Telephone Encounter - Peri Jenkins R.N. - 03/17/2021 10:23 AM CDT Triage for: 2 seizures, new onset, neurology consults out of ED and wants outpatient appointment to eval, set up EEg and MRI Per ED notes on 03/13/21: Discussed with Dr York of Neurology. We went over prior admission with results, and today's event. With two episodes after stressful/emotional moments, he feels further investigation is warranted but thinks this could be done outpatient. He would like manic upper lobe with 3 g of Keppra IV now, and follow this with 1 g b.i.d. oral moving forward until he sees Neurology. Continue seizure precautions,and refer to Neurology for outpatient MRI and EEG, along with return precautions. documented in this encounter Plan of Treatment Not on filedocumented as of this encounter Visit Diagnoses Not on filedocumented in this encounter Care Teams Sales Research Analyst Relationship Specialty Start Date End Date None Reported, Pcp PCP - General Family Medicine 03/13/21 documented as of this encounter
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
--- OUTSIDE RECORDS SUMMARY | 2022-08-29 17:46 | XMS_ITS | Encounter Summary ---
:1970 Author Organization [facility] Address [address] [place] [address] Care Team Providers Name Role Phone None Reported, Pcp Primary Care Provider Unavailable Reason for Visit Reason Comments Pre-visit Intake Encounter Details Date Type Department Care Team Description 05/13/2021 Clinical Communication Department of Jony Pringle Pre- visit Intake Neurology in .[place], [place] [address] [facility] [address] [place] [phone] Social History Tobacco Use Types Packs/Day Years Used Date Smoking Tobacco: Never Smokeless Tobacco: Current Chew Alcohol Use Standard Drinks/Week Comments Never 0 (1 standard drink = 0.6 oz pure alcoho l) Alcohol Habits Answer Date Recorded How often do you have a drink containing 4 or more times a w [place] 05/15/2021 alcohol? How many drinks containing alcohol [...] or relatives? How often do you attend buddhism or Patient refused 2020 temple services? Do you belong to any clubs or Yes 05/15/2021 organizations such as buddhism groups, unions, fraternal or athletic groups, or [...] place to sleep or slept in a skilled nursing (including now)? Sex Assigned at Date Recorded Not on file documented as of this encounter Plan of Treatment Not on filedocumented as of this encounter Visit Diagnoses Not on filedocumented in this encounter Care Teams Shelter Case Manager Relationship Specialty Start Date End Date None Reported, Pcp PCP - General Family Medicine 03/13/21 documented as of this encounter
--- OUTSIDE RECORDS SUMMARY | 2022-08-29 17:46 | XMS_ITS | Encounter Summary ---
:1970 Author Organization [facility] Address [address] [place] [address] Care Team Providers Name Role Phone None Reported, Pcp Primary Care Provider Unavailable Reason for Referral MRI/CAT/PET Scan (Routine) - Closed Specialty Diagnoses / Procedures Referred By Contact Refer red To Contact Radiology Diagnoses Other Seizures (HCC) Jony Pringle M.D. [facility] Procedures MR Brain without IV Contrast [place] MRI BRAIN WO CNTRST HC MRI BRAIN WO CNTRST [address] [place] [phone] Referral ID Status Reason Start Date Expiration Date Visits Requ ested Visits Authorized [id number] Closed 05/15/2021 05/15/2022 1 1 Reason for Visit MRI/CAT/PET Scan (Routine) - Closed Specialty Diagnoses / Procedures Referred By Contact Refer red To Contact Radiology Diagnoses Other Seizures (HCC) Jony Pringle M.D. [facility] Procedures MR Brain without IV Contrast [place] MRI BRAIN WO CNTRST HC MRI BRAIN WO CNTRST [address] [place] [phone] Referral ID Status Reason Start Date Expiration Date Visits Requ ested Visits Authorized [id number] Closed 05/15/2021 05/15/2022 1 1 Encounter Details Date Type Department Care Team Description 05/15/2021 Hospital Encounter Department of oJny Pringle Other Se izures (HCC) RadiologyRoscoe M.D. [facility] in [place], [address] [place] [address] [address] [phone] [place], [place] [phone] (Work) [phone] Social History Tobacco Use Types Packs/Day Years Used Date Smoking Tobacco: Every Day Cigarettes Smokeless Tobacco: Current Chew Alcohol Use Standard Drinks/Week Comments Never 0 (1 standard drink = 0.6 oz pure alcoho l) Alcohol Habits Answer Date Recorded How often do you have a drink containing 4 or more times a w [place] 05/15/2021 alcohol? How many drinks containing alcohol [...] or relatives? How often do you attend rastafari or Patient refused 2020 oriental orthodox services? Do you belong to any clubs or Yes 05/15/2021 organizations such as rastafari groups, unions, fraternal or athletic groups, or [...] Procedure Name Priority Date/Time Associated Comments Diagnosis MR BRAIN WITHOUT RAD - Routine 05/15/2021 1:15 Other Seizures Resul ts for this IV CONTRAST (most inpatients PM CDT (HCC) procedure a re in and all the results outpatients) section. documented in this encounter Results MR Brain without IV Contrast (05/15/2021 1:15 PM CDT) Anatomical Region Laterality Modality Head, Brain, Neuroradiology RST LOS, Neuroradiology ARLucretia N/A Magnetic Resonance LOS, Neuroradiology FLA LOS [...] enlargement of the cerebral v entricles. Jony Pringle M.D. IMG MRI PROCEDURES documented in this encounter Visit Diagnoses Diagnosis Other Seizures (HCC) documented in this encounter Care Teams Dual Rate Dealer Relationship Specialty Start Date End Date None Reported, Pcp PCP - General Family Medicine 03/13/21 documented as of this encounter
--- OUTSIDE RECORDS SUMMARY | 2022-08-29 17:46 | XMS_ITS | Encounter Summary ---
:1970 Author Organization [facility] Address [address] [place] [address] Care Team Providers Name Role Phone None Reported, Pcp Primary Care Provider Unavailable Reason for Visit Reason Comments Pre-visit Intake Encounter Details Date Type Department Care Team Description 05/14/2021 Clinical Communication Department of Jony Pringle Pre- visit Intake Neurology in .[place], [place] [address] [facility] [address] [place] [phone] Social History Tobacco Use Types Packs/Day Years Used Date Smoking Tobacco: Every Day Cigarettes Smokeless Tobacco: Current Chew Alcohol Use Standard Drinks/Week Comments Never 0 (1 standard drink = 0.6 oz pure alcoho l) Alcohol Habits Answer Date Recorded How often do you have a drink containing 4 or more times a w [place] 05/15/2021 alcohol? How many drinks containing alcohol [...] or relatives? How often do you attend zoroastrian or Patient refused 2020 hinduism services? Do you belong to any clubs or Yes 05/15/2021 organizations such as zoroastrian groups, unions, fraternal or athletic groups, or [...] place to sleep or slept in a longterm (including now)? Sex Assigned at Date Recorded Not on file documented as of this encounter Plan of Treatment Not on filedocumented as of this encounter Visit Diagnoses Not on filedocumented in this encounter Care Teams Guest Services Lead Relationship Specialty Start Date End Date None Reported, Pcp PCP - General Family Medicine 03/13/21 documented as of this encounter
--- OUTSIDE RECORDS SUMMARY | 2022-08-29 17:46 | XMS_ITS | Clinical Summary ---
:1970 Author Organization [facility] [place] [address] Care Team Providers Name Role Phone Parker Peguero MD Primary Care Provider [phone] Storm Birmingham MD Unavailable Unavailable Allergies Active Allergy Reactions Severity Noted Date Comments Penicillins *Unknown 01/24/2007 Tizanidine Other - Describe In Comment Medium 07/09/2021 Light headed and dizzy Field Medications Medication Sig Dispensed Refills Start Date End Date Status tamsulosin (FLOMAX) Take 1 Capsule 30 Capsule 11 01/18/2022 Active 0.4 mg (0.4 mg) by mouth capsuleIndications: once daily after Lower urinary tract a meal. symptoms (LUTS) buPROPion (WELLBUTRIN TAKE 1 TABLET BY 90 Tablet 1 03/24/2022 Active XL) 300 mg MOUTH EVERY DAY Extended-Release tabletIndications: Mild recurrent major depression (HC) citalopram (CELEXA) 10 TAKE 1 TABLET BY 90 Tablet 1 03/24/2022 Active mg tabletIndications: MOUTH EVERY DAY Mild recurrent major depression (HC) clobetasol 0.05% APPLY TO AFFECTED 0 09/28/2021 Active TOPICAL (TEMOVATE) AREA ON SCALP 2 0.05 % external TIMES WEEKLY solution WEEKLY FOR MAINTENANCE hydrOXYzine HCL 0 06/12/2022 Act parminder (ATARAX) 25 mg tablet lisinopriL (PRINIVIL; Take 10 mg by 0 06/15/2022 Active ZESTRIL) 10 mg tablet mouth once daily. omeprazole (PRILOSEC) TAKE 1 CAPSULE 90 Capsule 1 07/13/2022 Active 20 mg Delayed-Release (20 MG) BY MOUTH capsuleIndications: ONCE DAILY BEFORE Gastroesophageal A MEAL. reflux disease, unspecified whether esophagitis present atenoloL (TENORMIN) TAKE 1 TABLET BY 90 Tablet 0 07/14/2022 Active 100 mg MOUTH EVERY DAY tabletIndications: Essential hypertension allopurinoL (ZYLOPRIM) TAKE 1 TABLET BY 90 Tablet 0 07/14/2022 Active 300 mg MOUTH EVERY DAY tabletIndications: History of gout clindamycin (CLEOCIN) Take 2 Capsules 56 Capsule 0 07/28/2022 150 mg (300 mg) by mouth 2 capsuleIndications: four times daily Sore throat for 7 days. Active Problems Problem Noted Date Alcoholic liver disease 05/07/2022 Gout 05/07/2022 Mood disorder 05/07/2022 Chronic headaches 05/07/2022 Cervical radiculopathy 08/17/2021 Cervicogenic headache 08/17/2021 Seizure disorder 08/17/2021 Chronic alcoholic pancreatitis 08/17/2021 Cervical spondylosis 03/04/2021 Encounters for unspecified administrative purpose 08/17 Mild alcohol dependence 07/01/2020 Alcohol use disorder, moderate, dependence 08/15/2018 Hepatomegaly 08/11/2018 Overview: Severe on CT on 08/05/18 Hypertension 08/30/2017 Overview: Onset 2006 Impaired fasting glucose 07/02/2015 Gastroesophageal reflux disease 07/25/2014 Overview: EGD 09/2018 Reactive gastropathy History of gout 02/10/2013 Overview: New diagnosis 02/10/2013 right foot Mild recurrent major depression 03/21/2008 Unspecified sleep apnea 03/02/2007 Allergic rhinitis, cause unspecified 01/24/2007 Hyperlipidemia Dyspepsia and other specified disorders of function of stomach Obesity, unspecified Resolved Problems Problem Noted Date Resolved Date Unspecified essential hypertension 01/24/200708/30 Encounters Date Type Specialty Care Team Description 08/06/2022 Orders Only Scanner <No scans attac hed> 07/28/2022 Hospital Encounter Gogo Espinosa, Sore throat DO 07/28/2022 Office Visit Gogo Espinosa Absces s; Mouth Problem DO 07/28/2022 Travel 07/13/2022 Refill Parker Peguero Refill Request MD Jim (Omeprazole, At enolol, Allopurinol) 06/24/2022 Office Visit Kaz Vazquez DO Hospital F/ U (06/12 - bowel obstructi on - things have bee n better - not having an y more pains / discomf ort - going to the thro normal ) 06/24/2022 Travel 06/13/2022 Orders Only Scanner <No scans attac hed> 06/10/2022 Orders Only <No scans attac hed> 06/10/2022 Travel from Last 3 Months Immunizations Name Administration Dates Next Due Hepatitis B (Adult) 05/20/2003, 01/15/2003, 12/17/2002 Influenza A (H1N1), Inactivated 08/09/2021, 09/28/2008 Influenza, IIV3 (Age >=3 years) 07/17/2018 Influenza, IIV4 06/24/2022, 08/09/2021, 08/05/2020, 09/17/2019 Pneumococcal Conj 20-valent (Prevnar 06/24/2022 20) Td (Age >=7 Years) 08/06/2019, 06/04/1997 Tdap 03/21/2008 Family History Medical History Relation Name Comments Diabetes Mother Hypertension Sister 1 Hypertension Sister 2 Psychiatric illness Sister 3 Relation Name Status Comments Mother Sister 1 Sister 2 Sister 3 Social History Tobacco Use Types Packs/Day Years Used Date Former Smoker Cigarettes 0.5 16 Smokeless Tobacco: Current User Chew Tobacco Cessation: Ready to Quit: No; Co unseling Given: Yes Comments: no TOB since 08/05/12 Alcohol Use Standard Drinks/Week Comments Yes 30 (1 standard drink = 0.6 oz pure he hammer s cut back from 12 beers per alcohol) day to about one juan manuel ly. Alcohol Habits Answer Date Recorded How often do you have a drink Not asked containing alcohol? How many drinks containing alcohol do Not asked you have on a typical day when you are drinking? How often do you have six or more Not asked drinks on one occasion? Comment: he has cut back from 12 beers per 2019 day to about one daily. Sex Assigned at Date Recorded Not on file Obstetrics History Last Filed Vital Signs Vital Sign Reading Time Taken Comments Blood Pressure 170/92 07/28/2022 12:59 PM CDT Pulse 94 07/28/2022 12:59 PM CDT Temperature 36.9 ??C (98.4 ??F) 07/28/2022 12:59 PM CDT Respiratory Rate 16 07/28/2022 12:59 PM CDT Oxygen Saturation 98% 07/28/2022 12:59 PM CDT Inhaled Oxygen Concentration - - Weight 95.7 kg (211 lb) 07/28/2022 12:59 PM CDT Height 176.8 cm (5' 9.61) 05/07/2022 8:06 AM CDT Body Mass Index 30.62 05/07/2022 8:06 AM CDT Plan of Treatment Health Maintenance Due Date Last Done Comments COVID-19 vaccine series (#1) 1970 Hepatitis C screening for age 0502/27/1988 18-79 Colonoscopy through age 75 2015 Zoster (shingles) series for age 0502/27/2020 50+ (1 of 2) Depression screening for age 12+ 10/24/2021 10/24/2020, , 08/05/2020, Additional history exists BMI (ht and wt on same day) for 05/07/2023 05/07/2022, 03/0 06/2021, age 18+ 08/05/2020, Additional history exists Lipids for age 45-75 08/06/2024 08/06/2019, 08/30/2017, 08/05/2016, Additional history exists Tetanus booster 08/06/2029 08/06/2019, 03/21/2008, 06/04/1997 Tdap Completed 03/21/2008 Influenza for age 50-64 Completed 06/24/2022, 08/09/2021, 08/09/2021, Additional history exists Pneumococcal series for age 19-64 Completed 06/24/2022 Procedures Procedure Name Priority Date/Time Associated Comments Diagnosis SCAN 08/06/2022 12:00 Results for this CORRESP-DIAGNOSTICS AM CDT procedur e are in the results section. CT NECK SOFT TISSUE W STAT 07/28/2022 2:23 PM Sore throat Results for this CDT procedure are i n the results section. CBC WITH AUTO STAT 07/28/2022 1:40 PM Sore throat Results for this DIFFERENTIAL CDT procedure are i n the results section. C-REACTIVE PROTEIN Routine 07/28/2022 1:40 PM Sore throat Res ults for this CDT procedure are i n the results section. BASIC METABOLIC PANEL STAT 07/28/2022 1:40 PM Sore throat Results for this CDT procedure are i n the results section. CBC WITH AUTO STAT 07/28/2022 1:40 PM Sore throat Results for this DIFFERENTIAL CDT procedure are i n the results section. SCAN-RADIOLOGY REPORT 06/13/2022 12:00 Re sults for this AM CDT procedure are i n the results section. ECHO COMPLETE WO Routine 06/10/2022 3:37 PM NSTEMI (non-ST Res ults for this CONTRAST CDT elevated myocardial procedur e are in infarction) (HC) the results section. from Last 3 Months Results SCAN CORRESP-DIAGNOSTICS (08/06/2022 12:00 AM CDT) Narrative This result has an attachment that is no t available. Scanner OTHER CT NECK SOFT TISSUE W (07/28/2022 2:23 PM CDT) Anatomical Region Laterality Modality NECK Computed Tomography Specimen (Source) Anatomical Collection Method Collection Time Re ceived Time Location / / Volume Laterality 07/28/2022 3:19 PM CDT Narrative 07/28/2022 3:19 PM CDT For Patients: ??As a result of the Cures Act, medical imaging exams and procedure report s are released immediately into your [facility] medical record. ??You may view this report before your referring provider. ??If you have questions, please contact your health care provider. Indication: Sore throat, soft tissue swelling and penaloza spected infection Technique: Volumetric multidetector CT images of th e cervical soft tissues were obtained after the administration of low osmolar intravenous contrast. 100 cc Omnipaque 300 low osmolar intrave nous contrast Comparison: None available. Findings: The partially visualized brain parenchym a is normal in attenuation without evidence of abnormal enhancement. The orbits and their contents are within normal limits. The paranasal sinuses are clear. The mastoid air cells are clear. The nasopharynx is unremarkable. The fos chi of Rosenmuller are clear. There is mild prominence of the palatine tonsils with minimal calcified tonsilliths appreciated. There is minimal thickening of the aryep iglottic folds. There is demonstration of a right perima ndibular rim enhancing fluid collection measuring 1.4 centimeters in greatest dimension with moderate superficial soft tissue swelling there is demonstration of f ocal apical root abscess of adjacent max illary molar tooth. The vocal folds are nonthickened with sy mmetrical appearance. The thyroid gland is normal in attenuati on. There are reactive cervical lymph nodes appreciated. The jugular veins are patent. The caroti d arteries demonstrate no significant atherosclerotic narrowing. The visualized lung apices demonstrate m ild to moderate interstitial prominence likely representing mild bronchial thickening. The cervical vertebral body heights are grossly maintained with arthrodesis of the C2-C3 level with anterior cervical discectomy and fusion. Impression: Demonstration of a 1.4 centimeter rim en hancing abscess along the mid right mandibular body commensurate with a small dental abscess from an adjacent apical root infection and dehiscence. Mild thickening of the aryepiglottic fol ds which may represent minimal pharyngitis changes. Nonspecific prominence of the palatine tonsils are noted without obvious tonsillitis. Please note that all CT scans at this [facility] use dose modulation, iterative reconstruction, and/or weight-based dosing when appropriate to reduce radiation dose to as low as reasonably achievable. Dictated by Benny Williamson MD @ 07/28/20 22 3:19:22 PM (Electronically Signed) Procedure Note Benny Williamson MD - 07/28/2022Fo rmatting of this note might be different from the original. For Patients: As a result of the ntury Cures Act, medical imaging exams and procedure reports are released immediately into your electronic medical record. You may view this report before your referring provider. If you have questions, please contact [facility] health care provider. Indication: Sore throat, soft tissue swelling and penaloza spected infection Technique: Volumetric multidetector CT images of th e cervical soft tissues were obtained after the administration of low osmolar intravenous contrast. 100 cc Omnipaque 300 low osmolar intrave nous contrast Comparison: None available. Findings: The partially visualized brain parenchym a is normal in attenuation without evidence of abnormal enhancement. The orbits and their contents are within normal limits. The paranasal sinuses are clear. The mastoid air cells are clear. The nasopharynx is unremarkable. The fos chi of Rosenmuller are clear. There is mild prominence of the palatine tonsils with minimal calcified tonsilliths appreciated. There is minimal thickening of the aryep iglottic folds. There is demonstration of a right perima ndibular rim enhancing fluid collection measuring 1.4 centimeters in greatest dimension with moderate superficial soft tissue swelling there is demonstration of focal apical root abscess of adjacent maxillary molar tooth. The vocal folds are nonthickened with sy mmetrical appearance. The thyroid gland is normal in attenuati on. There are reactive cervical lymph nodes appreciated. The jugular veins are patent. The caroti d arteries demonstrate no significant atherosclerotic narrowing. The visualized lung apices demonstrate m ild to moderate interstitial prominence likely representing mild bronchial thickening. The cervical vertebral body heights are grossly maintained with arthrodesis of the C2-C3 level with anterior cervical discectomy and fusion. Impression: Demonstration of a 1.4 centimeter rim en hancing abscess along the mid right mandibular body commensurate with a small dental abscess from an adjacent apical root infection and dehiscence. Mild thickening of the aryepiglottic fol ds which may represent minimal pharyngitis changes. Nonspecific prominence of the palatine tonsils are noted without obvious tonsillitis. Please note that all CT scans at this [facility] use dose modulation, iterative reconstruction, and/or weight-based dosing when appropriate to reduce radiation dose to as low as reasonably achievable. Dictated by Benny Williamson MD @ 07/28/20 22 3:19:22 PM (Electronically Signed) Gogo Espinosa DO CT (ABNORMAL) CBC WITH AUTO DIFFERENTIAL (07/28/2022 1:40 PM CDT) [facility] Method Time Signature WHITE BLOOD 9.3 4.5 - 07/28/2022 [place] COUNT 11.0 1:49 PM [facility] thou/cu LABORATORY mm RED BLOOD COUNT 4.20 (L) 4.30 - 07/28/2022 [place] 5.90 1:49 PM [facility] mil/cu mm LABORATORY HEMOGLOBIN 13.4 (L) 13.5 - 07/28/2022 [place] 17.5 g/dL 1:49 PM [facility] LABORATORY HEMATOCRIT 40.5 37.0 - 07/28/2022 [place] 53.0 % 1:49 PM [facility] LABORATORY MCV 96 80 - 100 07/28/2022 [place] fL 1:49 PM [facility] LABORATORY MCH 31.9 26.0 - 07/28/2022 [place] 34.0 pg 1:49 PM [facility] LABORATORY MCHC 33.1 32.0 - 07/28/2022 [place] 36.0 g/dL 1:49 PM [facility] LABORATORY RDW 13.3 11.5 - 07/28/2022 [place] 15.5 % 1:49 PM [facility] LABORATORY PLATELET COUNT 154 140 - 440 07/28/2022 [place] thou/cu 1:49 PM [facility] mm LABORATORY MPV 8.6 6.5 - 07/28/2022 [place] 11.0 fL 1:49 PM [facility] LABORATORY % NEUT 70.7 % 07/28/2022 [place] 1:49 PM [facility] LABORATORY % LYMPH 17.6 % 07/28/2022 [place] 1:49 PM [facility] LABORATORY % MONO 10.4 % 07/28/2022 [place] 1:49 PM [facility] LABORATORY % EOS 0.9 % 07/28/2022 [place] 1:49 PM [facility] LABORATORY % BASO 0.4 % 07/28/2022 [place] 1:49 PM [facility] LABORATORY ABSOLUTE 6.6 1.7 - 7.0 07/28/2022 [place] NEUTROPHILS thou/cu 1:49 PM [facility] mm LABORATORY ABSOLUTE 1.6 0.9 - 2.9 07/28/2022 [place] LYMPHOCYTES thou/cu 1:49 PM [facility] mm LABORATORY ABSOLUTE 1.0 (H) <0.9 07/28/2022 [place] MONOCYTES thou/cu 1:49 PM [facility] mm LABORATORY ABSOLUTE 0.1 <0.5 07/28/2022 [place] EOSINOPHILS thou/cu 1:49 PM [facility] mm LABORATORY ABSOLUTE 0.0 <0.3 07/28/2022 [place] BASOPHILS thou/cu 1:49 PM [facility] mm LABORATORY Specimen Anatomical Collection Method / Collection Time Recei anthony Time (Source) Location / Volume Laterality Blood BLOOD SPECIMEN / Venipuncture / 07/28/2022 1:40 2021 1:41 Unknown Unknown PM CDT PM CDT Gogo Espinosa DO HEMATOLOGY Performing Organization Address City/[facility] Phon e Number [facility]ORATORY [address] [place] [address] (ABNORMAL) C-REACTIVE PROTEIN (07/28/2022 1:40 PM CDT) Analysis Performed At [facility] C-REACTIVE 1.20 (H) <0.50 07/28/2022 [place] PROTEIN mg/dL 2:00 PM [facility]OR[facility]ORY Specimen Anatomical Collection Method / Collection Time Recei anthony Time (Source) Location / Volume Laterality Blood BLOOD SPECIMEN / Venipuncture / 07/28/2022 1:40 2021 1:41 Unknown Unknown PM CDT PM CDT Gogo Espinosa DO CHEMISTRY Performing Organization Address [facility] Phon e Number [facility] [address] [place] [address] (ABNORMAL) BASIC METABOLIC PANEL (07/28/2022 1:40 PM CDT) Analysis Performed At [facility] Signature SODIUM 134 (L) 135 - 145 07/28/2022 [place] mmol/L 2:02 PM [facility] LABORATORY POTASSIUM 4.2 3.5 - 5.0 07/28/2022 [place] mmol/L 2:02 PM [facility] LABORATORY CHLORIDE 100 98 - 110 07/28/2022 [place] mmol/L 2:02 PM [facility] LABORATORY CO2,TOTAL 25 21 - 31 07/28/2022 [place] mmol/L 2:02 PM [facility] LABORATORY ANION GAP 9 5 - 18 07/28/2022 [place] 2:02 PM [facility] LABORATORY GLUCOSE 108 (H) 65 - 100 07/28/2022 [place] mg/dL 2:02 PM [facility] LABORATORY CALCIUM 9.7 8.5 - 10.5 07/28/2022 [place] mg/dL 2:02 PM [facility] LABORATORY BUN 6 (L) 8 - 25 07/28/2022 [facility] mg/dL 2:02 PM [facility] LABORATORY CREATININE 0.87 0.72 - 07/28/2022 [facility] 1.25 mg/dL 2:02 PM [facility] LABORATORY BUN/CREAT RATIO 7 (L) 10 - 20 07/28/2022 [facility] 2:02 PM [facility] eGFR >90 >90 [facility]/28[facility]22 [facility] mL/min/1.7 2:02 PM [facility] 3m2 LABORATORY Comment: As of 2021, eGFR is calcu lated by the CKD-EPI creatinine equation without race adjustment. eGFR can be inf luenced by muscle mass, exercise, and diet. The reported eGFR is an estimation only and is only applicable if the renal function is stable. Specimen Anatomical Collection Method / Collection Time Recei anthony Time (Source) Location / Volume Laterality Blood BLOOD SPECIMEN / Venipuncture / 07/28/2022 1:40 2021 1:41 Unknown Unknown PM CDT PM CDT Gogo Espinosa DO CHEMISTRY Performing Organization Address City/State/ZIP Code Phon e Number [facility] [address] [place] [address] SCAN-RADIOLOGY REPORT (06/13/2022 12:00 AM CDT) Narrative This result has an attachment that is no t available. Scanner OTHER ECHO COMPLETE WO CONTRAST (06/10/2022 3:37 PM CDT) athologist Signature AORTIC VALVE 4 mmHg MEAN PG EJECTION 59 % FRACTION LVEDD 5.3 cm EJECTION 55 - 60% FRACTION Anatomical Region Laterality Modality HEART Ultrasound Specimen (Source) Anatomical Collection Method Collection Time Re ceived Time Location / / Volume Laterality 06/10/2022 2:45 PM CDT Narrative 06/10/2022 3:43 PM CDT ECHOCARDIOGRAM GIGI BETHEA ? Accessi on#: ?? [id number] : ?1970 52 years Study Date: ?? 06/10/2022 2:45:04 PM Gender: M ?BP: ? 117/80 mmHg Height: 178.00 cm ?BSA: ?2.13 m? ?? Weight: 95.00 kg ? Tech: ? MJS ? Referring MD: SHANNON BRENNAN Site: ? [facility] Reading Location: [facility] [place] Procedure: 2D, Color Doppler and Spectra l Doppler. Indication for study: NSTEMI Cardiac Rhythm: Normal sinus.Study quali ty: Good. Final Impressions: 1. Normal LV size, normal global systol ic function with an estimated EF of 55 - 60%. 2. No definite regional wall motion abn ormality. 3. Right ventricular cavity size is nor mal, global systolic RV function is normal. 4. Mildly enlarged left atrium. 5. No significant valve disease detecte d. 6. The aortic sinus is normal for age/s ex/bsa with a maximal diameter of 3.8 cm. Comparison There are no prior studies on this patie nt for comparison purposes. Chamber Sizes and Function Normal left ventricular size, borderline wall thickness, normal global systolic function with an estimated EF of 55 - 60%. Left atrial size is mildly enlarged. Right ventricular cavity size is normal, g lobal systolic RV function is normal. Th e right atrium is normal. Right atrial volume index is 24 ml/m? ??. Right atrial area is 16 cm? ??. The pulmonary artery is of normal size and origin. The sinus o f Valsalva is normal for age/sex/bsa. Th e ascending aorta is normal sized. Valves, RV Pressures and Diastolic Funct ion The aortic valve is trileaflet and scler otic, no stenosis and no regurgitation. The mitral valve is normal in structure, trace mitral regurgitation. Normal diastolic function. The tricuspid valve is nor mal in structure. Tricuspid regurgitatio n is regurgitation is not evident. The pulmonic valve is normal. No pulmonary regurgitation. TTE images do not appear adequate for transcather intervention with patient supine. Masses, Effusion, Shunts There is no pericardial effusion. The in ferior vena cava is normal sized, respiratory size variation greater than 50%. No left to right shunting was detected by limited color flow Doppler interrogation of the interatrial septum. MEASUREMENTS AND CALCULATIONS 2-D Measurements and LV Function: LVID (d) 5.3 cm LV FS% (2D) ?? 31 % LVID (s) 3.6 cm LVOT diameter 2.2 cm IVS (d) ??1.2 cm HR ?56 bpm LVPW (d) 1.2 cm LA Vol index ??30 ml/m2 Ao Sinus 3.8 cm RA Vol index ??24 ml/m2 Asc Ao ?? 3.4 cm RA area ? 16 cm? ?? LA ? 4.0 cm RV Max 4C (d) 3.6 cm Diastology: Mitral ?Tissue Doppler E Peak 0.6 m/s ??e', Septum ? 0.09 m /s A Peak 0.4 m/s ??e', Lateral ?0.12 m /s E/A ?1.5 ?E/e' Average ?? 6.1 4 DT ? 310 msec Aortic Valve: Vmax ? 1.5 m/s ??UMER (V) ?? 2.50 cm? ?? VTI ?0.38 m ?? UMER (I) ?? 2.38 cm? ?? LVOT V max 1.0 m/s ??Max PG ?9 mmHg LVOT VTI ?? 0.24 m ?? Mean PG ?? 4 mmHg SV ? 91 ml ?Dim Index 0.61 SV index ?? 43 ml/m? ?? CO ?5.1 l/min ?CI ?2.4 l/min/m? ?? Mitral Valve: MVA ?2.4 cm? ?? MV P 1/2 90 msec Tricuspid Valve and estimated PA pressur es: TAPSE 3.0 cm . This study was interpreted by an [facility] redited facility. CC: [facility], Med/ Surg - IP [facility]. ??Final ?? Procedure Note Timoteo Queen MD - 06/10/2022Fo rmatting of this note might be different from the original. ECHOCARDIOGRAM GIGI BETHEA : 1970 52 years Study Date: 06/10 2:45:04 PM Gender: M BP: 117/80 mmHg Height: 178.00 cm BSA: 2.13 m? ?? Weight: 95.00 kg Tech: ESHA Referring MD: SHANNON BRENNAN Site: [facility] Reading Location: [facility] [place] Procedure: 2D, Color Doppler and Spectra l Doppler. Indication for study: NSTEMI Cardiac Rhythm: Normal sinus.Study quali ty: Good. Final Impressions: 1. Normal LV size, normal global systol ic function with an estimated EF of 55 - 60%. 2. No definite regional wall motion abn ormality. 3. Right ventricular cavity size is nor mal, global systolic RV function is normal. 4. Mildly enlarged left atrium. 5. No significant valve disease detecte d. 6. The aortic sinus is normal for age/s ex/bsa with a maximal diameter of 3.8 cm. Comparison There are no prior studies on this patie nt for comparison purposes. Chamber Sizes and Function Normal left ventricular size, borderline wall thickness, normal global systolic function with an estimated EF of 55 - 60%. Left atrial size is mildly enlarged. Right ventricular cavity size is normal, global systolic RV function is normal. The right atrium is normal. Right atrial volume index is 24 ml/m? ??. Right atrial area is 16 cm? ??. The pulmonary artery is of normal size and origin. The sinus of Valsalva is normal for age/sex/bsa. The ascending aorta is norm al sized. Valves, RV Pressures and Diastolic Funct ion The aortic valve is trileaflet and scler otic, no stenosis and no regurgitation. The mitral valve is normal in structure, trace mitral regurgitation. Normal diastolic function. The tricuspid valve is normal in structure. Tricuspid regurgitation is re gurgitation is not evident. The pulmonic valve is normal. No pulmonary regurgitation. TTE images do not appear adequate for transcather intervention with patient supine. Masses, Effusion, Shunts There is no pericardial effusion. The in ferior vena cava is normal sized, respiratory size variation greater than 50%. No left to right shunting was detected by limited color flow Doppler interrogation of the interatrial septum. MEASUREMENTS AND CALCULATIONS 2-D Measurements and LV Function: LVID (d) 5.3 cm LV FS% (2D) 31 % LVID (s) 3.6 cm LVOT diameter 2.2 cm IVS (d) 1.2 cm HR 56 bpm LVPW (d) 1.2 cm LA Vol index 30 ml/m2 Ao Sinus 3.8 cm RA Vol index 24 ml/m2 Asc Ao 3.4 cm RA area 16 cm? ?? LA 4.0 cm RV Max 4C (d) 3.6 cm Diastology: Mitral Tissue Doppler E Peak 0.6 m/s e', Septum 0.09 m/s A Peak 0.4 m/s e', Lateral 0.12 m/s E/A 1.5 E/e' Average 6.14 DT 310 msec Aortic Valve: Vmax 1.5 m/s UMER (V) 2.50 cm? ?? VTI 0.38 m UMER (I) 2.38 cm? ?? LVOT V max 1.0 m/s Max PG 9 mmHg LVOT VTI 0.24 m Mean PG 4 mmHg SV 91 ml Dim Index 0.61 SV index 43 ml/m? ?? CO 5.1 l/min CI 2.4 l/min/m? ?? Mitral Valve: MVA 2.4 cm? ?? MV P 1/2 90 msec Tricuspid Valve and estimated PA pressur es: TAPSE 3.0 cm . This study was interpreted by an [facility] facility. CC: [facility] [place], [facility]/ Surg - IP [facility]. Final Shannon Brennan MD ECHO ORD from Last 3 Months Insurance Payer Benefit Plan / Subscriber ID Effective Dates Phone Addre ss Type Group WC WORKERS COMP WC WORKERS COMP [id number] 2009-Prese [address] [address] [place] [address] [employer] HP [id number] 2017-Presen [address] [place] [address] BLUE CROSS BLUE CROSS OF [id number] 2016-Presen [address] [facility] [place] [address] Gigi Bethea Comp Self 1970 [address] [place] [phone] JACK ANTONIO (Work) [id number] Gigi Bethea Comp Self 1970 [address] ([address]) [address] [place] [phone] JACK ANTONIO (Work) [id number] 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
--- OUTSIDE RECORDS SUMMARY | 2022-08-29 17:46 | XMS_ITS | Encounter Summary ---
:1970 Author Organization [facility] Address [address] [place] [address] Care Team Providers Name Role Phone None Reported, Pcp Primary Care Provider Unavailable Reason for Referral Outpatient (Routine) - Closed Specialty Diagnoses / Procedures Referred By Contact Refer red To Contact Neurology Diagnoses Neuropathy Jony Pringle M.D. [facility] Procedures Neurology - Peripheral nerve eConsult [address] [place] [phone] Referral ID Status Reason Start Date Expiration Date Visits Requ ested Visits Authorized [id number] Closed 05/22/2021 05/22/2022 1 1 Reason for Visit Outpatient (Routine) - Closed Specialty Diagnoses / Procedures Referred By Contact Refer red To Contact Video Medicine Diagnoses Other Seizures (HCC) Jony Pringle M.D. [facility] [address] [place] [phone] Referral ID Status Reason Start Date Expiration Date Visits Requ ested Visits Authorized [id number] Closed 05/15/2021 05/15/2022 1 1 Encounter Details Date Type Department Care Team Description 05/22/2021 Virtual Visit Department of Jony Pringle M.D. Neuropathy (Primary Dx); Neurology in [address] [place] [address] Other Seizures (HCC) [place], [place] [address] [place] [phone] [place], [place] [phone] (Work) [phone] Social History Tobacco Use Types Packs/Day Years Used Date Smoking Tobacco: Every Day Cigarettes Smokeless Tobacco: Current Chew Alcohol Use Standard Drinks/Week Comments Never 0 (1 standard drink = 0.6 oz pure alcoho l) Alcohol Habits Answer Date Recorded How often do you have a drink containing 4 or more times a w [place] 05/15/2021 alcohol? How many drinks containing alcohol [...] or relatives? How often do you attend lutheran or Patient refused 2020 mosque services? Do you belong to any clubs or Yes 05/15/2021 organizations such as lutheran groups, unions, fraternal or athletic groups, or [...] place to sleep or slept in a mcc (including now)? Education Answer Date Recorded What is the highest level of school you have completed or 12 th grade 05/15/2021 the highest degree you have received? Sex Assigned at Date Recorded Not on file documented as of this encounter Progress Notes Jony Pringle M.D. - 05/22/2021 1:30 PM CDT Consult conducted via real-time audio/video technology by Jony Pringle M.D. in [facility] patient in patient's home or location. This Video Visit was performed during the COVID-19 emergency, when many states had issued [id number]-[id number] orders. Report: I counseled Jonathan and Zoë about the followin. 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 We would like to see a higher concentration, but he is having mood dysfunction. We will not use oxcarbazepine, because he is also taking a diuretic, which will increase the risk of hyponatremia. They are willing to consider taking lacosamide (Vimpat). He did have an EKG, which was normal. We will gradually increase the dose. Potential side effects explained, such as dizziness or drowsiness or unsteadiness. The chance that he will develop cardiac arrhythmia is very small. He should not stop his Keppra, until he is on Vimpat. When he is on the target dose of 200 mg per day of Vimpat for 1 week, he will give me a call. We will see how he is doing at that time, and then decide ondiscontinuing the Keppra. 2. 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 I counseled him that the most likely cause is his excessive alcohol consumption. Vitamin B12 was normal, and so was TSH. I instructed him to do the following A. To work with his primary care provider to have formal professional program of coming off his habitual alcohol intake. B. Once his off the alcohol, he will let us know. We we will perform a neuropsychometric test C. He will have serum autoantibody drawn, because of the new onset seizures, cerebral atrophy, and axonal peripheral neuropathy D. We will plan on repeat MRI in a year for follow-up 3. 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 I will issue an electronic consult to ourperipheral astronaut mission specialist, to to seek further guidance on evaluation for this condition. All questions answered. Current Outpatient Medications: ??? allopurinoL (ZYLOPRIM) 300 mg tablet, Daily, Disp: , Rfl: ??? atenoloL (TENORMIN) 100 mg tablet, Take 100 mg by mouth daily., Disp: , Rfl: ??? buPROPion XL (WELLBUTRIN XL) 300 mg 24 hr tablet, Take 300 mg by mouth daily., Disp: , Rfl: ??? citalopram (CeleXA) 10 mg tablet, Take 10 mg by mouth daily., Disp: , Rfl: ??? lacosamide (VIMPAT) 50 mg tablet, Take one pill twice a day for one week. After 1 week, increaseto 2 pills twice a day., Disp: 120 tablet, Rfl: 4 ??? levETIRAcetam (KEPPRA) 1,000 mg tablet, Take 0.5 pill twice a day., Disp: 60 tablet, Rfl: 11 ??? lisinopril-hydroCHLOROthiazide (PRINZIDE,ZESTORETIC) 10-12.5 mg per tablet, Take 1 tablet by mouth daily., Disp: , Rfl: ??? omeprazole (PriLOSEC) [address] capsule, Take 20 mg by mouth daily., Disp: , Rfl: I personally spent a total of 25minutes in yvv-kgrs-ia-face time performing a review of the record and/or discussion with the patient/caregiver as described above. documented in this encounter Plan of Treatment Not on filedocumented as of this encounter Visit Diagnoses Diagnosis Neuropathy - Primary Other Seizures (HCC) documented in this encounter Care Teams Blocker And Sewer Relationship Specialty Start Date End Date None Reported, Pcp PCP - General Family Medicine 03/13/21 documented as of this encounter
--- OUTSIDE RECORDS SUMMARY | 2022-08-29 17:46 | XMS_ITS | Encounter Summary ---
:1970 Author Organization [facility] Address [address] [place] [address] Care Team Providers Name Role Phone None Reported, Pcp Primary Care Provider Unavailable Encounter Details Date Type Department Care Team Description 05/15/2021 Clinical Communication Department of Neurology Jony Cabrera M.D. in [facility] [address] [facility] [address] [place] [phone] Social History Tobacco Use Types Packs/Day Years Used Date Smoking Tobacco: Every Day Cigarettes Smokeless Tobacco: Current Chew Alcohol Use Standard Drinks/Week Comments Never 0 (1 standard drink = 0.6 oz pure alcoho l) Alcohol Habits Answer Date Recorded How often do you have a drink containing 4 or more times a w [place] 05/15/2021 alcohol? How many drinks containing alcohol [...] you attend baptism or Patient refused 2020 druze services? Do you belong to any clubs [...] slept in a skilled nursing (including now)? Education Answer Date Recorded What is the highest level of school you have completed or 12 th grade 05/15/2021 the highest degree you have received? Sex Assigned at Date Recorded Not on file documented as of this encounter Miscellaneous Notes Telephone Encounter - Nithya Navarrete, R.N. - 05/15/2021 10:54 AM CDT ----- Message from Jony Pringle M.D. sent at 05/15/2021 10:32 AM CDT ----- Regarding: blood collection H Nithya, Could you kindly set up the the following blood draw fo be done at [facility], either next Tuesday or Tuesday: 1. Pernicious anemia cascade2. TSH3. Levetiracetam concentration, trough4. Monoclonal gammopathy5. Fasting blood sugarThank you documented in this encounter Plan of Treatment Not on filedocumented as of this encounter Results (ABNORMAL) Levetiracetam Level (05/20/2021 9:01 AM CDT) athologist Signature Levetiracetam, 6.6 (L) 10.0 - 05/21/2021 SDSC S 40.0 12:03 PM CDT mcg/mL Comment: ----ADDITIONAL INFORMATION---- This test was developed and its performa nce characteristics determined by [facility] in a manner consistent with CLIA requirements. This test has not been cleared or approved by the [place] and Drug Administration. Specimen Anatomical Collection Method Collection Time Receive d Time (Source) Location / / Volume Laterality Blood (Blood, 05/20/2021 9:01 AM 05/21/20 21 7:29 Venous) CDT AM CDT Jony Pringle M.D. LAB BLOOD NON ADD-ON Performing Organization Address City/State/ZIP Code Phon e Number [facility] [address] [place] [id number] SUPPORT CENTER [facility] [place] [address] Laboratory Medicine and Pathology [address] (ABNORMAL) Monoclonal Gammopathy Diagnostic (05/20/2021 9:01 AM CDT) Component Value Ref Range Test Analysis Performed Pathologis t Method Time At Signature Therapeutic No SDSC Antibody 1 6:14 AM Administered? CDT Total 7.3 6.3 - 7.9 SDSC Protein, S g/dL 1 7:06 AM CDT [place] Free 2.55 (H) 0.3300 - SDSC Light Chain, 1.94 mg/dL 1 8:53 AM S CDT [place] Free 2.87 (H) 0.5700 - SDSC Light Chain, 2.63 mg/dL 1 8:53 AM S CDT [place]/Lambda 0.8885 0.2600 - SDSC FLC Ratio 1.65 [...] and its performa nce characteristics determined by [facility] in a manner consistent with CLIA requirements. This test has not been cleared or approved by the [place]. [place] d and Drug Administration. Specimen Anatomical Collection Method Collection Time Receive d Time (Source) Location / / Volume Laterality Blood (Blood, 05/20/2021 9:01 AM 05/21/20 21 6:14 Venous) CDT AM CDT [facility] R - 05/21/2021 9:33 PM CDT Specimen Information: Specimen ID: [id number] Specimen Type: Blood Specimen Collection Start Date: ??9:01 AM Specimen Received Date: 05/21/2021 ??6:14 AM Specimen ID: [id number] Specimen Type: Blood Specimen Collection Start Date: ??9:01 AM Specimen Received Date: 05/21/2021 ??6:14 AM Jony Pringle M.D. LAB BLOOD ADD-ON Performing Organization Address City/State/ZIP Code Phon e Number [facility] [address] [place], [place] [address] SUPPORT CENTER [facility] [place] [address] [address] [facility] [address] Pernicious Anemia [place] (05/20/2021 9:01 AM CDT) athologist Signature Vitamin B12 411 180 - 914 05/21/2021 [facility] Assay, S ng/L 9:58 AM CDT Specimen Anatomical Collection Method Collection Time Receive d Time (Source) Location / / Volume Laterality Blood (Blood, 05/20/2021 9:01 AM 05/21/20 7:45 Venous) CDT AM CDT Jony Pringle M.D. LAB BLOOD NON ADD-ON Performing Organization Address City/[facility]/ZIP Code Phon e Number [facility] [address] [place], [place] [address] SUPPORT CENTER [facility] [place] [address] Laboratory Medicine and Pathology [address] [place] [address] S-TSH (Thyroid-Stimulating Hormone - Sensitive) (05/20/2021 9:01 AM CDT) athologist Signature TSH, Sensitive 2.2 0.3 - 4.2 05/20/2021 NPRG mIU/L 9:40 AM CDT Specimen Anatomical Collection Method Collection Time Receive d Time (Source) Location / / Volume Laterality Blood (Blood, 05/20/2021 9:01 AM 05/20/20 21 9:05 Venous) CDT AM CDT Jony Pringle M.D. LAB BLOOD ADD-ON Performing Organization Address City/State/ZIP Code Phon e Number [facility] [address] [place], [place] [address] [facility] [place] [address] Glucose, Fasting (05/20/2021 9:01 AM CDT) P athologist Signature Glucose, P 84 70 - [...] Organization Address City/State/ZIP Code Phon e Number [facility]- [address] [place], [place] [address] [facility] [place] [address] [place] [address] [address] [facility] documented in this encounter Visit Diagnoses Diagnosis Other Seizures (HCC) - Primary Other Seizures (HCC) documented in this encounter Care Teams Group Dynamics Instructor Relationship Specialty Start Date End Date None Reported, Pcp PCP - General Family Medicine 03/13/21 documented as of this encounter
--- OUTSIDE RECORDS SUMMARY | 2022-08-29 17:46 | XMS_ITS | Encounter Summary ---
:1970 Author Organization [facility] Address [address] [place] [address] Care Team Providers Name Role Phone None Reported, Pcp Primary Care Provider Unavailable Reason for Visit Reason Comments Seizures Presents to ER via EMS after having a witnessed 45 second grand mal seizure. Patient was post dictal for 25 minutes. Is alert and oriented at this time. Encounter Details Date Type Department Care Team Description 03/13/2021 Emergency [facility] [place] M.D. [address] [place] [id number] Seizure (HCC) (Primary Department Sierra Charles M.D. Dx) [address] [place] [address] [phone] Social History Tobacco Use Types Packs/Day Years Used Date Smoking Tobacco: Never Smokeless Tobacco: Current Chew Alcohol Use Standard Drinks/Week Comments Never 0 (1 standard drink = 0.6 oz pure alcoho l) Alcohol Habits Answer Date Recorded How often do you have a drink containing 4 or more times a w [place] 05/15/2021 alcohol? How many drinks containing alcohol [...] or relatives? How often do you attend episcopalian or Patient refused 2020 mormon services? Do you belong to any clubs or Yes 05/15/2021 organizations such as episcopalian groups, unions, fraternal or athletic groups, or [...] place to sleep or slept in a residential (including now)? Sex Assigned at Date Recorded [...] CDT Inhaled Oxygen Concentration - - Weight 95.3 kg (210 lb) 03/13/2021 7:05 PM CDT Height 177.8 cm (5' 10) 03/13/2021 7:05 PM CDT Body Mass Index 30.13 03/13/2021 7:05 PM CDT documented in this encounter Discharge Instructions Discharge InstructionsToSierra portillo M.D. - 03/13/2021 8:24 PM CDT Return to the Emergency Department immediately if you develop chest pain, shortness of breath, weakness, numbness, confusion, lightheadedness, fever, blood loss, inability to eat or drink, or with any other new or concerning symptoms. Take Keppra as prescribed until you see neurology and they further guide the medication. Tonight's dose was given in the IV, start oral medications tomorrow. Continue with seizure precautions (no driving, swimming/bath, ladders or height, or other activities that may be dangerous should a seizure occur). Will need to return with additional seizure. Please follow up with your primary care doctor in the next 1-7 days regarding your visit to the Emergency Room. If you do not have a doctor, you can make an appointment at our local clinic by calling the appointment center at [phone]. Thank you for choosing [facility] for your care. It was a pleasure taking care of you today in our Emergency Department. AttachmentsThe following attachments cannot be sent through Care Everywhere. Seizure Adult (Turkmen)documented in this encounter Medications at Time of Discharge Medication Sig Dispensed Refills Start Date End Date allopurinoL (ZYLOPRIM) 300 Daily 0 0 mg tablet atenoloL (TENORMIN) 100 mg Take 100 mg by 0 12/05 tablet mouth daily. buPROPion XL (WELLBUTRIN Take 300 mg by 0 021 XL) 300 mg 24 hr tablet mouth daily. citalopram (CeleXA) 10 mg Take 10 mg by mouth 0 0 02/06/2021 tablet daily. lisinopril-hydroCHLOROthia Take 1 tablet by 0 zide (PRINZIDE,ZESTORETIC) mouth daily. 10-12.5 mg per tablet omeprazole (PriLOSEC) 20 Take 20 mg by mouth [address] capsule daily. levETIRAcetam (KEPPRA) Take 1 tablet 40 tablet 0 03/13/2021 05/15/2021 1,000 mg tablet (1,000 mg total) by mouth 2 (two) times a day for 20 days. documented as of this encounter ED Notes Sierra Charles M.D. - 03/13/2021 6:56 PM CDT Care of patient transferred to pr by Chantal. Disposition pending labs, reassessment. Here via EMS with a seizure for 35 seconds. Post-ictal but cleared rapidly. Second one in two weeks,prior was evaluated at an outside facility. No [facility] 4-7 beers per day, no history of withdrawal. CT negative on 02/27 at outside facility. Labs and EKG ordered. Exam is only notable for coarse intention tremor that is equal bilaterally. He states he has had this in the past. VITAL SIGNS BP 145/87 Pulse 78 Temp 36.5 ??C (Temporal) Resp 17 Ht 177.8 cm Wt 95.3 kg SpO2 97% BMI 30.13 kg/m?? ED Course as of Mar 13 2115TueMarch 13, 20211932 He was intubated with the episode 2 weeks ago, transferred to [facility]. They gave a driving restriction, had concerns this could be withdrawal (tremor noted at that time as well). I repeated an exam shortly after sign out, he is resting in bed, providing the above history. He states he had 3 beers last night which would be normal for him. He denies any complaints at this time aside from feeling a little fuzzy 1941 Ethanol, P: <10 1946 Patient would prefer to follow with neuro more locally, call placed to [facility]. Exam hereremains reassuring aside from intention tremor, he is watching his daughters graduation, providing his history and denying any new complaints 1950 Fitting acidosis from known seizure Bicarbonate, P(!): 12 1950 Likely 2/2 seizure, denies infectious symptoms White Blood Cell Count(!): 12.[address] York of Neurology. We [...] forward until he sees Neurology. Continue seizure precautions, and refer to Neurology for outpatient MRI and EEG, along with return precautions. I discussed with patient and family at bedside and they are comfortable with this plan. Based on his lack withdrawal symptoms during a greater than 2 day stay at [place] after the last event, it seemed less likely to Neurology and myself that this would be alcohol withdrawal related. The patient is very adamant that he has gone long periods in the past without drinking without side effects. I went over safety precautions including no ladders, no driving, and no exposing self to bodies of water that may result in drowning should a seizure occur. Warning signs for return were explained 2037 updated on her arrival. She does feel there was a brief prodrome where he felt off before the seizure. She is comfortable with plan, (f/u, meds, returns). He reports to feel at baseline, willd/c after keppra. 2113 Reassessed just prior to discharge. He is making jokes, he and confirm no history of withdrawal, and neuro exam is normal. Return precautions were explained, all questions answered. Final Diagnoses: as of Mar 13 2115 Seizure (HCC) Sierra Charles M.D. 03/13/212057 Sierra Charles M.D. 03/13/212114 Edgar Cornejo M.D. - 03/13/2021 6:52 PM CDT [facility] Department of Emergency [facility] 03/13/2021 7:12 PM CDT *Encounter labs and radiology results at the end of this note* Chief Complaint Patient presents with ??? Seizures Presents to ER via EMS after having a witnessed 45 second grand mal seizure. Patient was post dictal for 25 minutes. Is alert and oriented at this time. PCP: Pcp None Reported HPI: 51-year-old man with no known medical history and unable to obtain any in the emergency department on my initial presentation due to his postictal state. Patient presents by EMS after a in during a 32nd witnessed generalized tonic- clonic seizure while attending his daughter's graduation ceremony. He was seen in the [place] [facility] two weeks ago for a similar episode of ???altered mental status?? . Further records are on request but havenot been reviewed to this point. I did touch base with the nursing staff in [place] who reported that he did have a head CT performed which was negative for any acute infarction, hemorrhage, or intracranial mass. The patient remembers little about the episode though he does report feeling ???funny?? for a few minutes before hand. Denies any recent illnesses such as fevers chills nausea vomiting or diarrhea. Eating and drinking as per usual. He does report a 4-7 beer per night habit but denies any history of withdrawal symptoms or withdrawal seizures. He denies any medication noncompliance and denies taking any antiepileptics. A complete review of systems was obtained and negative except as in the HPI. Alcohol history as above. Denies any tobacco or illicit drugs. PHYSICAL EXAMINATION General: Well-appearing in no acute distress. HEENT: Head is normocephalic and atraumatic. Hearing and vision are grossly normal. No scleral icterus, jaundice, or pallor. Neck: Supple, with normal range of motion. Heart: Heart rate is normal and regular, no murmurs. Lungs: Clear to auscultation bilaterally, no wheezes or rales. Abdomen: Soft, nontender, nondistended. Skin: Warm and well-perfused Neuro: -Cranial nerves II-XII normal and symmetric -Strength 5/5 all four extremities -Sensation normal all four extremities -[id number] and heel to wynn with a course tremor, equal in all extremities -Speech normal, no dysarthria or slurring -No expressive or receptive aphasia -Initially confused and postictal, improving throughout the examination time frame. Psychiatric: Normal mood and affect. Differential diagnosis includes epileptic seizure, alcohol withdrawal seizure, medication induced seizure, arrhythmia, electrolyte abnormality, infection. MDM: 51-year-old man presenting with a 2nd seizure in two weeks, not currently on any anti epileptics, with an unknown workup and results other than a negative head CT at [place] two weeks ago. Initially he presented somewhat confused and consistent with a postictal state. He rapidly cleared even during my history taking and exam. Exam was unremarkable with the exception of a coarse intention tremor equal bilaterally and in the upper and lower extremities. This could be the result of prolonged postictal period or alcohol withdrawal. Labs are pending. Signed out to the charging operator pending results of the labs and likely discussion with Neurology as this patient may need to be started on antiepilept ics versus expedited for EEG. All of this is at the discretion of the nighttime physician. Final Diagnoses: as of Mar 13 1912 Seizure (HCC) Vitals: 03/13/21190303/13/211904 BP: 121/73 BP Location: Right arm;Upper Patient Position: Lying Pulse: 81 Resp: 22 Temp: 36.5 ??C TempSrc: Temporal SpO2: 96% Weight: 95.3 kg Height: 177.8 cm Medications sodium chloride 0.9 % injection 2-10 mL (has no administration in time range) NaCl 0.9 % bolus 1,000 mL (1,000 mL intravenous New Bag 03/13/211908) Clinical Impression: Final diagnoses: [R56.9] Seizure (HCC) Disposition: Pending ED Prescriptions None Labs Reviewed CBC WITH DIFFERENTIAL, B BASIC METABOLIC PANEL, S/P ETHANOL, S DRUG SCREEN URINE No orders to display Edgar Cornejo M.D. 03/13/211911 documented in this encounter Plan of Treatment Not on filedocumented as of this encounter Procedures Procedure Name Priority Date/Time Associated Diagnosis Comme nts ETHANOL, S STAT 03/13/2021 7:03 PM Results f or this CDT procedure are i n the results section. CBC WITH STAT 03/13/2021 7:03 PM Results f or this DIFFERENTIAL, B CDT procedure ar e in the results section. MAGNESIUM, S STAT 03/13/2021 7:03 PM Results f or this CDT procedure are i n the results section. BASIC METABOLIC STAT 03/13/2021 7:03 PM Result s for this PANEL, S/P CDT procedure are i n the results section. ECG STAT 03/13/2021 7:01 PM Results f or this CDT procedure are i n the results section. documented in this encounter Results Magnesium (03/13/2021 7:03 PM CDT) athologist Signature Magnesium, P 2.1 1.7 - 2.3 03/13/2021 [facility] mg/dL 8:10 PM CDT Specimen Anatomical Collection Method Collection Time Receive d Time (Source) Location / / Volume Laterality Blood (Blood, 03/13/2021 7:03 PM 03/13/20 7:59 Venous) CDT PM CDT Sierra Charles M.D. LAB BLOOD ADD-ON Performing Organization Address [facility] Phon e Number [address] [address] [address] [place] [place] [phone] Ethanol Level, Serum (03/13/2021 7:03 PM CDT) athologist Signature Ethanol, P <10 <10 mg/dL 03/13/2021 7:41 NPR[facility] PM CDT Specimen Anatomical Collection Method Collection Time Receive d Time (Source) Location / / Volume Laterality Blood (Blood, 03/13/2021 7:03 PM 03/13/20 7:10 Venous) CDT PM CDT Edgar Cornejo M.D. LAB BLOOD NON ADD-ON Performing Organization Address [facility] Phon e Number [place] [address] [place], [place] [address] [facility] [place] [phone] [place] (ABNORMAL) Basic Metabolic Panel (03/13/2021 7:03 PM CDT) P athologist Signature Potassium, P 4.0 3.6 - 5.2 03/13/2021 NPRG mmol/L 7:41 PM CDT Sodium, P 135 135 - 145 03/13/2021 NPR[facility] mmol/L 7:41 PM CDT Chloride, P 91 (L) 98 - 107 03/13/2021 [facility] mmol/L 7:41 PM CDT Bicarbonate, P 12 (L) 22 - 29 03/13/2021 [facility] mmol/L 7:48 PM CDT Anion Gap, P 32 (H) 7 - 15 03/13/2021 NPR[facility] 7:48 PM CDT BUN (Blood Urea 14 8 - 24 03/13/2021 NPRG Nitrogen), P mg/dL 7:41 PM CDT Creatinine 1.31 0.74 - 03/13/2021 [facility] 1.35 mg/dL 7:41 PM CDT eGFR-Black/Afri 72 >=60 03/13/2021 NPR[facility] can Stateless mL/min/BSA 7:41 PM CDT Comment: ----ADDITIONAL INFORMATION---- Estimated GFR calculated using the 2009 CKD_EPI creatinine equation. eGFR Non-Black/ 63 >=60 mL/min/BSA 7:41 PM CDT NPRG Comment: ----ADDITIONAL INFORMATION---- Estimated GFR calculated using the 2009 CKD_EPI creatinine equation. Calcium, Total, P 9.9 8.6 - 10.0 mg/dL 03/13/2021 7:41 PM CDT NPRG Glucose, P 167 (H) 70 - 140 mg/dL 03/13/2021 7:41 PM CDT N PRG Specimen Anatomical Collection Method Collection Time Receive d Time (Source) Location / / Volume Laterality Blood (Blood, 03/13/2021 7:03 PM 03/13/20 7:10 Venous) CDT PM CDT Edgar Cornejo M.D. LAB BLOOD ADD-ON Performing Organization Address City/State/ZIP Code Phon e Number [facility] [address] [place], [place] [address] [place] [address] [facility] [address] (ABNORMAL) CBC with Differential, Blood (03/13/2021 7:03 PM CDT) [facility] gist Method Time Signature Hemoglobin 14.7 13.2 - 03/13/2021 NPRG 16.6 g/dL 7:23 PM CDT Hematocrit 43.4 38.3 - 03/13/2021 NPR[facility] 48.6 % 7:23 PM CDT Erythrocytes 4.44 4.35 - 03/13/2021 [facility] 5.65 7:23 PM CDT x10(12)/L MCV 97.7 78.2 - 03/13/2021 NPR[facility] 97.9 fL 7:23 PM CDT RBC Distrib Width 13.4 11.8 - 03/13/2021 NPR[facility] 14.5 % 7:23 PM CDT Platelet Count 321 (H) 135 - 317 03/13/2021 NPRG x10(9)/L 7:23 PM CDT Leukocytes 12.7 (H) 3.4 - 9.6 03/13/2021 NPRG x10(9)/L 7:23 PM CDT Neutrophils 9.88 (H) 1.56 - 03/13/2021 NPRG 6.45 7:23 PM CDT x10(9)/L Lymphocytes 1.97 0.95 - 03/13/2021 NPRG 3.07 7:23 PM CDT x10(9)/L Monocytes 0.77 0.26 - 03/13/2021 NPRG 0.81 7:23 PM CDT x10(9)/L Eosinophils 0.02 (L) 0.03 - 03/13/2021 NPRG 0.48 7:23 PM CDT x10(9)/L Basophils 0.04 0.01 - 03/13/2021 NPRG 0.08 7:23 PM CDT x10(9)/L Specimen Anatomical Collection Method Collection Time Receive d Time (Source) Location / / Volume Laterality Blood (Blood, 03/13/2021 7:03 PM 03/13/20 21 7:10 Venous) CDT PM CDT Edgar Cornejo M.D. LAB BLOOD ADD-ON Performing Organization Address City/State/ZIP Code Phon e Number [facility] [address] [place], [place] [address] [facility] [place] [address] ECG 12 Lead (03/13/2021 7:01 PM CDT) P athologist Signature Ventricular Rate 81 BPM MUSE ECG/Min ME Interval 178 ms MUSE QRSD Interval 108 ms MUSE QT Interval 400 ms MUSE QTC Interval 464 ms MUSE P [place] 55 degrees MUSE R [place] -3 degrees MUSE T Wave [place] 18 degrees MUSE Specimen Anatomical Collection Method Collection Time Receive d Time (Source) Location / / Volume Laterality 03/13/2021 7:01 PM 7:07 CDT PM CDT Impressions MUSE - 03/13/2021 7:07 PM CDT Normal sinus rhythm Normal ECG No previous ECGs available Reviewed by MISSY Holley Narrative This result has an attachment that is no t available. Procedure Note Leandro Patton Jr., M.D. - 03/13/2021For matting of this note might be different from the original. IMPRESSION: Normal sinus rhythm Normal ECG No previous ECGs available Reviewed by MISSY Holley Edgar Cornejo M.D. ECG ORDERABLES Performing Organization Address City/State/ZIP Code Phon e Number MUSE MUSE NA documented in this encounter Visit Diagnoses Diagnosis Seizure (HCC) - Primary documented in this encounter Administered Medications Inactive Administered Medications - up to 3 most recent administrations Medication Order MAR Action Action Date Dose Rate Site levETIRAcetam 3,000 mg in New Bag 03/13/2021 8:54 PM 3,000 mg 52 0 mL/hr NaCl 0.9% IVPB (KEPPRA) CDT 3,000 mg, intravenous, at 520 mL/hr, Administer over 15 Minutes, Once, On Tue03/13/21 at 2012, For 1 dose, Do NOT refrigerate. NaCl 0.9 % bolus 1,000 mL New Bag 03/13/2021 7:09 PM CDT 1,000 mL 1000 mL/hr 1,000 mL, intravenous, at 1,000 mL/hr, Administer over 1 Hours, Once, On Tue03/13/21 at 1859, For 1 dose sodium chloride 0.9 % injection 2-10 mL 2-10 mL, intravenous, As needed, line care, Starting o n Tue03/13/21 at 1857 documented in this encounter Active and Recently Administered Medications Times are shown in CDT. Scheduled Medication Order 03/11/2021 03/12/2021 03/13/2021 levETIRAcetam 3,000 mg in NaCl 0.9% IVPB (KEPPRA) (COMPLETED) 2053 (New Bag - Provider: France Jenkins R.N.)2108 (Stopped - Provider: France Jenkins R.N.) 3,000 mg, intravenous, at 520 mL/hr, Adm inister over 15 Minutes, Once, On Tue03/13/21 at 2012, For 1 dose, Do NOT refrigerate. NaCl 0.9 % bolus 1,000 mL (COMPLETED) 1908 (New Bag - Provider: Maria G Irwin R.N.)2020 (Stopped - Provider: France Jenkins R.N.) 1,000 mL, intravenous, at 1,000 mL/hr, A dminister over 1 Hours, Once, On Tue03/13/21 at 1859, For 1 dose PRN Medication Order 03/11/2021 03/12/2021 03/13/2021 sodium chloride 0.9 % injection 2-10 mL(Linked Group 1) 2-10 mL, intravenous, As needed, line care, Starting on 03/13 at 1857 Linked Groups Order Group 1: Place peripheral IV: No upper extremity site restrictions (CANCELED) Upper extremity site restriction: No upp er extremity site restrictions
Quantity of PIVs requested: One
STAT, Once, On Tue03/13/21 at 1858, For 1 occurrence And sodium chloride 0.9 % injection 2-10 mLJump to med 2-10 mL, intravenous, As needed, line ca re, Starting on Tue03/13/21 at 1857 documented in this encounter Care Teams Call Center Assistant Relationship Specialty Start Date End Date None Reported, Pcp PCP - General Family Medicine 03/13/21 documented as of this encounter
--- OUTSIDE RECORDS SUMMARY | 2022-08-29 17:46 | XMS_ITS | Encounter Summary ---
:1970 Author Organization [facility] Address [address] [place] [address] Care Team Providers Name Role Phone None Reported, Pcp Primary Care Provider Unavailable Reason for Visit Reason Comments COVID Inquiry Encounter Details Date Type Department Care Team Description 04/10/2021 Clinical Communication Department of Line, Covid Help COVID Inquiry Neurology in [place], [place] [address] [place] [phone] Social History Tobacco Use Types Packs/Day Years Used Date Smoking Tobacco: Never Smokeless Tobacco: Current Chew Alcohol Use Standard Drinks/Week Comments Never 0 (1 standard drink = 0.6 oz pure alcoho l) Alcohol Habits Answer Date Recorded How often do you have a drink containing 4 or more times a w [place] 05/15/2021 alcohol? How many drinks containing alcohol [...] or relatives? How often do you attend jain or Patient refused 2020 roman catholic services? Do you belong to any clubs or Yes 05/15/2021 organizations such as jain groups, unions, fraternal or athletic groups, or [...] place to sleep or slept in a [place] [facility] [place] (including now)? Sex Assigned at Date Recorded Not on file documented as of this encounter Miscellaneous Notes Telephone Encounter - Vance Zuly E - 04/10/2021 9:11 AM CDT What is the purpose of the call?: Standard Appointment Process Standard Appointment Process Have you tested positive for COVID-19 in the last 20 days OR do you have a pending COVID-19 test because you had symptoms?: No, neither apply What region is the appointment being requested?: More than 14 days [place]- follow local process (End Screening) Testing Recommendation Endpoint Is testing recommended? : Not recommended to test Plan: Endpoint recommendation: Followed regional [facility] *Reminder if sending patient for testing in [facility], route encounter to the correct testing pool. documented in this encounter Plan of Treatment Not on filedocumented as of this encounter Visit Diagnoses Not on filedocumented in this encounter Care Teams Java Spring Developer Relationship Specialty Start Date End Date None Reported, Pcp PCP - General Family Medicine 03/13/21 documented as of this encounter
[2022-08-29 17:50] LABS: NT Pro B Type NatriureticPept* 3280 PG/mL (0-125)
[2022-08-29 17:54] LABS: Lipase* 2486 U/L (23-300)
[2022-08-29 18:23] LABS: SARS PCR* Negative SARS-CoV-2 (Negative)
--- NOTE | 2022-08-29 18:33 | ED.NURSE ---
pt having ultrasound done. states pain tolerable now. plan admission
--- NOTE | 2022-08-29 19:19 | ED.NURSE ---
report given, pt will transfer to [address] via wheelchair with belongings.
--- NOTE | 2022-08-29 19:36 | PM.IMHP1 ---
Hospitalist- H&P: HPI History of Present Illness Date Seen: 08/29/22 Chief complaint: Vomiting,Upper Rt Abdominal Pain Narrative: Jonathan Cancino is a 52 year old male presents with a 1 day history of epigastric abdominal pain and vomiting. Patient was hospitalized at the end of May 2022 with similar illness and symptoms by his report. At that time he was diagnosed with duodenitis and pancreatitis. He also had elevated troponin but subsequently had a normal stress test and an unremarkable echocardiogram. He has been doing well since then until yesterday when he had vomiting and abdominal pain. He reports drinking 4-5 beers per day. His last drink was Tuesday evening, 2 days ago. He denies a history of alcohol withdrawal. Notes from his last hospital admission did indicate alcohol withdrawal. He reports that he did have 1 emesis that had coffee-ground appearance to it but he subsequently had green appearing emesis recurrently. He has been unable to eat any food. He has no appetite. When he drinks water he has vomiting in the last day. He reports no chest pain, shortness of breath, fever, cold, cough, diarrhea, constipation, melena, blood in his stool, urinary problems. No abdominal pain, nausea or vomiting except in the last day. Review of Systems Narrative: Review of systems is negative except as noted above [facility] Medical History Acid reflux Alcohol abuse, daily use Anxiety Depression Enlarged prostate Essential hypertension Gout Hypertension Perianal abscess Surgical History (Updated 08/29/22 @ 19:41 by Demetrius Brennan MD) S/P cervical spinal fusion S/P knee surgery Social History (Updated 08/29/22 @ 19:42 by Demetrius Brennan MD) Narrative: Not working currently secondary to disability from spine surgery. Injury occurred June 2020. He has been on disability since that time. He lives with his and his 16-year-old son. He has a 19-year-old daughter who is in college in [place]. He does not smoke. He reports 4-5 beers per day alcohol consumption Highest level of school completed/degree received: high school graduate Smoking Status: Former smoker What tobacco products do you use: cigarettes Smoking quit date/years: <= 15 years ago Do you use any of these nicotine containing products: None Second hand tobacco smoke exposure: No How often do you have a drink containing alcohol: never How many standard drinks containing alcohol do you have on a typical day: 5 or 6 How often do you have six or more drinks on one occasion: Daily or almost daily AUDIT-C Alcohol total score: 6 Non-prescribed substance use: denies use Caffeine: Yes (rare) service: No Meds Home Medications and Allergies Home Medications Medication Instructions Recorded Confirmed Type allopurinol 300 mg tablet 300 mg PO DAILY 06/10/22 08/29/22 History atenolol 100 mg tablet 100 mg PO DAILY 06/10/22 08/29/22 History bupropion HCl 300 mg 24 hr tablet, 300 mg PO DAILY 06/10/22 08/29/22 History extended release citalopram 10 mg tablet 10 mg PO DAILY 06/10/22 08/29/22 History hydroxyzine HCl 25 mg tablet 25 mg PO QID PRN 06/10/22 08/29/22 History omeprazole 20 mg capsule,delayed 20 mg PO DAILY 06/10/22 08/29/22 History release tamsulosin 0.4 mg capsule 0.4 mg PO DAILY 06/10/22 08/29/22 History Allergies Allergy/AdvReac Type Severity Reaction Status Date / Time Penicillins Allergy Verified 08/29/22 17:34 Exam Narrative: Exam Narrative: He is alert and appears in no obvious distress. He gives his own history with good detail. He is oriented to his circumstances. Head is without trauma. Eyes are normal. Sclerae nonicteric. Oropharynx is normal. Neck is supple without mass or adenopathy. Respirations are clear to auscultation. Breathing is unlabored. Cardiovascular: S1, S2, regular rate and rhythm. No murmur gallop or rub. Abdomen: Bowel sounds active. Abdomen is soft. He has moderate tenderness in the epigastrium and right upper quadrant. No peritonitis. No abdominal distention or ascites. Extremities with intact pulses and sensation. No edema. Minimal tremor. Const: Vital Signs, click to edit/add: Vital Signs - 24 hr 08/29/22 16:51 08/29/22 19:00 Temperature 98.4 F Pulse Rate [Pulse Oximeter] 75 60 Respiratory Rate 18 20 Blood Pressure [Le ft Upper Arm] 164/105 H 172/107 H Pulse Oximetry 95 99 Oxygen Delivery Me thod Room Air Documenting provider has reviewed patient's vital signs: yes Hospitalist - H&P: Result Labs Labs: Short CBC 08/29/22 Range/Units 17:20 WBC 16.66 H (4.50-11.00) K/uL Hgb 15.7 (13.5-17.5) gm/dL Hct 46.5 (37.0-53.0) % Plt Count 209 (140-440) K/uL BMP 08/29/22 17:20 Sodium 136 Potassium 3.6 Chloride 100 Carbon Dioxide 24 BUN 14 Creatinine 0.8 Glucose 114 Calcium 10.0 Liver Function 08/29/22 Range/Units 17:20 Total Bilirubin 1.0 (0.1-1.5) mg/dL Direct Bilirubin 0.3 (0.0-0.5) mg/dL AST 42 H (12-35) U/L ALT 26 (4-50) U/L Alkaline Phosphatase 140 (40-150) U/L Albumin 4.9 (3.3-5.0) g/dL Assessment and Plan Assessment and plan (1) Pancreatitis, alcoholic, acute: Problem comment: CT evidence of pancreatitis as well as biochemical evidence of pancreatitis. Likely cause is ongoing heavy alcohol use. I advised the patient that he will continue to have episodes like he had in May and again now if he continues to drink alcohol. Status: Acute (2) Duodenitis: Problem comment: On IV PPI. Uncertain as to how much of the abnormality on CT is duodenitis and how much is pancreatitis. Consider EGD with history of coffee-ground emesis. Status: Acute (3) Alcoholism: Problem comment: Initiate alcohol withdrawal protocol. I will start gabapentin empirically to help with management of withdrawal symptoms. Status: Acute Plan Admit for IV fluids, IV antiemetics, IV pain medication. Consider upper endoscopy to evaluate for coffee-ground emesis and duodenitis. Monitor for evidence of ongoing bleeding. Monitor for alcohol withdrawal. Total time spent today is 75 minutes, 45 minutes in coordination of care and discussing with patient and other providers ongoing evaluation management of pancreatitis and alcohol withdrawal
[2022-08-29 20:17] LABS: Magnesium* 2.1 mg/dL (1.5-2.6)
[2022-08-29 20:29] LABS: Troponin I* < 0.01 ng/mL (0.01-0.04)
[2022-08-29] MEDS: LACTATED RINGERS 1000 ML 1,000 ML 125 ML IV (20:37)
[2022-08-29] MEDS: GABAPENTIN 300 MG CAPSULE PO (20:44)
[2022-08-29] MEDS: THIAMINE 100 MG TABLET 250 MG PO (20:44)
[2022-08-29] MEDS: MORPHINE 2 MG/ML inj IVP ×2 (20:45→23:49)
[2022-08-29] MEDS: OXYCODONE 5 MG TABLET PO (23:49)
[2022-08-29] MEDS: LORazepam 1 MG TABLET PO (23:50)
[2022-08-30] VITALS (7 sets, daily range): BP systolic 115–173; BP diastolic 84–99; PULSE 59–67; RESP 14–20; TEMP 36.6–36.7; O2SAT 95–100
[2022-08-30 00:28] LABS: Appearance Urine Clear (Clear); Bilirubin Urine Negative (Negative); Blood Urine Negative (Negative); Color Urine Yellow (Yellow); Glucose Urine Negative (Negative); Ketones Urine Negative (Negative); Leukocyte Esterase Urine Negative (Negative); Nitrite Urine Negative (Negative); Protein Urine 1+ (Negative); Urobilinogen Urine 0.2 (0.2-1.0)
[2022-08-30 01:06] LABS: RBC Urine 0-2 (0-2); Squamous Epithelial Cell Urine Few (None-Few); WBC Urine 0-2 (0-5)
[2022-08-30] MEDS: LACTATED RINGERS 1000 ML 1,000 ML 125 ML IV ×3 (03:41→23:02)
[2022-08-30] MEDS: MORPHINE 2 MG/ML inj IVP ×4 (05:53→23:01)
[2022-08-30] MEDS: OXYCODONE 5 MG TABLET PO ×3 (05:54→20:22)
[2022-08-30 06:01] LABS: Lactate* 0.9 mmol/L (0.5-1.9)
[2022-08-30 06:03] LABS: Basophils Percent Auto 0.4 % (0.0-3.0); Eosinophils Percent Auto 1.6 % (0.0-7.0); Hematocrit 43.5 % (37.0-53.0); Hemoglobin* 14.3 gm/dL (13.5-17.5); Immature Granulocytes Pct Auto 0.1 %; Lymphocytes Percent Auto 16.9 % (20-44); Mean Corpuscular HGB Conc 33 gm/dL (32-36); Mean Corpuscular Hemoglobin 32 pg (26-34); Mean Corpuscular Volume 97 fL (80-100); Monocytes Percent Auto 6.2 % (0.0-11.0); Neutrophils Percent Auto 74.8 % (42.0-72.0); Platelet Count* 157 K/uL (140-440); RDW Coefficient of Variation % 13.9 % (11.5-15.5); Red Blood Count 4.51 m/uL (4.30-5.90); White Blood Count* 11.41 K/uL (4.50-11.00)
[2022-08-30 06:04] LABS: Slide Review Reflex No
[2022-08-30 06:16] LABS: Albumin* 4.3 g/dL (3.3-5.0)
[2022-08-30 06:17] LABS: Chloride* 97 mmol/L (96-114); Potassium* 3.8 mmol/L (3.6-5.1); Sodium* 134 mmol/L (135-149)
[2022-08-30 06:19] LABS: Bilirubin Direct* 0.2 mg/dL (0.0-0.5); Carbon Dioxide* 28 mmol/L (20-32); Creatinine* 0.8 mg/dL (0.5-1.5); Est. Creatinine Clearance* 111.53; Estimated Glomerular Filt Rate 106 ml/min; Total Protein* 8.3 g/dL (6.0-8.3)
[2022-08-30 06:20] LABS: Alanine Aminotransferase* 20 U/L (4-50); Alkaline Phosphatase* 117 U/L (40-150); Aspartate Amino Transferase* 39 U/L (12-35); Blood Urea Nitrogen* 13 mg/dL (7-30); Calcium* 9.4 mg/dL (8.4-10.6); Glucose* 91 mg/dL (60-115); Lipase* 1554 U/L (23-300)
--- NOTE | 2022-08-30 06:39 | PC.NURSE ---
Shift note: Pain 5/10 treated per eMAR with relief and pt is able to rest throughout he night. Inisial CIWA was 9, due to pain, tremors, and anxiety. RN treated per eMAR, pt appear to be more calm and comfortable. Pt tolerating clear liquids with no c/o nausea.
[2022-08-30 07:02] LABS: INR 1.15 (0.91-1.10); Prothrombin Time 15.4 Seconds
--- NOTE | 2022-08-30 09:41 | PM.IMPN1 ---
Progress Note: A&P Assessment and plan (1) Pancreatitis, alcoholic, acute: Problem details: CT evidence of pancreatitis as well as biochemical evidence of pancreatitis. Likely cause is ongoing heavy alcohol use. I advised the patient that he will continue to have episodes like he had in May and again now if he continues to drink alcohol. Status: Acute Assessment and Plan: Pain is better today. Advanced diet to full liquids. Continue IV fluids. I advised Jonathan to avoid alcohol and explored with him the reasons why he drinks and asked him to follow-up with his primary care provider establish care with a therapist. Have also asked our licensed master social worker to see him treatment options. (2) Duodenitis: Problem details: On IV PPI. Uncertain as to how much of the abnormality on CT is duodenitis and how much is pancreatitis. EGD 08/30/2022 was unremarkable. Status: Acute Assessment and Plan: As above (3) Essential hypertension: Status: Chronic (4) Alcoholism: Status: Chronic Assessment and Plan: Continue CIWA protocol. CIWA scores 0-1. Social work to see patient to discuss treatment options. I have asked patient to avoid alcohol use. (5) Alcohol abuse, daily use: Status: Chronic Assessment and Plan: As above (6) Hepatic steatosis: Problem details: Secondary to alcohol Status: Acute Assessment and Plan: I have discussed this diagnosis with Jonathan and have recommended that he abstain from alcohol. (7) Coffee ground emesis: Problem details: Reported by patient. 08/30/2022 EGD unremarkable. Status: Acute Assessment and Plan: Hemoglobin stable, no anemia. I put in an NPO order this morning and spoke with Dr. Virk who agreed to do an EGD this morning. It was unremarkable. Subjective Time Seen by Provider: 07:51 Date Seen: 08/30/22 Interval history: Jonathan tells me he is feeling a little bit better, but still has epigastric pain. He has been tolerating clears without any increased pain or difficulty when he eats them. He has had several popsicles and some water. He told me that on Tuesday around 3:30 a.m. he had an emesis that looked like coffee grounds. He had 2 more emesis which looked bilious and then another 1 later that again looked like coffee grounds. He has not had any vomiting since admission. We discussed his alcohol use and I noted that he has alcoholic fatty liver, pancreatitis and duodenitis almost certainly from alcohol use. He described a history of 2 seizures about 2 years ago as well as occasional tremors in his hands since then. I noted that given his current situation, no amount of alcohol is safe for him at present and asked him how I could help him abstain. He noted several reasons for why he drinks. These include that he likes the buzz he gets from alcohol and said that ?none of my medications do that for me.? He also has anxiety which he does not think his medications are helping. He is bored because he is at home on workman's comp for the past 2 years and has neck pain associated with that, which is another reason he drinks. He used to get daily headaches, but now these are about every other day. When talking about all this, he seemed defensive and said that if we could help him with these issues, including prescribing him medical marijuana, then he would stop drinking. I recommended that he start working more closely with his primary care provider to address these issues, because at present he has only been seeing his primary care provider about once a year and it does not appear that he has been working on addressing these issues. I also recommended that he see a therapist or wildlife and game protector to help him work on coping skills and address boredom and why he thinks he needs a buzz. Exam Narrative: Exam Narrative: General: No acute distress. Awake, alert, oriented x3. No pallor. No jaundice. Mild tremor of the hands noted. No asterixis. Cardiovascular: Regular rate and rhythm. Respiratory: Clear to auscultation bilaterally. No wheezes or crackles. Abdomen: Bowel sounds present. Soft, nondistended, tender in the epigastrium, no rebound tenderness or guarding. Extremities: No pedal edema. Const: Vital Signs, click to edit/add: Vital Signs - 24 hr 08/29/22 16:51 08/29/22 19:00 08/29/22 20:58 Temperature 98.4 F 97.8 F Pulse Rate Pulse Rate [Pulse Oximeter] 75 60 61 Respiratory Rate 18 20 20 Blood Pressure [Le ft Radial Artery] Blood Pressure [Le ft Upper Arm] 164/105 H 172/107 H Blood Pressure [Ri ght Radial Artery] 185/102 H Pulse Oximetry 95 99 99 Oxygen Delivery Me thod Room Air Room Air 08/29/22 21:14 08/29/22 21:35 08/29/22 23:11 Temperature 97.8 F 97.8 F Pulse Rate 71 Pulse Rate [Pulse Oximeter] 61 69 Respiratory Rate 20 22 Blood Pressure [Le ft Radial Artery] Blood Pressure [Le ft Upper Arm] Blood Pressure [Ri ght Radial Artery] 185/102 H 191/109 H Pulse Oximetry 99 99 Oxygen Delivery Me thod Room Air Room Air 08/29/22 23:00 08/30/22 01:00 08/30/22 01:00 Temperature 97.8 F 97.8 F Pulse Rate Pulse Rate [Pulse Oximeter] 69 62 62 Respiratory Rate 22 20 20 Blood Pressure [Le ft Radial Artery] Blood Pressure [Le ft Upper Arm] Blood Pressure [Ri ght Radial Artery] 146/98 H 146/98 H Pulse Oximetry 98 98 Oxygen Delivery Me thod Room Air Room Air 08/30/22 03:00 08/30/22 07:00 08/30/22 07:00 Temperature 98 F 98.1 F Pulse Rate 61 Pulse Rate [Pulse Oximeter] 66 65 Respiratory Rate 16 16 Blood Pressure [Le ft Radial Artery] 153/96 H Blood Pressure [Le ft Upper Arm] Blood Pressure [Ri ght Radial Artery] 173/99 H Pulse Oximetry 95 98 Oxygen Delivery Me thod Room Air Room Air Documenting provider has reviewed patient's vital signs: yes Labs Labs: Laboratory Results - last 24 hr 08/29/22 08/29/22 08/29/22 17:20 17:20 17:20 WBC 16.66 H RBC 4.98 Hgb 15.7 Hct 46.5 MCV 93 MCH 32 MCHC 34 RDW Coeff of [place] 13.8 Plt Count 209 Neut % (Auto) 82.2 H Lymph % (Auto) 10.3 L [place] % (Auto) 6.8 Eos % (Auto) 0.3 Baso % (Auto) 0.2 Neut # (Auto) 13.70 H Lymph # (Auto) 1.70 [place] # (Auto) 1.10 H Eos # (Auto) 0.00 Baso # (Auto) 0.00 Abs Immat Gran (auto) 0.00 Imm/Tot Granulo (auto) 0.2 INR Sodium 136 Potassium 3.6 Chloride 100 Carbon Dioxide 24 BUN 14 Creatinine 0.8 Estimated Creat Clear 111.53 Estimated GFR 106 Glucose 114 Lactate Calcium 10.0 Magnesium 2.1 Total Bilirubin 1.0 Direct Bilirubin 0.3 AST 42 H ALT 26 Alkaline Phosphatase 140 Troponin I < 0.01 L C-Reactive Protein 1.0 NT-Pro-B Natriuret Pep 3280 H Total Protein 9.4 H Albumin 4.9 Amylase 227 H Lipase 2486 H Urine Color Urine Appearance Urine pH Ur Specific [place] Urine Protein Urine Glucose (UA) Urine Ketones Urine Blood Urine Nitrite Urine Bilirubin Urine Urobilinogen Ur Leukocyte Esterase Urine RBC Urine WBC Ur Squamous Epith Cells Urine Bacteria Ethyl Alcohol SARS-CoV-2 (PCR) Negative SARS-CoV-2 08/29/22 08/30/22 08/30/22 17:20 00:10 05:56 WBC RBC Hgb Hct MCV MCH MCHC RDW Coeff of [place] Plt Count Neut % (Auto) Lymph % (Auto) [place] % (Auto) Eos % (Auto) Baso % (Auto) Neut # (Auto) Lymph # (Auto) [place] # (Auto) Eos # (Auto) Baso # (Auto) Abs Immat Gran (auto) Imm/Tot Granulo (auto) INR 1.15 H Sodium Potassium Chloride Carbon Dioxide BUN Creatinine Estimated Creat Clear Estimated GFR Glucose Lactate Calcium Magnesium Total Bilirubin Direct Bilirubin AST ALT Alkaline Phosphatase Troponin I C-Reactive Protein NT-Pro-B Natriuret Pep Total Protein Albumin Amylase Lipase Urine Color Yellow Urine Appearance Clear Urine pH 6.0 Ur Specific [place] 1.020 Urine Protein 1+ A Urine Glucose (UA) Negative Urine Ketones Negative Urine Blood Negative Urine Nitrite Negative Urine Bilirubin Negative Urine Urobilinogen 0.2 Ur Leukocyte Esterase Negative Urine RBC 0-2 Urine WBC 0-2 Ur Squamous Epith Cells Few Urine Bacteria None Ethyl Alcohol < 0.01 L SARS-CoV-2 (PCR) 08/30/22 08/30/22 08/30/22 05:56 05:56 05:56 WBC 11.41 H RBC 4.51 Hgb 14.3 Hct 43.5 MCV 97 MCH 32 MCHC 33 RDW Coeff of [place] 13.9 Plt Count 157 Neut % (Auto) 74.8 H Lymph % (Auto) 16.9 L [place] % (Auto) 6.2 Eos % (Auto) 1.6 Baso % (Auto) 0.4 Neut # (Auto) 8.50 H Lymph # (Auto) 1.90 [place] # (Auto) 0.70 Eos # (Auto) 0.20 Baso # (Auto) 0.00 Abs Immat Gran (auto) 0.00 Imm/Tot Granulo (auto) 0.1 INR Sodium 134 L Potassium 3.8 Chloride 97 Carbon Dioxide 28 BUN 13 Creatinine 0.8 Estimated Creat Clear 111.53 Estimated GFR 106 Glucose 91 Lactate 0.9 Calcium 9.4 Magnesium Total Bilirubin 1.0 Direct Bilirubin 0.2 AST 39 H ALT 20 Alkaline Phosphatase 117 Troponin I C-Reactive Protein NT-Pro-B Natriuret Pep Total Protein 8.3 Albumin 4.3 Amylase Lipase 1554 H Urine Color Urine Appearance Urine pH Ur Specific [place] Urine Protein Urine Glucose (UA) Urine Ketones Urine Blood Urine Nitrite Urine Bilirubin Urine Urobilinogen Ur Leukocyte Esterase Urine RBC Urine WBC Ur Squamous Epith Cells Urine Bacteria Ethyl Alcohol SARS-CoV-2 (PCR)
--- NOTE | 2022-08-30 11:06 | W.ANESCHARGE ---
Anesthesia Charges Start Date/Time Anesthesia Start Date: 08/30/22 Anesthesia Start Time: 10:50 Stop Date/Time Anesthesia Stop Date: 08/30/22 Anesthesia Stop Time: 11:02
--- NOTE | 2022-08-30 11:29 | W.ANESCHARGE ---
Anesthesia Charges Start Date/Time Anesthesia Start Date: 08/30/22 Anesthesia Start Time: 10:50 Stop Date/Time Anesthesia Stop Date: 08/30/22 Anesthesia Stop Time: 11:02
[2022-08-30] MEDS: THIAMINE 100 MG TABLET 250 MG PO ×2 (12:07→20:21)
[2022-08-30] MEDS: TAMSULOSIN HCL 0.4 MG CAPSULE PO (12:07)
[2022-08-30] MEDS: GABAPENTIN 300 MG CAPSULE PO ×2 (12:09→20:22)
[2022-08-30] MEDS: buPROPion XL 150 MG TABLET 300 MG PO (12:10)
[2022-08-30] MEDS: allopurinoL 300 MG TABLET PO (12:11)
[2022-08-30] MEDS: OMEPRAZOLE 20 MG CAPSULE DR PO (12:12)
[2022-08-30] MEDS: lisinopriL 10 MG TABLET PO (12:13)
[2022-08-30] MEDS: CITALOPRAM HYDROBROMIDE 20 MG TABLET 10 MG PO (12:13)
[2022-08-30] MEDS: FOLIC ACID 1 MG TABLET PO (12:14)
[2022-08-30] MEDS: atenoloL 50 MG TABLET 100 MG PO (12:15)
--- NOTE | 2022-08-30 14:50 | PC.SOCIAL ---
Met with pt in pt's room. Pt recalled this worker meeting with him during a previous hospital stay in May 2022. Pt states that he has stayed in his home and is trying to work things out with his . Discussed pt's alcohol drinking pattern each day. Pt reports that he drinks about 4 to 6 beers a day. Pt reports that he drinks most days but states that he has gone periods of time where he hasn't drank alcohol (a 2 week span). Pt reports that he had a work injury for the past two years and has been unable to work so he drinks to pass time. Pt doesn't feel his drinking alcohol is a concern as he states that he can go days without drinking and feels fine. Provided pt with resources for chemical health treatment and discussed the resources with him. Pt states that he is taking medications for depression and doesn't think the medications are helping him and he is instead drinking. Pt states he had a primary care provider that retired recently. Pt seen a new MD in May from the [facility] and would like to establish care with that MD. Suggested that Pt establish care with the MD in [place] and discuss the depression medication to explore options of medication. Pt will set an appointment with primary care. Pt accepted the information for chemical health resources. Informed pt that if he has any other questions he can reach out to the social work department.
--- NOTE | 2022-08-30 15:27 | PC.NURSE ---
Alert and oriented x 4, pleasant and clam, had EGD no abnormalities noted, clear liquid diet tolerated, has persistent head ache, upper abdominal area rates pain 4-5/10, pain managed with oxy and morphine PRN, Ind.
--- NOTE | 2022-08-30 17:43 | PC.NURSE ---
PATIENT PLEASANT AND COOPERATIVE, ALERT AND ORIENTED, CIWA 3, RATING PAIN IN UPPER ABDOMEN 4/10, PATIENT ALSO MENTIONS SLIGHT HEADACHE, BEING MANAGED WITH PRN OXYCODONE, TOLERATING CLD, PATIENT ORDERING FULL LIQUID FOR SUPPER, TELE SHOWING NSR, PASSING GAS BUT NO BOWEL MOVEMENT, UP IND, SHOWERED THIS AFTERNOON.
[2022-08-31 03:00] VITALS: BP 138/81; PULSE 70; RESP 18; TEMP 36.6; O2SAT 97
[2022-08-31] MEDS: MORPHINE 2 MG/ML inj IVP (04:25)
--- NOTE | 2022-08-31 05:06 | PC.NURSE ---
Shift note: Pt continuous to complain about the right upper quadrant pain of 5/10 which responded well with PRN Morphine. Denied n/v, dizziness, tremors and anxiety. Ambulate independently in room but require assistance disconnect SCD. Bp moderately high. Pt doing well on full liquid diet.
[2022-08-31] MEDS: LACTATED RINGERS 1000 ML 1,000 ML 125 ML IV (06:01)
[2022-08-31 07:00] VITALS: BP 150/97; PULSE 68; PULSE 69; RESP 18; TEMP 36.7; O2SAT 98
[2022-08-31] MEDS: OXYCODONE 5 MG TABLET PO (08:41)
[2022-08-31] MEDS: buPROPion XL 150 MG TABLET 300 MG PO (08:45)
[2022-08-31] MEDS: GABAPENTIN 300 MG CAPSULE PO (08:46)
[2022-08-31] MEDS: allopurinoL 300 MG TABLET PO (08:47)
[2022-08-31] MEDS: atenoloL 50 MG TABLET 100 MG PO (08:47)
[2022-08-31] MEDS: THIAMINE 100 MG TABLET 250 MG PO (08:49)
[2022-08-31] MEDS: TAMSULOSIN HCL 0.4 MG CAPSULE PO (08:50)
[2022-08-31] MEDS: CITALOPRAM HYDROBROMIDE 20 MG TABLET 10 MG PO (08:50)
[2022-08-31] MEDS: lisinopriL 10 MG TABLET PO (08:51)
[2022-08-31] MEDS: OMEPRAZOLE 20 MG CAPSULE DR PO (08:51)
--- NOTE | 2022-08-31 08:59 | P.DS_ITS ---
DS: Providers Provider Time Seen by Provider: 08:10 Date Seen: 08/31/22 Date of admission: 08/29/22 18:57 Primary care physician: Parker Peguero MD Admitting Clinician: Demetrius Brennan MD Attending Physician on discharge: Demetrius Brennan MD Date of Discharge: 08/31/22 DS: Diagnosis Discharge Diagnosis (1) Pancreatitis, alcoholic, acute: Status: Acute Problem details: CT evidence of pancreatitis as well as biochemical evidence of pancreatitis. Likely cause is ongoing heavy alcohol use. I advised the patient that he will continue to have episodes like he had in May and again now if he continues to drink alcohol. (2) Abdominal pain with vomiting: Status: Acute (3) Coffee ground emesis: Status: Acute Problem details: Reported by patient. 08/30/2022 EGD unremarkable. (4) Alcoholism: Status: Chronic (5) Alcohol abuse, daily use: Status: Chronic (6) Hepatic steatosis: Status: Acute Problem details: Secondary to alcohol (7) Essential hypertension: Status: Chronic DS: Summary Hospital Course Hospital Course: This is a 52-year-old male who came in for epigastric abdominal pain and vomiting. He had a similar episode at the end of May 2022 and was diagnosed and treated for duodenitis and pancreatitis at that time. At that time he also had an elevated troponin and subsequently had a normal stress test and unremarkable echocardiogram. He continues to drink about 4-5 beers per day. Although he has no history of alcohol withdrawal, he does note that he has a history of 2 seizures about 2 years ago and hand tremors on occasion since then. On presentation this time he was found to have CT and biochemical evidence of acute pancreatitis. Likely cause is heavy alcohol use. He also had coffee- ground emesis prior to presentation. On hospital day 2 he had an EGD done by Dr. Virk. This was unremarkable. I spoke with him about how alcohol use has affected his body and is evident by recurrent pancreatitis, duodenitis, and alcoholic fatty liver disease. On 3 separate days during this hospitalization he was advised by myself and another physician to avoid any further alcohol use. He also met with social workers to discuss treatment programs. Today he appears motivated to quit and states that he is going to do it on his own. We discussed how he has several underlying issues that are likely contributing to his alcohol use and that I would like him to address those by seeing his primary care provider as well as establishing with a counselor or therapist. He demon strated understanding. His abdominal pain has been getting better daily. He tolerated a full liquid diet yesterday and is advancing to regular diet today. If he tolerates this, he will be discharged home. He is in stable condition. Time Spent with Patient Time attestation: Total time spent providing and/or coordinating discharge services: Exam Narrative: Exam Narrative: General: No acute distress. Awake, alert, oriented x3. No pallor. No jaundice. Mild tremor of the hands noted. No asterixis. Cardiovascular: Regular rate and rhythm. Respiratory: Clear to auscultation bilaterally. No wheezes or crackles. Abdomen: Bowel sounds present. Soft, nondistended, nontender. Extremities: No pedal edema. Const: Vital Signs, click to edit/add: Vital Signs - 24 hr 08/30/22 11:00 08/30/22 15:00 08/30/22 15:00 Temperature 97.8 F 98.1 F Pulse Rate 60 Pulse Rate [Pulse Oximeter] 59 L 62 Respiratory Rate 14 16 Blood Pressure [Le ft Radial Artery] 134/90 H 115/85 Pulse Oximetry 98 98 Oxygen Delivery Me thod Room Air Room Air 08/30/22 19:00 08/30/22 19:00 08/30/22 23:00 Temperature 98.1 F 98 F 98 F Pulse Rate Pulse Rate [Pulse Oximeter] 67 64 64 Respiratory Rate 18 18 18 Blood Pressure [Le ft Radial Artery] 137/84 150/91 H 150/91 H Pulse Oximetry 98 100 100 Oxygen Delivery Me thod Room Air Room Air Room Air 08/30/22 23:00 08/30/22 23:00 08/31/22 03:00 Temperature 98 F Pulse Rate 65 Pulse Rate [Pulse Oximeter] 64 70 Respiratory Rate 18 18 Blood Pressure [Le ft Radial Artery] 138/81 Pulse Oximetry 97 Oxygen Delivery Me thod Room Air Documenting provider has reviewed patient's vital signs: yes DS: Data Data Completed and Pending Completed studies during hospitalization: Ordering Physician: Wilian Bob M.D. Date of Service: 08/29/22 Procedure(s): CT abdomen pelvis w con Accession Number(s): [id number] cc: Parker Peguero MD; Wilian Bob M.D.~ For Patients: As a result of the Cures Act, medical imaging exams and procedure reports are released immediately into your electronic medical record. You may view this report before your referring provider. If you have questions, please contact your health care provider. Indication: ABD PAIN/RIGHT SIDED Technique: Postcontrast CT abdomen and pelvis. 100 cc Isovue 370 intravenous contrast. Please note that all CT scans at this facility use dose modulation, iterative reconstruction, and/or weight-based dosing when appropriate to reduce radiation dose to as low as reasonably achievable. Comparison: 06/09/2022, 08/06/2021 Findings: Chronic inflammatory changes above uncinate process of pancreas again noted with adjacent retroperitoneal adenopathy extending to the portal caval region. Similar thickening of the adjacent duodenum. No gastric outlet obstruction. No drainable fluid collection. Kidneys and adrenal glands are normal without hydronephrosis or adrenal mass. Mild hepatic steatosis. No intrahepatic mass or stigmata of cirrhosis. Gallbladder and spleen normal. Vascular calcifications. No aneurysm. Lung bases clear. No free air. Degenerative changes at the sacroiliac joints and symphysis pubis. The bladder wall is mildly prominent likely related to incomplete distention. There is sigmoid diverticulosis. No diverticulitis. No evidence of inflammatory bowel disease. Impression: Chronic inflammatory changes involving the uncinate process of the pancreas with extension to the adjacent duodenum including retroperitoneal stranding and adenopathy. Correlation with GI consultation recommended if this has been performed. Additional imaging recommendations would include MRCP/ERCP. Hepatic steatosis. No cirrhosis. No drainable fluid collection. Sigmoid diverticulosis. No diverticulitis. Mild bladder wall thickening which may be due to incomplete distention, correlate with possible cystitis. Please note that all CT scans at this facility use dose modulation, iterative reconstruction, and/or weight-based dosing when appropriate to reduce radiation dose to as low as reasonably achievable. Dictated by Iftikhar Negrete MD @ 08/29/2022 6:11:57 PM (Electronically Signed) Ordering Physician: Wilian Bob M.D. Date of Service: 08/29/22 Procedure(s): US abdomen limited Accession Number(s): [id number] cc: Parker Peguero MD; Wilina Bob M.D.~ For Patients: As a result of the 21st Century Cures Act, medical imaging exams and procedure reports are released immediately into your electronic medical record. You may view this report before your referring provider. If you have questions, please contact your health care provider. INDICATION: Right upper quadrant abdomen pain. TECHNIQUE: Ultrasound abdomen limited. Sonographic images of the right upper quadrant were obtained using moran-scale and color Doppler images. COMPARISON: Abdominal CT from the same day. FINDINGS: Liver: Enlarged, measuring 19.5 cm. Mild diffuse increased hepatic echogenicity. No suspicious masses. No intrahepatic biliary dilatation. Gallbladder: No stones or sludge. Normal wall thickness. No pericholecystic fluid. Common bile duct: 3 mm. Pancreas: Unremarkable. Right kidney: Normal in size. Normal echotexture and cortex. No suspicious masses, stones, or hydronephrosis. Vasculature: Proximal abdominal aorta and IVC are unremarkable. IMPRESSION: Hepatomegaly with mild hepatic steatosis. Normal gallbladder. Dictated by Kaiden Quiroga MD @ 08/29/2022 7:15:11 PM (Electronically Signed) Discharge Plan Discharge Disposition: Home, Self-Care Date of Admission: 08/29/22 18:57 Attending Provider on Discharge: Valencia Pineda Primary Care Provider: Parker Peguero Condition: Improved Anticipated Discharge Date/Time: 08/31/22 11:00 Discharge Medications: Continued allopurinol 300 mg tablet 300 mg PO DAILY atenolol 100 mg tablet 100 mg PO DAILY bupropion HCl 300 mg tablet extended release 24 hr 300 mg PO DAILY citalopram 10 mg tablet 10 mg PO DAILY omeprazole 20 mg capsule,delayed release(DR/EC) 20 mg PO DAILY tamsulosin 0.4 mg capsule 0.4 mg PO DAILY hydroxyzine HCl 25 mg tablet 25 mg PO QID PRN folic acid 1 mg Tablet 1 mg PO DAILY 30 Days Qty: 30 0RF Lactobacillus acidophilus 0.5 mg (100 million cell) Tablet 1 mg PO TIDWM 90 Days Qty: 180 0RF Rx Instructions: May substitute with a different pro-biotic, following the directions on the product label, for a total of 3 months. lisinopril 10 mg Tablet 10 mg PO DAILY 30 Days Qty: 30 1RF oxycodone 5 mg Tablet 5 mg PO TID PRN (Reason: Pain) 7 Days Qty: 15 0RF thiamine mononitrate (vit B1) 100 mg tablet 100 mg PO DAILY Qty: 90 0RF Discharge Orders: Discharge Order (Routine); Ordered 08/31/22 Ordered By: Valencia Pineda Patient Education: Abuse of Alcohol (DC) Additional Instructions: Avoid ALL alcohol. Establish with a counselor or therapist. Activity Level: No Restrictions Discharge Diet: Regular Follow Up Appointments: Parker Peguero MD [Primary Care Provider] - (5-7 days) TALI JOYCE DO [Referring] - Forms: [employer] Info Instructions
[2022-08-31] MEDS: FOLIC ACID 1 MG TABLET PO (09:01)
[2022-08-31 11:00] VITALS: BP 120/81; PULSE 65; RESP 18; TEMP 36.7; O2SAT 97
[2022-08-31] MEDS: ACETAMINOPHEN 325 MG TABLET 650 MG PO (11:27)
--- NOTE | 2022-08-31 13:19 | PC.NURSE ---
Went over discharge instructions patient verbalized understanding, waiting for ride. Alert and Oriented x4, reported RUQ with radiation to back pain 02/23. Pain managed with PRN oxy and tylenol. Ind, tolerating regular diet. IV removed.
== END 2022-08-31 13:30 | disposition home or self-care (01) | DRG 440 ==
LOC: ED 18:19 → MEDSURG 18:45
PROVIDERS: Admitting Provider Family Medicine; Emergency Provider Family Medicine; PCP Family Medicine; Visit Provider Family Medicine
DX: K85.20 Alcohol induced acute pancreatitis without necrosis or infection (principal); F10.20 Alcohol dependence, uncomplicated; K70.0 Alcoholic fatty liver; K29.80 Duodenitis without bleeding; R11.2 Nausea with vomiting, unspecified; I10 Essential (primary) hypertension; F41.9 Anxiety disorder, unspecified; F32.A Depression, unspecified; M10.9 Gout, unspecified
CPT/HCPCS: 00731; 36415; 43235; 74177; 76705; 80048; 80076; 81001; 82077; 82150; 83605; 83690; 83735; 83880; 84484; 85025; 85610; 86140; 87635; 99284; A9270; C9113; J2270; J2704; J7030; J7120; Q9967

== ENCOUNTER 2023-12-04 14:12 | Emergency (ER) | payer OTHER, BC, SELFPAY ==
[2023-12-04 14:20] VITALS: PULSE 62; RESP 18; TEMP 36.2; O2SAT 99; BMI 28.9
--- NOTE | 2023-12-04 14:55 | ED_ITS ---
HPI - General Adult General Chief complaint: Skin/Abscess/Foreign Body Stated complaint: Popped abscess by anus Time Seen by Provider: 12/04/23 14:14 History of Present Illness HPI narrative: This 53-year-old male comes in with draining abscess in the perianal area. He states that he had significant amount of pain and had put some gauze in the upper fold of his cheeks. His removed the gauze and there was the fair amount of bloody purulent discharge. The patient states that he is feeling significantly better after the this had drained. He states that he has a prior history of pilonidal cyst about 4 years ago and did see a surgeon and had some procedure to help close up that potential space. He reports a fever of 102.9 last evening. He states that he is otherwise in good health. Related Data Home Medications Medication Instructions Recorded Confirmed allopurinol 300 mg tablet 300 mg PO DAILY 06/10/22 12/04/23 atenolol 100 mg tablet 100 mg PO DAILY 06/10/22 12/04/23 bupropion HCl 300 mg 24 hr tablet, 300 mg PO DAILY 06/10/22 12/04/23 extended release citalopram 10 mg tablet 20 mg PO DAILY 06/10/22 12/04/23 hydroxyzine HCl 25 mg tablet 25 mg PO QID PRN 06/10/22 08/29/22 omeprazole 20 mg capsule,delayed 20 mg PO DAILY 06/10/22 12/04/23 release tamsulosin 0.4 mg capsule 0.4 mg PO DAILY 06/10/22 12/04/23 celecoxib 100 mg capsule (Celebrex) 100 mg PO DAILY 12/04/23 12/04/23 testosterone 10 mg/0.5 40 mg transdermal QAM 12/04/23 12/04/23 gram/actuation transdermal gel pump (Fortesta) Previous Rx's Medication Instructions Recorded Lactobacillus acidophilus 0.5 mg 1 mg (2 x 0.5 mg (100 million 06/15/22 (100 million cell) tablet cell)) PO TIDWM 90 days #180 tabs folic acid 1 mg tablet 1 mg PO DAILY 30 days #30 tabs 06/15/22 lisinopril 10 mg tablet 10 mg PO DAILY 30 days #30 tabs 06/15/22 oxycodone 5 mg tablet 5 mg PO TID PRN Pain 7 days #15 06/15/22 tabs thiamine mononitrate (vit B1) 100 100 mg PO DAILY #90 tabs 06/15/22 mg tablet amoxicillin 875 mg-potassium 1 tab PO BID 10 days #20 tabs 12/04/23 clavulanate 125 mg tablet hydrocodone 5 mg-acetaminophen 325 1 tab PO Q4-6H PRN pain #12 tabs 12/04/23 mg tablet Allergies Allergy/AdvReac Type Severity Reaction Status Date / Time Penicillins Allergy Verified 12/04/23 14:20 Review of Systems Status of ROS: Reports: 10 or more systems reviewed and unremarkable except as noted in History and below Narrative: Constitutional: No weight gain or loss. Fever last evening. Eyes: No discharge. No vision changes. HENT: No congestion, no sore throat, no ear pain. Cardiovascular: No chest pain, no palpitations. Respiratory: No shortness of breath, no wheezes, no cough. Gastrointestinal: No abdominal pain, no vomiting, no diarrhea. Genitourinary: No dysuria, no hematuria. Pilonidal cyst that ruptured. Musculoskeletal: Normal range of motion. Skin: No rashes, no pruritis. Neurological: No dizziness, weakness, sensory change, speech change. Endo/Heme/Allergies: No bruising or bleeding. No polydipsia. Pysch: no suicidality, no anxiety, no insomnia. All other systems reviewed and are negative. [facility] Medical History (Updated 12/04/23 @ 15:01 by Hayder Alvarado MD) Hepatic steatosis ?K76.0 - Fatty (change of) liver, not elsewhere classified (ICD-10) Pancreatitis, alcoholic, acute ?K85.20 - Alcohol induced acute pancreatitis without necrosis or infection (ICD-10) Alcoholism ?F10.20 - Alcohol dependence, uncomplicated (ICD-10) Perianal abscess ?K61.0 - Anal abscess (ICD-10) Alcohol abuse, daily use ?F10.10 - Alcohol abuse, uncomplicated (ICD-10) Essential hypertension ?I10 - Essential (primary) hypertension (ICD-10) Enlarged prostate ?N40.0 - Benign prostatic hyperplasia without lower urinary tract symptoms (ICD-10) Depression ?F32.A - Depression, unspecified (ICD-10) Gout ?M10.9 - Gout, unspecified (ICD-10) Hypertension ?I10 - Essential (primary) hypertension (ICD-10) Anxiety ?F41.9 - Anxiety disorder, unspecified (ICD-10) Acid reflux ?K21.9 - Gastro-esophageal reflux disease without esophagitis (ICD-10) Duodenitis ?K29.80 - Duodenitis without bleeding (ICD-10) Surgical History (Updated 08/29/22 @ 19:41 by Demetrius Brennan MD) S/P cervical spinal fusion ?Z98.1 - Arthrodesis status (ICD-10) S/P knee surgery ?Z98.890 - Other specified postprocedural states (ICD-10) Social History (Updated 08/29/22 @ 19:42 by Demetrius Brennan MD) Narrative: Not working currently secondary to disability from spine surgery. Injury occurred June 2020. He has been on disability since that time. He lives with his and his 16-year-old son. He has a 19-year-old daughter who is in college in [place]. He does not smoke. He reports 4-5 beers per day alcohol consumption Highest level of school completed/degree received: high school graduate Smoking Status: Former smoker Do you use any of these nicotine containing products: Smokeless Tobacco Second hand tobacco smoke exposure: No How often do you have a drink containing alcohol: 4 or more times a week Alcohol type: beer Alcohol type details: 5 beers/day How many standard drinks containing alcohol do you have on a typical day: 5 or 6 How often do you have six or more drinks on one occasion: Daily or almost daily AUDIT-C Alcohol total score: 10 Non-prescribed substance use: denies use Caffeine: No (rare) service: No Exam Narrative: Exam Narrative: Constitutional: Well-developed, well-nourished, no acute distress. HEENT: Normocephalic, atraumatic. Neck: Normal range of motion. Nontender. Supple. Heart: Regular. No murmurs. Normal rate. Intact distal pulses. Lungs: Clear to auscultation. No chest discomfort. No wheezes, rhonchi, or rales. Abdomen: Normal bowel sounds. Nontender. No rebound tenderness. Perianal: Just right of the gluteal fold in the area superior to the anus is an area of drainage but no currently palpable abscess. Back: No midline tenderness. Normal range of motion. Extremities: Normal range of motion. No injury. Skin: Intact. No rash. Warm. No erythema or pallor. Neurologic: No altered sensation. No weakness. Alert and oriented. Psychiatric: No suicidality. No anxiety or depression. No insomnia. Nursing notes and vitals signs are reviewed. Const: Vital Signs, click to edit/add: Vital Signs - 24 hr 12/04/23 14:20 Temperature 97.2 F L Pulse Rate [Pulse Oximeter] 62 Respiratory Rate 18 Pulse Oximetry 99 Oxygen Delivery Me thod Room Air Course Vital Signs Vital signs: Initial Vital Signs Temperature 97.2 F L 12/04/23 14:20 Temperature Source Temporal Artery Scan 12/04/23 14:20 Pulse Rate 62 12/04/23 14:20 Respiratory Rate 18 12/04/23 14:20 Pulse Oximetry 99 12/04/23 14:20 Oxygen Delivery Method Room Air 12/04/23 14:20 Vital Signs Temperature 97.2 F L 12/04/23 14:20 Pulse Rate 62 12/04/23 14:20 Respiratory Rate 18 12/04/23 14:20 Pulse Oximetry 99 12/04/23 14:20 Oxygen Delivery Method Room Air 12/04/23 14:20 Temperature 97.2 F L 12/04/23 14:20 Pulse Rate 62 12/04/23 14:20 Respiratory Rate 18 12/04/23 14:20 Pulse Oximetry 99 12/04/23 14:20 Oxygen Delivery Method Room Air 12/04/23 14:20 Medical Decision Making MDM Narrative Medical decision making narrative: This patient comes in reporting a fever and significant pain in the perianal region just superior and to the right of midline from the anus. He has had a pilonidal cyst in the past and states that this seems similar. Prior to arrival he had significant amount of drainage that happened spontaneously. He states that he is feeling better. He does have a small opening right at the juncture of the right gluteal fold with the sacrum just superior to the anus. There is no palpable sign of abscess that needs further drainage. I did apply some pressure to this area and there was no significant amount of drainage. I recommended packing this area with gauze. I used a micro [place] and when quarter-inch iodoform gauze and packed in the few inches into the wound. There was no anesthesia injected into this area as the opening seems sufficient for doing this. The patient tolerated this well enough. Instructions were given regarding wound care and recommendation is made to follow-up with surgery Clinic. The patient did receive a prescription for Augmentin and a few tablets of [place]. Discharge Plan Discharge Clinical Impression: Cyst, pilonidal, with abscess Patient Disposition: Home, Self-Care Condition: Stable Additional Instructions: Take medication as prescribed. Follow up with surgery Clinic for ongoing management. Call [phone] for appointment. Return if worsening. Prescriptions: New hydrocodone-acetaminophen 5-325 mg tablet 1 tab PO Q4-6H PRN (Reason: pain) Qty: 12 0RF amoxicillin-pot clavulanate 875-125 mg tablet 1 tab PO BID 10 Days Qty: 20 0RF No Action allopurinol 300 mg tablet 300 mg PO DAILY atenolol 100 mg tablet 100 mg PO DAILY bupropion HCl 300 mg tablet extended release 24 hr 300 mg PO DAILY citalopram 10 mg tablet 20 mg PO DAILY omeprazole 20 mg capsule,delayed release(DR/EC) 20 mg PO DAILY tamsulosin 0.4 mg capsule 0.4 mg PO DAILY hydroxyzine HCl 25 mg tablet 25 mg PO QID PRN folic acid 1 mg Tablet 1 mg PO DAILY 30 Days Qty: 30 0RF Lactobacillus acidophilus 0.5 mg (100 million cell) Tablet 1 mg PO TIDWM 90 Days Qty: 180 0RF Rx Instructions: May substitute with a different pro-biotic, following the directions on the product label, for a total of 3 months. lisinopril 10 mg Tablet 10 mg PO DAILY 30 Days Qty: 30 1RF oxycodone 5 mg Tablet 5 mg PO TID PRN (Reason: Pain) 7 Days Qty: 15 0RF thiamine mononitrate (vit B1) 100 mg tablet 100 mg PO DAILY Qty: 90 0RF celecoxib [Celebrex] 100 mg capsule 100 mg PO DAILY testosterone [Fortesta] 10 mg/0.5 gram /actuation gel in metered-dose pump 40 mg transdermal QAM Rx Instructions: apply evenly over front and inner area of one thigh; avoid water for >=2 hrs Follow Up/Referrals: Parker Peguero MD [Primary Care Provider] - Stand Alone Forms: [employer] Info Instructions
--- OUTSIDE RECORDS SUMMARY | 2023-12-04 15:24 | XMS_ITS | Clinical Summary ---
Author Name Unknown Organization [facility] Address [place], [place] [address] Care Team Providers Care Oncology Rn Name Role Phone Storm Birmingham MD, Randall MD Primary Care Provider [phone] Allergies Active Allergy Reactions Criticality Noted Date Comments Penicillins *Unknown 01/24/2007 Tizanidine Other - Describe In Comment Field Medium 07/09/2021 Light headed and dizzy Medications Medication Sig Dispensed Refills Start Date End Date Status citalopram (CELEXA) 10 mg tabletIndications:M ild recurrent major depression (HC) Take 1 Tablet (10 mg) by mouth once daily. 90 Tablet 1 03/08/2023 Active buPROPion (WELLBUTRIN XL) 300 mg Extended-Release tabletIndications:M ild recurrent major depression (HC) Take 1 Tablet (300 mg) by mouth once daily. 90 Tablet 3 04/25/2023 Active citalopram (CELEXA) 20 mg tabletIndications:M ild recurrent major depression (HC) Take 1 Tablet (20 mg) by mouth every morning. 90 Tablet 3 05/20/2023 Active celecoxib (CELEBREX) 100 mg capsuleIndications: Cervical spondylosis,Cervica l radiculopathy TAKE 1 CAPSULE (100 MG) BY MOUTH ONCE DAILY WITH A MEAL. 90 Capsule 0 08/10/2023 Active testosterone (FORTESTA) 10 mg/0.5 gram /actuation glpmIndications:Hyp otestosteronism Apply 40 mg on dry, clean, hairless skin once daily. 60 g 2 08/22/2023 Active tamsulosin (FLOMAX) 0.4 mg capsuleIndications: Lower urinary tract symptoms (LUTS) Take 1 Capsule (0.4 mg) by mouth once daily after a meal. 90 Capsule 3 10/31/2023 Active lisinopriL (PRINIVIL; ZESTRIL) 10 mg tabletIndications:E ssential hypertension Take 1 Tablet (10 mg) by mouth once daily. 90 Tablet 1 11/04/2023 Active atenoloL (TENORMIN) 100 mg tabletIndications:E ssential hypertension TAKE 1 TABLET BY MOUTH EVERY DAY 90 Tablet 0 11/21/2023 Active allopurinoL (ZYLOPRIM) 300 mg tabletIndications:H istory of gout TAKE 1 TABLET BY MOUTH EVERY DAY 90 Tablet 0 11/21/2023 Active omeprazole (PRILOSEC) 20 mg Delayed-Release capsuleIndications: Gastroesophageal reflux disease, unspecified whether esophagitis present TAKE ONE CAPSULE BY MOUTH EVERY DAY BEFORE A MEAL 90 Capsule 1 11/21/2023 Active omeprazole (PRILOSEC) 20 mg Delayed-Release capsuleIndications: Gastroesophageal reflux disease, unspecified whether esophagitis present Take 1 Capsule (20 mg) by mouth once daily before a meal. 90 Capsule 3 09/08/2022 4 Discontinued allopurinoL (ZYLOPRIM) 300 mg tabletIndications:H istory of gout Take 1 Tablet (300 mg) by mouth once daily. 90 Tablet 3 09/08/2022 4 Discontinued atenoloL (TENORMIN) 100 mg tabletIndications:E ssential hypertension Take 1 Tablet (100 mg) by mouth once daily. 90 Tablet 3 06/06/2023 4 Discontinued Active Problems Problem Noted Date Diagnosed Date Arthritis of right foot 11/29/2023 Alcoholic liver disease 05/07/2022 Gout 05/07/2022 Mood disorder 05/07/2022 Chronic headaches 05/07/2022 Cervical radiculopathy 08/17/2021 Cervicogenic headache 08/17/2021 Seizure disorder 08/17/2021 Chronic alcoholic pancreatitis 08/17/2021 Cervical spondylosis 03/04/2021 Encounters for unspecified administrative purpos e 08/28/2020 Mild alcohol dependence 07/01/2020 Alcohol use disorder, moderate, dependence 08/15 Hepatomegaly 08/11/2018 Overview: Severe on CT on 08/05/18 Hypertension 08/30/2017 Overview: Onset 2006 Impaired fasting glucose 07/02/2015 Gastroesophageal reflux disease 07/25/2014 Overview: EGD 09/2018 Reactive gastropathy History of gout 02/10/2013 Overview: New diagnosis 02/10/2013 right foot Mild recurrent major depression 03/21/2008 Unspecified sleep apnea 03/02/2007 Allergic rhinitis, cause unspecified 01/24/2007 Hyperlipidemia Dyspepsia and other specifie d disorders of function of stomach Obesity, unspecified Resolved Problems Problem Noted Date Diagnosed Date Resolved Date Unspecified essential hypertension 01/24/2007 08/30/2017 Encounters Date Type Department Care Team Description 11/30/2023 [place] [facility] [phone] [place] [address] Dexter Griffin MD Results 11/29/2023 11:45 AM INBOUND TELEMARKETER Ancillary Procedure [facility] [id number] [place] [address] 11/29/2023 11:15 AM INBOUND TELEMARKETER [place] [facility] [phone] [place] [address] Dexter Griffin MD Gi Problem (Change in his stools they aren't formed stools and oily) 11/29/2023 Tele[place] [facility] [phone] [place] [address] Dexter Griffin MD Results 11/29/2023 Travel 11/21/2023 [place] [facility] [address] [place] [address] Dexter Griffin MD Refill Request (Atenolol, Allopurinol, Omeprazole) 11/02/2023 [place] [facility] [address] [place] [address] Dexter Griffin MD Refill Request (Lisinopril/) 10/31/2023 Telephone [facility] [address] [place] [address] Parker Peguero MD Refill Request (Tamsulosin 0.4mg capsules ) from Last 3 Months Immunizations Name Administration Dates Next Due Hepatitis B (Adult) 05/20/2003,01/15/2003,2002 Influenza A (H1N1), Inactivated 08/09/2021,09/28 Influenza, IIV3 (Age >=3 years) 07/17/2018 Influenza, IIV4 06/24/2022,,08/05/2020,2018 Pneumococcal Conj 20-valent (Prevnar 20) 06/24/2022 Td (Age >=7 Years) 08/06/2019,06/04/1997 Tdap 03/21/2008 Zoster (Shingrix-RZV, recombinant) 05/20/2023, Family History Medical History Relation Name Comments Diabetes Mother Hypertension Sister 1 Hypertension Sister 2 Psychiatric illness Sister 3 Relation Name Status Comments Mother Sister 1 Sister 2 Sister 3 Social History Tobacco Use Types Packs/Day Years Used Date Smoking Tobacco: Former Cigarettes 1 15 1 2012 Smokeless Tobacco: Current Chew Tobacco Cessation:Ready to Q uit: Not Asked; Counseling Given: Not Answered Comments:no TOB since 08/05/12 Alcohol Use Standard Drinks/Week Comments Yes 30 (1 standard drink = 0.6 oz pure alcohol) he has cut back from 12 beers per day to about one daily. PHQ-2 Answer Date Recorded PHQ-2 TOTAL SCORE 2 01/24/2023 Social Connections Answer Date Recorded Frequency of Communication with Friends and Fami ly 0 01/24/2023 Financial Resource Strain Answer Date R ecorded Difficulty of Paying Living Expenses 3 01/24/2023 Difficulty of Paying Living Expenses Not on file 01/24/2023 Food Insecurity Answer Date Recorded Worried About Running Out of Food in the Last Ye ar 1 01/24/2023 Transportation Needs Answer Date Record ed Lack of Transportation (Medical) 1 01/24/2023 Housing Stability Answer Date Recorded Unable to Pay for Housing in the Last Year 1 01/24/2023 Sex and Gender Information Value Date Recorded Sex Assigned at Not on file Gender Identity Not on file Sexual Orientation Not on file Obstetrics History Last Filed Vital Signs Vital Sign Reading Time Taken Comments Blood Pressure 162/98 11/29/2023 11:15 AM INBOUND TELEMARKETER didn't take his meds this am Pulse 88 11/29/2023 11:15 AM INBOUND TELEMARKETER Temperature 36.5 ??C (97.7 ??F) 11/18/2022 1 0:19 AM INBOUND TELEMARKETER Respiratory Rate 14 11/18/2022 10:1 9 AM INBOUND TELEMARKETER Oxygen Saturation 98% 05/20/2023 8:3 4 AM CDT Inhaled Oxygen Concentration - - Weight 93.9 kg (207 lb) 11/29/2023 11:1 5 AM INBOUND TELEMARKETER Height 176.8 cm (5' 9.61) 07/20/2023 9 :52 AM CDT Body Mass Index 30.04 07/20/2023 9:52 AM CDT Plan of Treatment Upcoming Encounters Date Type Department Care Team (Late st Contact Info) Description 01/03/2024 11:15 AM CDT Office Visit [facility] [id number] [place] [phone] Yolette Rodas, LUZ [address] [place] [address] Health Maintenance Due Date Last Done Comments COVID-19 vaccine series (#1) 1970 Influenza for age 50-64 06/17/2023 06/24/20, 08/09/2021, 08/09/2021, Additional history exists Depression screening for age 12+ 01/28/2024 01/27/2023, 01/24/2023, 09/08/2022, Additional history exists BMI (ht and wt on same day) for age 18+ 07/20/2024 07/20/2023, 05/20/2023, 09/08/2022, Additional history exists Lipids for age 45-75 08/06/2024 08/06/2019, 08/30/2017, 08/05/2016, Additional history exists Tetanus booster 08/06/2029 08/06/2019, 06/0 02/2008, 06/04/1997 Colonoscopy through age 75 09/22/2032 09/22/2022 Tdap Completed 03/21/2008 Pneumococcal series for age 6-64 Completed 06/24/20 HIV for age 15-65 Completed 05/20/2023 Hepatitis C screening for ag e 18-79 Completed 05/20/2023 Zoster (shingles) series for age 50+ Completed 05/20/2023, 01/24/2023 Procedures Procedure Name Priority Date/Time Associated Diagnosis Comments TISSUE TRANSGLUTAMINASE IGA Routine 11/29/2023 11:54 AM INBOUND TELEMARKETER Diarrhea, unspecified type HEMOGLOBIN A1C SCREENING Routine 024 11:54 AM INBOUND TELEMARKETER Numbness in feet Hyperglycemia HEPATIC FUNCTION PANEL Routine 11:54 AM INBOUND TELEMARKETER Diarrhea, unspecified type LIPASE Routine 11/29/2023 11:54 AM INBOUND TELEMARKETER Diarrhea, unspecified type CELIAC CASCADE PANEL Routine 11/29/2023 11:54 AM INBOUND TELEMARKETER Diarrhea, unspecified type XR FOOT 3 VIEWS RIGHT Routine 11/29/2023 11:50 AM INBOUND TELEMARKETER Foot pain, right from Last 3 Months Results * (ABNORMAL) CELIAC CASCADE PANEL (11/29/2023 11:54 AM INBOUND TELEMARKETER) IGA 590.53(H) 84.50 - 499.00 mg/dL 11/30/2023 8:05 AM INBOUND TELEMARKETER [facility] Blood BLOOD SPECIMEN / Unknown Venipuncture / Unknown 11/29/2023 11:54 AM INBOUND TELEMARKETER 11/29/2023 11:55 AM INBOUND TELEMARKETER Narrative [facility] - 11/30/2023 8:05 AM INBOUND TELEMARKETER Reflexed to Tissue Transglutaminase IgA Dexter Griffin MD SEND OUTS [facility] [address] [place] [address], * HEMOGLOBIN A1C SCREENING (11/29/2023 11:54 AM INBOUND TELEMARKETER) HEMOGLOBIN A1C SCREENING 5.1 <=6.4 % 11/29/2023 5:48 PM INBOUND TELEMARKETER [facility] Blood BLOOD SPECIMEN / Unknown Venipuncture / Unknown 11/29/2023 11:54 AM INBOUND TELEMARKETER 11/29/2023 11:55 AM INBOUND TELEMARKETER [facility] - 11/29/2023 5:48 PM INBOUND TELEMARKETER ? (<5.7%) ?Normal ? (5.7% to 6.4%) ? Indicates prediabetes ? (>=6.5%) ? Confirms diabetes Falsely low levels may be seen with: Recent Transfusion, Recent Significant Blood Loss, Hemolytic Diseases, or Falsely elevated levels may be seen with: Untreated Anemias, Splenectomy Dexter Griffin MD CHEMISTRY [facility] [address] [place] [address] * TISSUE TRANSGLUTAMINASE IGA (11/29/2023 11:54 AM INBOUND TELEMARKETER) Pathologist [facility] TISSUE TRANSGLUTAMINASE IGA <1.2 <4.0 U/ml 11/30/2023 1:27 PM INBOUND TELEMARKETER [facility] Comment:Celiac disease unlik miguel angel unless IgA deficient. Recommend IgA levels if not already performed. Blood BLOOD SPECIMEN / Unknown Venipuncture / Unknown 11/29/2023 11:54 AM INBOUND TELEMARKETER 11/29/2023 11:55 AM INBOUND TELEMARKETER Narrative [facility] - 11/30/2023 1:27 PM INBOUND TELEMARKETER Negative ?<4.0 Weak Positive ?? 4-10 Positive ?>10.0 This test should not be solely relied upon to establish a diagnosis of celiac disease. Affected individuals who have been on a gluten-free diet prior to testing may have a negative result. These results were obtained using the Godigex R h-tTG IgA KATARINA assay. ??Values obtained from other manufacturers' assay methods may not be used interchangeably. Dexter Griffin MD SEND OUTS Performing Organization Address City/[facility]/ZIP Co de Phone Number [facility] [address] [place] [phone], * LIPASE (11/29/2023 11:54 AM INBOUND TELEMARKETER) LIPASE 33.4 13.0 - 60.0 IU/L 11/29/2023 7:06 PM [facility] Blood BLOOD SPECIMEN / Unknown Venipuncture / Unknown 11/29/2023 11:54 AM INBOUND TELEMARKETER 11/29/2023 11:55 AM INBOUND TELEMARKETER Dexter Griffin MD CHEMISTRY Performing Organization Address [facility] Co de Phone Number [facility] [address] [place] [address], [place] * (ABNORMAL) LIVER PANEL (HEPATIC FUNCTION PANEL) (11/29/2023 11:54 AM INBOUND TELEMARKETER) ALBUMIN 4.1 4.0 - 4.9 g/dL 11/29/2023 7:06 PM [facility] PROTEIN,TOTAL 7.9 6.0 - 8.0 g/dL 11/29/2023 7:06 PM [facility] BILIRUBIN,TOTAL 0.6 0.0 - 1.2 mg/dL 11/29/2023 7:06 PM [facility] BILIRUBIN,DIRECT <0.2 0.0 - 0.3 mg/dL 11/29/2023 7:06 PM [facility] BILIRUBIN,INDIRE CT 11/29/2023 7:06 PM [facility] Comment:Unable to calculate, Direct Bili <0.2 ALK PHOSPHATASE 131(H) 40 - 129 IU/L 11/29/2023 7:06 PM [facility] ALT (SGPT) 35 10 - 50 IU/L 11/29/2023 7:06 PM [facility] AST (SGOT) 78(H) 10 - 50 IU/L 11/29/2023 7:06 PM INBOUND TELEMARKETER [facility] Blood BLOOD SPECIMEN / Unknown Venipuncture / Unknown 11/29/2023 11:54 AM INBOUND TELEMARKETER 11/29/2023 11:55 AM INBOUND TELEMARKETER Dexter Griffin MD CHEMISTRY [facility] [address] [place] [address], * XR FOOT 3 VIEWS RIGHT (11/29/2023 11:50 AM INBOUND TELEMARKETER) Anatomical Region Laterality Modality FEET, FOOT R Computed Radiogr aphy Narrative 11/29/2023 2:21 PM INBOUND TELEMARKETER INDICATION: Swelling and popping COMPARISON: 02/10/2013 Technique: 3 views right ankle Findings: Narrowing and spurring at the midfoot noted including the first tarsometatarsal joint. ??Prominent dorsal spurring at the dorsal midfoot. ?? Small calcaneal spurs. ??No acute fracture. ??Mild spurring at the first MTP joint. Impression: Moderately severe midfoot degenerative joint disease particularly at the second tarsometatarsal joint, progressed since the prior exam. ??Podiatry referral should be considered along with CT of the foot to further evaluate the midfoot joint. Dexter Griffin MD GENERAL IMAGING from Last 3 Months Care Teams Oncology Rn Relationship Specialty [place] [id number] [place] [address] PCP - General Family Practice 01/24/23 Storm Birmingham MD General Surgery Surgery - General 04/21/12
[2023-12-04 15:25] VITALS: BP 110/68; PULSE 68; RESP 18; O2SAT 98
== END 2023-12-04 15:27 | disposition home or self-care (01) ==
LOC: ED 15:21
PROVIDERS: Emergency Provider Emergency Medicine Emergency Medical Services; PCP Family Medicine
DX: L05.01 Pilonidal cyst with abscess (principal)
CPT/HCPCS: 99283; 99284